=== PATIENT | male | born 1960 | race Caucasian/White ===

== ENCOUNTER → 2021-10-13 08:49 | Outpatient (CLI) | payer BC, SELFPAY ==
--- NOTE | ~2021-10-13 | XR_ITS ---
EXAMINATION: XR knee RT 2V DATE: 10/13/2021 09:08 INDICATION: Right knee pain. TECHNIQUE: 2 views of right knee standing were obtained. COMPARISON: None. FINDINGS: Bone alignment is normal. No fracture. There is mild osteoarthritis of lateral and patellof emoral compartments catheterized by tiny marginal osteophytes. No joint space narrowing. No knee join t effusion. IMPRESSION: 1. Mild right knee osteoarthritis. Reviewed, dictated and finalized at location A. CUTTER
== END ==
PROVIDERS: PCP Family Medicine; Visit Provider Family Medicine
DX: M25.561 Pain in right knee (principal); M17.11 Unilateral primary osteoarthritis, right knee
CPT/HCPCS: 73560

== ENCOUNTER 2022-03-24 00:42 | Day surgery (SDC) | payer BC, SELFPAY ==
[2022-03-16 11:45] VITALS: BMI 41.3
--- NOTE | 2022-03-23 14:34 | PM.HPGS ---
History of Present Illness History of Present Illness Consent: Risks, benefits, and alternatives have been discussed and questions answered. Patient agrees to proceed with procedure. Chief complaint: hx of colon polyps, neoplasm screening Narrative: Devin Smith is a 62 year old male Who was referred for colon cancer screening. He had a tubular adenoma removed about 5 years ago. Review of Systems Review of Systems: All systems reviewed & are unremarkable except as noted in HPI and below PMFSH Past Medical History Medical History BPH loc w urin obs/LUTS Chronic atrial fibrillation Essential hypertension Mixed hyperlipidemia Morbid obesity with BMI of 40.0-44.9, adult Nonrheumatic aortic valve insufficiency LÓPEZ (obstructive sleep apnea) Surgical History Surgical History H/O varicose vein stripping right History of oral cancer Family History Family History Father Hypertension Malignant neoplasm of prostate Family history of lung cancer Mother Hypertension Sibling Malignant neoplasm of prostate Social History Social History Smoking packs per day: 1 Smoking cigarettes per day: 20.0 Years smoked: 40 Smoking pack-years: 40.00 Smoking status: Current every day smoker Tobacco type: cigarettes Second hand tobacco smoke exposure: No Alcohol intake: current Drinks per week: 0 Alcohol use details: rare Substance use: never Substance use type: does not use Living arrangements: alone Gender identity (if verbalized by the patient): Male Sexual Orientation (if Verbalized by the Patient): Straight or Heterosexual Spiritual care concerns: No Meds Home Medications and Allergies Home Medications Medication Instructions Recorded Confirmed Type amlodipine 10 mg-benazepril 20 mg 1 cap PO DAILY #90 caps 10/13/21 03/16/22 Rx capsule (Lotrel) metoprolol succinate 200 mg 200 mg PO DAILY #90 tabs 10/13/21 03/16/22 Rx tablet,extended release 24 hr omeprazole 20 mg capsule,delayed 20 mg PO DAILY #90 caps 10/13/21 03/16/22 Rx release rivaroxaban 20 mg tablet (Xarelto) 20 mg PO DAILY #90 tabs 10/13/21 03/16/22 Rx tamsulosin 0.4 mg capsule 0.4 mg PO BID #180 caps 10/13/21 03/16/22 Rx Adults Multivitamin 1 tab-cap PO DAILY 03/16/22 03/16/22 History Glucosamine Chondroitin 2 tab-cap PO DAILY 03/16/22 03/16/22 History atorvastatin 40 mg tablet 40 mg PO HS 03/16/22 03/16/22 History hydralazine 50 mg tablet 50 mg PO TID 03/16/22 03/16/22 History Allergies Allergy/AdvReac Type Severity Reaction Status Date / Time No Known Allergies Allergy Verified 03/24/22 06:25 Exam Resp: Auscultation: clear to auscultation bilaterally Cardio: Rate: regular rate Rhythm: regular rhythm GI: GI Palp: Yes Soft to palpation and No Tenderness to palpation present (GI) Assessment and Plan Assessment and plan (1) Colon cancer screening: Code(s): Z12.11 - Encounter for screening for malignant neoplasm of colon Status: Acute Assessment and Plan: Colonoscopy with possible biopsy or polypectomy or cautery or injection of substances.
[2022-03-24 06:28] VITALS: BP 167/86; PULSE 97; RESP 21; TEMP 36.4; O2SAT 98
[2022-03-24] MEDS: LACTATED RINGERS 1,000 ML 150 ML IV CONT (06:51)
--- NOTE | 2022-03-24 07:14 | WPDANESEPPF ---
Anes - Initial Pre Proc Eval Procedure: Operation Date: 03/24/22 07:30 Proposed Procedures p Screening Colonoscopy - Armando Lind MD Date/Time: 03/24/22 07:15 Surgeon: Armando Lind MD Pre Op Diagnosis: hx of colon polyps, neoplasm screening Patient Data Age: 62 Gender: M Height: 1.93 m Weight: 150.4 kg Last Vital Signs Temp 36.4 C L 03/24/22 06:28 Pulse 97 03/24/22 06:28 Resp 21 H 03/24/22 06:28 BP 167/86 H 03/24/22 06:28 Pulse Ox 98 03/24/22 06:28 O2 Del Method Room Air 03/24/22 06:28 Allergies Allergy/AdvReac Type Severity Reaction Status Date / Time No Known Allergies Allergy Verified 03/24/22 06:25 Home Medications Medication Instructions Recorded Confirmed Type amlodipine 10 mg-benazepril 20 mg 1 cap PO DAILY #90 caps 10/13/21 03/16/22 Rx capsule (Lotrel) metoprolol succinate 200 mg 200 mg PO DAILY #90 tabs 10/13/21 03/16/22 Rx tablet,extended release 24 hr omeprazole 20 mg capsule,delayed 20 mg PO DAILY #90 caps 10/13/21 03/16/22 Rx release rivaroxaban 20 mg tablet (Xarelto) 20 mg PO DAILY #90 tabs 10/13/21 03/16/22 Rx tamsulosin 0.4 mg capsule 0.4 mg PO BID #180 caps 10/13/21 03/16/22 Rx Adults Multivitamin 1 tab-cap PO DAILY 03/16/22 03/16/22 History Glucosamine Chondroitin 2 tab-cap PO DAILY 03/16/22 03/16/22 History atorvastatin 40 mg tablet 40 mg PO HS 03/16/22 03/16/22 History hydralazine 50 mg tablet 50 mg PO TID 03/16/22 03/16/22 History Patient hx anesthesia problems: none Family hx anesthesia problems: none Results Review: All pre-operative results and documents have been reviewed as part of the pre-operative evaluation. [facility] Past Medical History Medical History (Updated 03/24/22 @ 07:17 by Jag Tinoco MD) BPH loc w urin obs/LUTS Chronic atrial fibrillation Essential hypertension Mixed hyperlipidemia Morbid obesity with BMI of 40.0-44.9, adult Nonrheumatic aortic valve insufficiency LÓPEZ (obstructive sleep apnea) Surgical History Surgical History H/O varicose vein stripping right History of oral cancer Family History Family History Father Hypertension Malignant neoplasm of prostate Family history of lung cancer Mother Hypertension Sibling Malignant neoplasm of prostate Social History Social History (Updated 10/13/21 @ 08:14 by Zenobia Aly) Smoking packs per day: 1 Smoking cigarettes per day: 20.0 Years smoked: 40 Smoking pack-years: 40.00 Smoking status: Current every day smoker Tobacco type: cigarettes Second hand tobacco smoke exposure: No Alcohol intake: current Drinks per week: 0 Alcohol use details: rare Substance use: never Substance use type: does not use Living arrangements: alone Gender identity (if verbalized by the patient): Male Sexual Orientation (if Verbalized by the Patient): Straight or Heterosexual Spiritual care concerns: No Anes - Eval Final PreProcedure Day of Procedure 03/24/22 07:15 Patient weight: morbidly obese Heart: regular rate and rhythm Lungs: clear to auscultation and normal air movement Airway: Mallampati scale class II Neurological: alert and oriented Last oral intake: >/= 8 hours ASA classification: III Emergent: no Anesthetic plan: proceed Anesthesia type and monitoring: general GIVS Results Review: All pre-operative results and documents have been reviewed as part of the pre-operative evaluation. Informed Consent: The patient's anesthetic plan and its attendant risks and benefits were discussed with the patient/family/POA. Questions were solicited and answers provided to the satisfaction of the patient/family/POA.
[2022-03-24 07:46] VITALS: BP 92/37; PULSE 77; RESP 19; O2SAT 96
[2022-03-24 07:56] VITALS: BP 116/64; PULSE 74; RESP 22; O2SAT 97
[2022-03-24 08:06] VITALS: BP 125/78; PULSE 76; RESP 23; O2SAT 98
== END 2022-03-24 08:08 | disposition home or self-care (01) ==
PROVIDERS: PCP Family Medicine; Visit Provider Internal Medicine Gastroenterology
PROC: 0DJD8ZZ Inspection of Lower Intestinal Tract, Via Natural or Artificial Opening Endoscopic (ICD-10-PCS; CPT 45378; principal; 2022-03-24 07:30)
DX: Z12.11 Encounter for screening for malignant neoplasm of colon (principal); K57.30 Diverticulosis of large intestine without perforation or abscess without bleeding; Z79.51 Long term (current) use of inhaled steroids; Z79.01 Long term (current) use of anticoagulants; N40.1 Benign prostatic hyperplasia with lower urinary tract symptoms; G47.33 Obstructive sleep apnea (adult) (pediatric); I10 Essential (primary) hypertension; E78.2 Mixed hyperlipidemia; I48.20 Chronic atrial fibrillation, unspecified; F17.210 Nicotine dependence, cigarettes, uncomplicated; E66.9 Obesity, unspecified; Z68.41 Body mass index [BMI] 40.0-44.9, adult; K63.5 Polyp of colon
CPT/HCPCS: 45380; 88305; J2704; J7120

== ENCOUNTER → 2022-05-14 10:32 | Outpatient (CLI) | payer BC, SELFPAY ==
--- NOTE | ~2022-05-14 | XR_ITS ---
EXAMINATION: XR knee RT min 4V DATE: 05/14/2022 11:14 INDICATION: Right knee pain TECHNIQUE: Four views of the right knee were obtained. COMPARISON: 10/13/2021 FINDINGS: Alignment is normal. No fracture or osteochondral lesion. There is [id number] tricomp artmental osteoarthritis characterized by tiny marginal osteophytes. No joint effusion/synovitis. IMPRESSION: 1. Mild to moderate osteoarthritis without acute osseous abnormality. Reviewed, dictated and finalized at location B.
--- NOTE | ~2022-05-14 | XR_ITS ---
EXAMINATION: XR knee LT min 4V DATE: 05/14/2022 11:14 INDICATION: Left knee pain TECHNIQUE: Four views of the left knee were obtained. COMPARISON: 09/19/2019 FINDINGS: Alignment is normal. No fracture or osteochondral lesion. There is mild tricompartmental os teoarthritis characterized by tiny marginal osteophytes. No joint effusion/synovitis. IMPRESSION: 1. Mild osteoarthritis without acute osseous abnormality. Reviewed, dictated and finalized at location B.
== END ==
PROVIDERS: PCP Family Medicine
DX: M17.0 Bilateral primary osteoarthritis of knee (principal)
CPT/HCPCS: 73564

== ENCOUNTER → 2022-06-30 09:59 | Outpatient (CLI) | payer BC, SELFPAY ==
--- NOTE | ~2022-06-30 | XR_ITS ---
XR lumbar spine 6V w bending DATE: 06/30/2022 10:30 INDICATION: Low back pain, left sciatica for several months TECHNIQUE: AP, lateral, coned lateral lumbosacral and bilateral oblique views. Flexion and extension lateral views COMPARISON: None FINDINGS: There is slight grade 1 anterolisthesis at L4-5 due to degenerative change at the apophysea l joints. No instability is noted on flexion or extension. No fracture or bone destruction. The lumbar pedicles are intact. No spondylolisthesis. There is mild to moderate degenerative spurring with relative preservation of lumbar and lumbosacral interspaces. The sacroiliac joints are intact. Abdominal aortic and iliac arterial calcifications without apparent aneurysm. IMPRESSION: Mild lumbar spine degenerative change Reviewed, dictated and finalized at location A.
== END ==
PROVIDERS: PCP Family Medicine
DX: M54.16 Radiculopathy, lumbar region (principal); M51.36 Other intervertebral disc degeneration, lumbar region
CPT/HCPCS: 72114

== ENCOUNTER 2022-10-07 10:29 | Outpatient (CLI) | payer BC, SELFPAY ==
--- NOTE | ~2022-10-07 | US_ITS ---
EXAMINATION: US venous doppler [facility] DATE: 10/07/2022 11:25 INDICATION: Left lower limb pain TECHNIQUE: Garica scale images without and with compression and Doppler images of the left lower extrem ity veins were obtained. COMPARISON: None FINDINGS: The left common femoral vein, profunda femoral vein, femoral vein, popliteal vein, peroneal trunk, posterior tibial veins, and greater saphenous vein are patent. IMPRESSION: 1. Patent left lower extremity veins. No evidence of deep venous thrombosis. Reviewed, dictated and finalized at location L. Y GO ROUND ATTENDANT
== END 2022-10-07 10:30 | disposition home or self-care (01) ==
PROVIDERS: PCP Family Medicine; Visit Provider Physician Assistant
DX: M79.662 Pain in left lower leg (principal)
CPT/HCPCS: 93970

== ENCOUNTER 2022-10-12 08:24 | Outpatient (CLI) | payer BC, SELFPAY ==
--- NOTE | ~2022-10-12 | US_ITS ---
US arterial ankle brachial ind INDICATION: Left calf pain TECHNIQUE: Segmental pressures and plethysmographic and Doppler waveforms of the brachial and lower e xtremity arteries were obtained. COMPARISON: None. FINDINGS: Right and left brachial artery pressures of 129 mm Hg and 125 mm Hg, respectively, are concordant (no rmal difference <= 30 mmHg). The right ankle-brachial index (THAD) is 1.14 (normal >= 0.9-1.0). The right great toe-brachial index (TBI) is 0.89 (normal >= 0.60). The left THAD is 0.53. The left TBI is 0.23. IMPRESSION: 1. Diminished left ankle and toe brachial indices consistent with moderate-severe peripheral arterial disease. 2: Normal right ankle and toe brachial indices. Reviewed, dictated and finalized at location A. PUMPER PANELBOARD IMPRESSION: 1. Diminished left ankle and toe brachial indices consistent with moderate-bora re peripheral arterial disease. 2: Normal right ankle and toe brachial indices.
== END 2022-10-12 08:25 | disposition home or self-care (01) ==
PROVIDERS: PCP Family Medicine; Visit Provider Physician Assistant
DX: M79.662 Pain in left lower leg (principal); R20.0 Anesthesia of skin; Z87.891 Personal history of nicotine dependence
CPT/HCPCS: 93922

== ENCOUNTER 2025-03-05 10:17 | Outpatient (CLI) | payer BC, SELFPAY ==
--- NOTE | ~2025-03-05 | XR_ITS ---
Clinical Indication: Pneumonia PA and lateral views of the chest: Comparison: 05/25/2017 Findings: There is central congestive change and possible minimal bibasilar pulmonary edema. Cardiom ediastinal silhouette is within normal limits. Bones and soft tissues are unremarkable. Impression: Central congestive change and possible minimal bibasilar pulmonary edema. Reviewed, dictated and finalized at location . Impression: Central congestive change and possible minimal bibasilar pulmonary edema.
== END 2025-03-05 10:18 | disposition home or self-care (01) ==
LOC: MICIMG 10:18
PROVIDERS: PCP Family Medicine; Visit Provider Student in an Organized Health Care Education/Training Program
DX: J18.9 Pneumonia, unspecified organism (principal)
CPT/HCPCS: 71046

== ENCOUNTER 2025-05-09 10:14 | Outpatient (CLI) | payer BC, SELFPAY ==
--- OUTSIDE RECORDS SUMMARY | 2025-05-09 11:32 | XMS_ITS | Encounter Summary ---
Author Organization [facility] Facility Care Team Providers Care Sports Media Name Role Phone Isaac Welch Primary Care Provider [phone] Kb Elkins MD Primary Care Provider Durga Pinzon MD Unavailable [phone] Encounter Details Date Type Department Care Team (Latest Contact Info) Description 03/02/2016 Orders Only [facility]INCON[facility] Provider, MD Michael [address] [place] [id number] Social History Tobacco Use Types Packs/Day Years Used Date Smoking Tobacco: Never Assessed Sex and Gender Information Value Date Recorded Sex Assigned at Not on file Legal 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 Historical Provider Final Res ult documented in this encounter Visit Diagnoses Not on filedocumented in this encounter Care Teams Sports Media Relationship Specialty Start Date End Date Isaac Welch PA [address] [facility] [address] [place] [address] PCP - General Physician Copy Director 10/12/22 10/20/22 Kb Elkins MD [address] [facility] [address] [place] [address] PCP - General Family Medicine 10/21/22 Durga Pinzon MD [address] [facility] [address] [facility] [address] [place] [address] Surgeon Vascular Surgery 11/11/22 documented as of this encounter
--- OUTSIDE RECORDS SUMMARY | 2025-05-09 11:33 | XMS_ITS | Encounter Summary ---
Author Organization [facility] Facility Care Team Providers Care Nylon Machine Operator Name Role Phone Isaac Welch Primary Care Provider [phone] Kb Elkins MD Primary Care Provider Durga Pinzon MD Unavailable [phone] Encounter Details Date Type Department Care Team (Latest Contact Info) Description 04/27/2016 Orders Only [facility] CLINCONV ProviderMichael MD [address] [place] [id number] Social History Tobacco Use Types Packs/Day Years Used Date Smoking Tobacco: Never Assessed Sex and Gender Information Value Date Recorded Sex Assigned at Not on file Legal Sex Male 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 Historical Provider [facility] CARDIAC SERVICES PROCE DURES Final Result documented in this encounter Visit Diagnoses Not on filedocumented in this encounter Care Teams Nylon Machine Operator Relationship Specialty Start Date End Date Isaac Welch PA [address] [facility] [address] [place] [address] PCP - General Physician Or Rn 10/12/22 10/20/22 Kb Elkins MD [address] [facility] [address] [place] [address] PCP - General Family Medicine 10/21/22 Durga Pinzon MD [address] [facility] [address] [facility] [address] [place] [address] Surgeon Vascular Surgery 11/11/22 documented as of this encounter
--- OUTSIDE RECORDS SUMMARY | 2025-05-09 11:33 | XMS_ITS | Encounter Summary ---
Author Organization [facility] Healthcare Address [address] [place] [address] Care Team Providers Care Tinsmith Apprentice Name Role Phone Kb Elkins MD Primary Care Provider Durga Pinzon MD Unavailable [phone] Encounter Details Date Type Department Care Team (Late st Contact Info) Description 03/26/2025 Telephone [facility] Cardiology [address] [facility] [address] [address] Giorgio Marcial MD [address] [place] [id number] Social History Tobacco Use Types Packs/Day Years Used Date Smoking Tobacco: Every Day Cigarettes 0.8 25 Smokeless Tobacco: Never AUDIT-C Answer Date Recorded Q1: How often do you have a drink containing alcohol? Never 10/25/2022 Q2: How many drinks containi ng alcohol do you have on a typical day when you are drinking? Patient does not drink Q3: How often do you have si x or more drinks on one occasion? 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 Gender Identity Male 10/27/2022 11:55 AM NEUROPSYCHIATRIC AIDE Sexual Orientation Straight 06/25/2023 10 :11 AM CDT documented as of this encounter Plan of Treatment Not on file documented as of this encounter Visit Diagnoses Not on filedocumented in this encounter Care Teams Tinsmith Apprentice Relationship Specialty Start Date End Date Kb Elkins MD [address] [facility] [address] [place] [address] PCP - General Family Medicine 10/21/22 Durga Pinzon MD [address] [facility] [address] [facility] [address] [place] [address] Surgeon Vascular Surgery 11/11/22 documented as of this encounter
--- OUTSIDE RECORDS SUMMARY | 2025-05-09 11:33 | XMS_ITS ---
Author Organization [facility] Address [address] [place] [address] Care Team Providers Care Line Supervisor Name Role Phone Kb Elkins MD Primary Care Provider Durga Pinzon MD Unavailable [phone] Active Problems Problem Noted Date Diagnosed Date Peripheral arterial disease 08/17/2024 Pulmonary hypertension 07/08/2023 Morbid (severe) obesity due to excess calories 1 09/07/2022 Body mass index 40.0-44.9, adult ([facility]) 07/08 Ischemic leg 10/21/2022 Assessment & Plan (11/19/2022 1:48 PM CDT): Patient is following up postoperatively status post thrombectomy and angioplasty of his left popliteal artery and left TP trunk and left posterior tibial artery. He also had stenting of the left popliteal artery this was done 4 left lower extremity ischemia on 10/25/2022. He is recovering well. Continues to complain of paresthesia to the left foot otherwise the pain and rest pain he was experiencing has resolved. His lower extremities are warm well perfused with palpable distal pulses. Seen with Dr. Pinzon. Plan: Return in 1 month with lower extremity arterial duplex. Assessment & Plan (10/21/2022 2:25 PM GREENBELT): Patient's clinical presentation and known past medical history make me suspect that this was an embolic event several weeks prior. Patient now experiences very short distance disabling claudication with intermittent paresthesias to the left foot. Have recommended direct admission to the hospital through the emergency department. Patient will be started on therapeutic heparin drip. Patient will require cardiac evaluation with known atrial fibrillation and plan for left lower extremity angiogram possible pharmacomechanical thrombectomy on Tuesday. The procedure indications and all associated risks have been explained. 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 Normal perfusion left lower extremity. Follow up 1 year with duplex. Continue current medical management. Assessment & Plan (07/01/2023 10:04 AM CDT): Status post intervention in September 2022. Patient continues to do well. Denies any claudication symptoms or rest pain. Recent Doppler shows bilateral triphasic waveforms with a patent popliteal stent. He maintains compliance with medications. Patient is strongly voiced his preference for a 1 year follow-up instead of 6 months. Discussed the reasoning behind six- month serial follow-ups in order to maintain patency of stents which patient was not agreeable to. Plan: Maintain compliance with medications, aspirin, Eliquis and Lipitor. Follow-up in 1 year with a lower extremity arterial duplex. Obesity 10/10/2019 Hypertensive left ventricular hypertrophy 2018 Aortic valve regurgitation 08/09/2016 Persistent atrial fibrillation 04/28/2016 Assessment & Plan (10/21/2022 2:25 PM GREENBELT): Admitted to the hospital started on therapeutic heparin drip. Consult cardiology for evaluation. Tobacco dependence syndrome 04/02/2016 Sleep apnea 03/29/2016 Essential hypertension 02/02/2016 Assessment & Plan (07/22/2024 2:06 PM GREENBELT): Hypertension chronic controlled. Continue current medical management. Assessment & Plan (10/21/2022 2:25 PM GREENBELT): Hypertension chronic and controlled. Continue Lotrel. 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 Continue current medical management. Tobacco use disorder 02/02/2016 Assessment & Plan (11/19/2022 1:47 PM CDT): Patient with history of tobacco abuse who is a current everyday 1/2 pack per day smoker. I had a greater than 3 minute discussion with the patient on the importance of smoking cessation and the negative affects on their cardiovascular health. Patient understands importance of cessation. Current Treatment and Therapy Plans No current plan information found. Past Treatment and Therapy Plans No past plan information found. Lifetime Dose Tracking * Chemical Lifetime Dose Automatic Entry Manual Entr y Fluoro Time 14.6 minutes 0 minutes 14.6 minutes Air kerma at the reference point (Ka,r) 383 mGy 0 mGy 383 mGy DAP 151.3 Gy-cm2 0 Gy-cm2 151.3 Gy-cm2
--- OUTSIDE RECORDS SUMMARY | 2025-05-09 11:33 | XMS_ITS | Encounter Summary ---
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 [employer] Gender Identity Male 10/27/2022 11:55 AM [employer]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 [employer]GET Sexual Orientation Straight 06/25/2023 10 :11 AM CDT documented as of this encounter Plan of Treatment Not on file documented as of this encounter Procedures Procedure Name Priority Date/Time Associated Diagnosis Comments THYROID FUNCTION CASCADE Routine 05/08/2025 10:09 AM CDT CBC WITH AUTO DIFFERENTIAL Routine 05/08/2025 10:09 AM CDT MAGNESIUM Routine 05/08/2025 10:09 AM CDT LIPID PANEL Routine 05/08/2025 10:09 AM CDT documented in this encounter Results * Magnesium (05/08/2025 10:09 AM CDT) Magnesium 1.9 1.5 - 2.5 mg/dL [facility] 05/08/2025 10:0 9 AM CDT 05/08/2025 10:14 AM CDT Narrative [facility] - 05/09/2025 5:35 AM CDT FASTING:YES FASTING: YES us Giorgio Marcial MD LAB BLOOD ORDERABLES Final Result [facility] [address] [place] [address] * Lipid panel (05/08/2025 10:09 AM CDT) Cholesterol 106 <200 mg/dL [facility] HDL 40 > OR = 40 mg/dL [facility] Triglycerides 51 <150 mg/dL [facility] LDL 53 mg/dL (calc) [facility] Comment: Reference range: <100 Desirable range <100 mg/dL for primary prevention; <70 mg/dL for patients with CHD or diabetic patients with > or = 2 CHD risk factors. LDL-C is now calculated using the Bart calculation, which is a validated novel method providing better accuracy than the Friedewald equation in the estimation of LDL-C. Johnathan PACHECO et al. KATALINA. 2013;310(19): 3846-7943 (http://education.Xquva/faq/LBG338) Chol/HDL ratio 2.7 <5.0 (calc) [facility] Non-HDL, (LDL+VLDL) 66 <130 mg/dL (calc) [facility] Comment: For patients with diabetes plus 1 major ASCVD risk factor, treating to a non-HDL-C goal of <100 mg/dL (LDL-C of <70 mg/dL) is considered a therapeutic option. 05/08/2025 10:0 9 AM CDT 05/08/2025 10:14 AM CDT Narrative [facility] - 05/09/2025 5:35 AM CDT FASTING:YES FASTING: YES Giorgio Marcial MD LAB BLOOD ORDERABLES Final Result Performing Organization Address [facility] Co de Phone Number [facility] [address] [place] [address] * Thyroid Function Ulysses (05/08/2025 10:09 AM CDT) Pathologist [facility] TSH 0.58 0.40 - 4.50 mIU/L [facility] 05/08/2025 10:0 9 AM CDT 05/08/2025 10:14 AM CDT Narrative [facility] - 05/09/2025 5:35 AM CDT FASTING:YES FASTING: YES Giorgio Marcial MD LAB BLOOD ORDERABLES Final Result Performing Organization Address [facility]/ZIP Co de Phone Number [facility] [address] [place] [address] * (ABNORMAL) CBC with auto differential (05/08/2025 10:09 AM CDT) WBC 7.3 3.8 - 10.8 Thousand/u L [facility] RBC, POC 5.50 4.20 - 5.80 Million/uL [facility] Hgb 17.2(H) 13.2 - 17.1 g/dL [facility] Hct 51.6(H) 38.5 - 50.0 % [facility] MCV 93.8 80.0 - 100.0 fL [facility] MCH 31.3 27.0 - 33.0 pg [facility] MCHC 33.3 32.0 - 36.0 g/dL [facility] Comment: For adults, a slight decrease in the calculated MCHC value (in the range of 30 to 32 g/dL) is most likely not clinically significant; however, it should be interpreted with caution in correlation with other red cell parameters and the patient's clinical condition. Rdw 13.0 11.0 - 15.0 % [facility] Platelets 247 140 - 400 Thousand/u L [facility] MPV 10.0 7.5 - 12.5 fL [facility] Neutrophils, abs 4,292 1,500 - 7,800 cells/uL [facility] Lymphocytes, abs 2,029 850 - 3,900 cells/uL [facility] Monocyte abs 781 200 - 950 cells/uL [facility] Eosinophils, abs 139 15 - 500 cells/uL [facility] Basophils, abs 58 0 - 200 cells/uL [facility] Neutrophils 58.8 % [facility] Lymphocyte pct 27.8 % [facility] Monocytes 10.7 % [facility] Eosinophils 1.9 % [facility] Basophils 0.8 % [facility] 05/08/2025 10:0 9 AM CDT 05/08/2025 10:14 AM CDT Narrative [facility] - 05/09/2025 5:35 AM CDT FASTING:YES FASTING: YES us Giorgio Marcial MD LAB BLOOD ORDERABLES Final Result [facility] [id number] [phone] documented in this encounter Visit Diagnoses Not on filedocumented in this encounter Care Teams Electric Solderer Relationship Specialty Start Date End Date Kb Elkins MD [address] [place] [address] PCP - General Family Medicine 10/21/22 Durga Pinzon MD [address] [facility] [address] [facility] [address] [place] [address] Surgeon Vascular Surgery 11/11/22 documented as of this encounter
--- OUTSIDE RECORDS SUMMARY | 2025-05-09 11:33 | XMS_ITS | Clinical Summary ---
Author Organization [facility] at the [facility] Office Center Address [address] [place] [address] Care Team Providers Care Therapeutic Riding Instructor Name Role Phone Kb Elkins MD Primary Care Provider Durga Pinzon MD Unavailable [phone] Allergies No known active allergies Medications amLODIPine-benaz epriL (LOTREL) 10-20 mg per capsule Take 1 capsule by mouth daily 12/29/2015 Active omeprazole (PriLOSEC) 20 mg capsule Take 1 capsule (20 mg total) by mouth daily Active tamsulosin (FLOMAX) 0.4 mg extended release capsule Take 1 capsule (0.4 mg total) by mouth 2 (two) times a day Active atorvastatin (LIPITOR) 40 mg tablet Take 1 tablet (40 mg total) by mouth nightly Active metoprolol XL (TOPROL-XL) 200 mg extended release tablet Take 1 tablet (200 mg total) by mouth daily Active isosorbide mononitrate ER (IMDUR) 30 mg 24 hr tablet Take 1 tablet (30 mg total) by mouth daily Active hydrALAZINE (APRESOLINE) 50 mg tablet Take 1 tablet (50 mg total) by mouth 3 (three) times a day Active multivitamin tabletIndication s:Vitamin Deficiency Prevention Take 1 tablet by mouth daily Active glucosam-chondro itin-diet cb25 116-100 mg capsule Take 1 capsule by mouth daily Active aspirin 81 mg chewable tabletIndication s:Thrombosis prevention Take 1 tablet (81 mg total) by mouth daily 30 tablet 11 10/27/2022 Active apixaban (ELIQUIS) 5 mg tabletIndication s:atrial fibrillation,mckenzie p venous thrombosis Take 1 tablet (5 mg total) by mouth 2 (two) times a day 60 tablet 11 11/02/2022 Active fluticasone-umec lidin-vilanter (Trelegy Ellipta) 100-62.5-25 mcg inhaler Inhale 1 puff daily 03/12/2025 Active albuterol HFA (PROVENTIL HFA,VENTOLIN HFA,PROAIR HFA) 90 mcg/actuation inhaler Inhale 1 puff every 4 (four) hours as needed 03/12/2025 Active Active Problems Problem Noted Date Diagnosed Date Peripheral arterial disease 08/17/2024 Pulmonary hypertension 07/08/2023 Morbid (severe) obesity due to excess calories 1 09/07/2022 Body mass index 40.0-44.9, adult (CMS/HCC) 07/08 Ischemic leg 10/21/2022 Assessment & Plan [...] duplex. Assessment & Plan (10/21/2022 2:25 PM PURSE SEINING HAND): Patient's clinical presentation and known past medical [...] (10/22/2022): Added automatically from request for surgery [id number] Assessment & Plan (07/22/2024 2:06 PM PURSE SEINING HAND): Patient continues to do well no recurrent [...] 04/28/2016 Assessment & Plan (10/21/2022 2:25 PM PURSE SEINING HAND): Admitted to the hospital started on therapeutic heparin drip. Consult cardiology for evaluation. Tobacco dependence syndrome 04/02/2016 Sleep apnea 03/29/2016 Essential hypertension 02/02/2016 Assessment & Plan (07/22/2024 2:06 PM PURSE SEINING HAND): Hypertension chronic controlled. Continue current medical management. Assessment & Plan (10/21/2022 2:25 PM PURSE SEINING HAND): Hypertension chronic and controlled. Continue Lotrel. 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 Continue current medical management. [...] cardiovascular health. Patient understands importance of cessation. Encounters Date Type Department Care Team Description 05/08/2025 Orders Only [facility] Cardiology [address] [place] [phone] Bakari Machado MD 04/30/2025 Results Follow-Up [facility] Cardiology [address] [place] [phone] Aleshia Kimball MA Transthoracic Echo (TTE) Complete W Doppler/CF 04/25/2025 8:50 AM CDT - 04/25/2025 11:59 PM CDT Hospital Encounter [facility] OP Cardiac Testing [address] [place] [id number] Essential hypertension; Persistent atrial fibrillation (HCC); Ischemic leg; Aortic valve insufficiency, etiology of cardiac valve disease unspecified; Pulmonary hypertension (HCC); Peripheral arterial disease; Other hyperlipidemia; Popliteal artery occlusion, left; Tobacco dependence syndrome; Obstructive sleep apnea syndrome; Body mass index 40.0-44.9, adult (CMS/HCC) (HCC) Discharge Disposition: Discharge to home or self care 04/10/2025 Telephone [facility] Cardiology [address] [place] [phone] Bakari Machado MD 03/27/2025 Telephone [facility] Cardiology [address] [place] [phone] Bakari Machado MD 03/26/2025 Telephone [facility] Cardiology [address] [place] [phone] Bakari Machado MD 03/25/2025 Telephone [facility] Cardiology [address] [place] [phone] Bakari Machado MD 03/25/2025 Telephone [facility] Cardiology [facility] [address] [place] [address] Bakari Machado MD 03/22/2025 9:00 AM CDT Office Visit [facility] Cardiology [facility] [address] [place] [address] Bakari Machado MD Essential hypertension (Primary Dx); Persistent atrial fibrillation (HCC); Ischemic leg; Aortic valve insufficiency, etiology of cardiac valve disease unspecified; Pulmonary hypertension (HCC); Peripheral arterial disease; Other hyperlipidemia; Popliteal artery occlusion, left; Tobacco dependence syndrome; Obstructive sleep apnea syndrome; Body mass index 40.0-44.9, adult (CMS/HCC) (HCC) from Last 3 Months Immunizations Immunization Administration Dates Next Due Influenza, Quadrivalent, Spl it, Preservative Free, Intramuscular 04/29/2017 Influenza, Unspecified 06/21/2022,06/17/2016 Pfizer SARS-CoV-2 Monovalent Vaccination (12+ Yrs) PURPLE 12/09/2021,06/11/2021 Pneumococcal Polysaccharide PPV23 06/17/2016 Surgical History Surgery Date Site/Laterality Comments VARICOSE VEIN SURGERY Right Stripping THROMBECTOMY 10/25/2022 Left LLE angiogram. [facility]- thromb LT pop, TPT, & post-tib arteries. BA LT post-tib & TPT. BA & stenting LT pop artery. Medical History Medical History Date Comments HTN (hypertension) A-fib (HCC) LÓPEZ (obstructive sleep apnea) GERD (gastroesophageal reflux disease) Hyperlipidemia Aortic valve regurgitation Pneumonia Family History Medical History Relation Name Comments Hypertension Father Prostate cancer Father Hypertension Mother chioma Relation Name Status Comments Father Mother chioma Social History Tobacco Use Types Packs/Day Years Used Date Smoking Tobacco: Every Day Cigarettes 0.8 25 Smokeless Tobacco: Never Tobacco Cessation:Ready to Q uit: No AUDIT-C Answer Date Recorded Q1: How often [...] on file Legal Sex Male 8:44 PM PURSE SEINING HAND Gender Identity Male 10/27/2022 11:55 AM PURSE SEINING HAND Sexual Orientation Straight 06/25/2023 10 :11 AM CDT Obstetrics History Last Filed Vital Signs Vital Sign Reading Time Taken Comments Blood Pressure 110/52 03/22/2025 8:55 AM CDT Pulse 82 03/22/2025 8:55 AM CDT Temperature 36.2 C (97.2 F) 10/26/2022 12:06 PM PURSE SEINING HAND Respiratory Rate 16 10/26/2022 12:06 PM PURSE SEINING HAND Oxygen Saturation 95% 03/22/2025 8:55 AM CDT Inhaled Oxygen Concentration - - Weight 151 kg (333 lb) 03/22/2025 8:55 AM CDT Height 193 cm (6' 4) 03/22/2025 8:55 AM CDT Body Mass Index 40.53 03/22/2025 8:55 AM CDT Plan of Treatment Health Maintenance Due Date Last Done Comments Colon Cancer Screening-Colonoscopy 1960 Depression Screening 1960 Hepatitis C Screening 1960 Prostate Cancer Screening-PSA 1961 DTaP/Tdap/Td Vaccine (1 - Tdap) 02/11/1972 Hepatitis B Screening 1979 Regular Well Visit/Exam 18-64 1979 Lung Cancer Screening 2011 Zoster Vaccine (2 of 3) 03/11/2019 01/14/2019, 10/24 Pneumococcal vaccine <65 (3 of 3 - PCV20 or PCV21) 04/26/2023 04/26/2018, 06/17/2016 Covid-19 Vaccine (5 - 2024-2 6 season) 2025 12/09/2021, 06/11/2021, 11/20/2020, Additional history exists Influenza Vaccine (#1) 2025 2, 05/13/2020, 04/25/2019, Additional history exists Medical Devices Implanted Type Area Enrobing Machine Corder Device Identifier Shelf Expiration Date Model / Serial / Lot [employer] Device Clsr Perclose Prostyle Sut-Mediatd Closure-Repair Sys [id number] - [id number] Implanted:Qty: 1 on 10/25/2022 by Durga Pinzon MD at [facility] Right: Leg [employer] 05/28/2024 [id number] / / [id number] [employer] Viabahn 6mm 6fr 5cm 120cm Delivery System Superficial Femoral [id number] - [id number] Implanted:Qty: 1 on 10/25/2022 by Durga Pinzon MD at [facility] Right: Leg [employer] [id number] / / Procedures Procedure Name Priority Date/Time Associated Diagnosis Comments MAGNESIUM Routine 05/08/2025 10:09 AM CDT LIPID PANEL Routine 05/08/2025 10:09 AM CDT THYROID FUNCTION CASCADE Routine 05/08/2025 10:09 AM CDT CBC WITH AUTO DIFFERENTIAL Routine 05/08/2025 10:09 AM CDT TRANSTHORACIC ECHO (TTE) COMPLETE W DOPPLER/CF WO CONTRAST Routine 04/25/2025 9:44 AM CDT Essential hypertension Persistent atrial fibrillation (HCC) Ischemic leg Aortic valve insufficiency, etiology of cardiac valve disease unspecified Pulmonary hypertension (HCC) Peripheral arterial disease Other hyperlipidemia Popliteal artery occlusion, left Tobacco dependence syndrome Obstructive sleep apnea syndrome Body mass index 40.0-44.9, adult (CMS/HCC) (HCC) ECG 12-LEAD Routine 03/22/2025 8:59 AM CDT Essential hypertension Persistent atrial fibrillation (HCC) Ischemic leg Aortic valve insufficiency, etiology of cardiac valve disease unspecified Pulmonary hypertension (HCC) Peripheral arterial disease Other hyperlipidemia Popliteal artery occlusion, left Tobacco dependence syndrome Obstructive sleep apnea syndrome from Last 3 Months Results * Thyroid Function [place] (05/08/2025 10:09 AM CDT) TSH 0.58 0.40 - 4.50 mIU/L [facility] 05/08/2025 10:0 9 AM CDT 05/08/2025 10:14 AM CDT Narrative [facility] - 05/09/2025 5:35 AM CDT FASTING:YES FASTING: YES us Bakari Machado MD LAB BLOOD ORDERABLES Final Result [facility] [address] [address] * (ABNORMAL) CBC with auto differential (05/08/2025 [...] 05/09/2025 5:35 AM CDT FASTING:YES FASTING: YES Bakari Machado MD LAB BLOOD ORDERABLES Final Result Performing Organization Address [facility] de Phone Number [facility] [address] [place] [address] * Magnesium (05/08/2025 10:09 AM CDT) Pathologist [facility] Magnesium 1.9 1.5 - 2.5 mg/dL [facility] 05/08/2025 10:0 9 AM CDT 05/08/2025 10:14 AM CDT Narrative [facility] - 05/09/2025 5:35 AM CDT FASTING:YES FASTING: YES Bakari Machado MD LAB BLOOD ORDERABLES Final Result Performing Organization Address [facility] de Phone Number [facility] [address] [place] [address] * Lipid panel (05/08/2025 10:09 AM CDT) [...] factors. LDL-C is now calculated using the Johnathan-Bowens calculation, which is a validated novel method providing better accuracy than the Friedewald equation in the estimation of LDL-C. Johnathan SS et al. KATALINA. 2013;310(49): 5801-2094 (http://education.DataStax/faq/RGX707) Chol/HDL ratio 2.7 <5.0 (calc) [facility] [...] 5:35 AM CDT FASTING:YES FASTING: YES us Bakari Machado MD LAB BLOOD ORDERABLES Final Result [facility] [address] [place] [address] * TRANSTHORACIC ECHO (TTE) COMPLETE W DOPPLER/CF WO CONTRAST (04/25/2025 9:44 AM CDT) Anatomical Region Laterality Modality Ultrasound 04/25/2025 8:59 AM CDT Narrative 04/27/2025 4:33 PM CDT Transthoracic Echocardiographic Report Patient Name: GREGG RECIO W : 1960 (65y 2m) Sex: M Study Date: 04/25/2025 08:59:53 AM Ht(Inch): 76 Wt(Lb): 333 BSA: 2.85 Foot Doctor: Iris Love RDCS Order Provider: BAKARI MACHADO Heart Rate: 86 BMI: 40.53 BP: 110/52 Ref Provider: BAKARI MACHADO PROCEDURES: Echocardiographic Report: ([id number]) Transthoracic complete echo, 2D, spectral and tissue Doppler, color flow Doppler, M-mode. INDICATIONS: I10 Essential (primary) hypertension, I48.19 Other persistent atrial fibrillation, I99.8 Other disorder of circulatory system, I35.1 Nonrheumatic aortic (valve) insufficiency, I27.20 Pulmonary hypertension, unspecified, I73.9 Peripheral vascular disease, unspecified, E78.49 Other hyperlipidemia, I70.202 Unspecified atherosclerosis of [place] arteries of extremities, left leg, F17.200 Nicotine dependence, unspecified, uncomplicated, G47.33 Obstructive sleep apnea (adult) (pediatric), and Z68.41 Body mass index (BMI) 40.0-44.9, adult. FINDINGS: Left Ventricle: Mild concentric hypertrophy with normal LV size and low-normal function EF 50-55% RV appears to have good function from subcostal view Both atria are dilated Mild degenerative valvular changes Mitral valve: Posterior calcification. Valve opens well. I disagree with mean gradient measurements (measured on both sides of QRS) Aortic valve is trileaflet with sclerosis and mildly elevated peak velocity There is egtw-dt-diuoyikp AI Aortic root is 4.2 cm. Ascending aorta 4.0 cm. Left Atrium: Moderately dilated left atrium. Right Atrium: Mildly dilated right atrium. Mitral Valve: The mean transmitral gradient is: 3 mmHg. Aortic Valve: The mean transaortic gradient is 7 mmHg. The aortic valve area by the continuity equation (using VTI) is 3.04 cm2. The aortic valve area by the continuity equation (using Peak Naveen) is 2.8 cm2. Tricuspid Valve: The estimated right ventricular systolic pressure is 23 mmHg. IVC: The estimated RA pressure is 8 mmHg. CONCLUSIONS: 1. Mild concentric hypertrophy with normal LV size and low-normal function EF 50-55% RV appears to have good function from subcostal view Both atria are dilated Mild degenerative valvular changes Mitral valve: Posterior calcification. Valve opens well. I disagree with mean gradient measurements (measured on both sides of QRS) Aortic valve is trileaflet with sclerosis and mildly elevated peak velocity There is uhsj-ea-yxhodqaw AI Aortic root is 4.2 cm. Ascending aorta 4.0 cm. MEASUREMENTS: 2D/MM Value Range Doppler Value LVIDd 2D 5.47 cm [ 3.50 - 5.70 ] AV Peak Naveen 1.82 m/s LVIDs 2D 3.26 cm [ 3.10 - 4.60 ] AV Peak PG 13.25 mmHg IVSd 2D 1.42 cm [ 0.60 - 1.20 ] AV Mean PG 7.00 mmHg LVPWd 2D 1.37 cm [ 0.60 - 1.10 ] AV VTI 39.60 cm LV Thickness Ratio 1.04 LVOT Peak Naveen 1.34 m/s LV Mass 2D 338.55 g LVOT Peak PG 7.18 mmHg LV Mass Index 2D 118.96 g/m2 LVOT Mean PG 4.00 mmHg RWT 0.50 LVOT VTI 31.70 cm LA Dimension 2D 4.90 cm [ 1.90 - 4.00 ] LVOT Diam 2.20 cm LA Length 2C 7.36 cm SV LVOT 120.00 cm3 LA Length 4C 7.22 cm CARROL VTI 3.04 cm2 LA Volume BP 139.00 ml CARROL Vmax 2.80 cm2 LA Volume Index 48.84 ml/m2 [ 16.00 - 34.00 ] LVOT/AV VTI 0.80 - Dimensionless index (DVI) AoR Diam 2D 4.20 cm [ 2.00 - 3.70 ] AI Peak Naveen 3.84 m/s Ao Root Index 1.48 cm/m2 [ 1.00 - 2.00 ] AI Peak PG 59.00 mmHg Asc Ao Diam 2D 4.00 cm AI Decel Time 505.00 sec Asc Ao Index 1.41 cm/m2 AI Decel [place] 2.06 m/s2 AI PHT 558.00 ms MV E Peak Naveen 1.38 m/s MV Peak Naveen 1.57 m/s MV Peak PG 9.86 mmHg MV Mean PG 3.00 mmHg MV VTI 48.30 cm MV Decel Time 165.00 msec Med E` Naveen 0.07 m/s Lat E` Naveen 0.09 m/s Average E/E` 1725.00 TV Peak Naveen 0.73 m/s TV Peak PG 2.13 mmHg RV S` 12.10 cm/sec TR Peak Naveen 1.93 m/s TR Peak PG 14.9 mmHg RA Pressure 8.00 mmHg RVSP 22.90 mmHg PV Peak Naveen 1.07 m/s PV Peak PG 4.58 mmHg - ATTESTATION: I have reviewed and interpreted the pertinent images and measurements of this study. I attest to the conclusions in the final report that is provided above. DISCLAIMER: The study images and the final report will be retained in the patient chart by the [facility] for the legally required time period. This chart constitutes the legal record of any testing performed. Electronically Signed By: Jona Haley MD 04/27/2025 4:32:39 PM CDT Procedure Note Jona Haley MD - 04/27/2025 Transthoracic Echocardiographic Report Patient Name: GREGG RECIO W : 1960 (65y 2m) Sex: M Study Date: 04/25/2025 08:59:53 AM Ht(Inch): 76 Wt(Lb): 333 BSA: 2.85 Foot Doctor: Iris Love RDCS Order Provider: BAKARI MACHADO Heart Rate: 86 BMI: 40.53 BP: 110/52 Ref Provider: BAKARI MACHADO PROCEDURES: Echocardiographic Report: ([id number]) Transthoracic complete echo, 2D,spectral and tissue Doppler, color flow Doppler, M-mode. INDICATIONS: I10 Essential (primary) hypertension, I48.19 Other persistent atrialfibrillation, I99.8 Other disorder of circulatory system, I35.1 Nonrheumatic aortic (valve)insufficiency, I27.20 Pulmonary hypertension, unspecified, I73.9 Peripheral vasculardisease, unspecified, E78.49 Other hyperlipidemia, I70.202 Unspecifiedatherosclerosis of [place] arteries of extremities, left leg, F17.200 Nicotine dependence,unspecified, uncomplicated, G47.33 Obstructive sleep apnea (adult) (pediatric), andZ68.41 Body mass index (BMI) 40.0-44.9, adult. FINDINGS: Left Ventricle: Mild concentric hypertrophy with normal LV size andlow-normal function EF 50-55% RV appears to have good function from subcostal view Both atria are dilated Mild degenerative valvular changes Mitral valve: Posterior calcification. Valve opens well. I disagree withmean gradient measurements (measured on both sides of QRS) Aortic valve is trileaflet with sclerosis and mildly elevated peakvelocity There is iraa-gx-yhzjvsja AI Aortic root is 4.2 cm. Ascending aorta 4.0 cm. Left Atrium: Moderately dilated left atrium. Right Atrium: Mildly dilated right atrium. Mitral Valve: The mean transmitral gradient is: 3 mmHg. Aortic Valve: The mean transaortic gradient is 7 mmHg. The aortic valvearea by the continuity equation (using VTI) is 3.04 cm2. The aortic valve area by thecontinuity equation (using Peak Naveen) is 2.8 cm2. Tricuspid Valve: The estimated right ventricular systolic pressure is 23mmHg. IVC: The estimated RA pressure is 8 mmHg. CONCLUSIONS: 1. Mild concentric hypertrophy with normal LV size and low-normalfunction EF 50-55% RV appears to have good function from subcostal view Both atria are dilated Mild degenerative valvular changes Mitral valve: Posterior calcification. Valve opens well. I disagree withmean gradient measurements (measured on both sides of QRS) Aortic valve is trileaflet with sclerosis and mildly elevated peakvelocity There is bgpu-tj-mgdxlyqv AI Aortic root is 4.2 cm. Ascending aorta 4.0 cm. MEASUREMENTS: 2D/MM Value Range DopplerValue LVIDd 2D 5.47 cm [ 3.50 - 5.70 ] AV Peak Vel1.82 m/s LVIDs 2D 3.26 cm [ 3.10 - 4.60 ] AV Peak PG13.25 mmHg IVSd 2D 1.42 cm [ 0.60 - 1.20 ] AV Mean PG7.00 mmHg LVPWd 2D 1.37 cm [ 0.60 - 1.10 ] AV VTI39.60 cm LV Thickness Ratio 1.04 LVOT Peak Vel1.34 m/s LV Mass 2D 338.55 g LVOT Peak PG7.18 mmHg LV Mass Index 2D 118.96 g/m2 LVOT Mean PG4.00 mmHg RWT 0.50 LVOT VTI31.70 cm LA Dimension 2D 4.90 cm [ 1.90 - 4.00 ] LVOT Diam2.20 cm LA Length 2C 7.36 cm SV AJTV059.00 cm3 LA Length 4C 7.22 cm CARROL VTI3.04 cm2 LA Volume BP 139.00 ml CARROL Vmax2.80 cm2 LA Volume Index 48.84 ml/m2 [ 16.00 - 34.00 ] LVOT/AV VTI0.80 - Dimensionless index (DVI) AoR Diam 2D 4.20 cm [ 2.00 - 3.70 ] AI Peak Vel3.84 m/s Ao Root Index 1.48 cm/m2 [ 1.00 - 2.00 ] AI Peak PG59.00 mmHg Asc Ao Diam 2D 4.00 cm AI Decel Mxwd333.00 sec Asc Ao Index 1.41 cm/m2 AI Decel Slope2.06 m/s2 AI PHT 558.00 ms MV E Peak Naveen 1.38 m/s MV Peak Naveen 1.57 m/s MV Peak PG 9.86 mmHg MV Mean PG 3.00 mmHg MV VTI 48.30 cm MV Decel Time 165.00 msec Med E` Naveen 0.07 m/s Lat E` Naveen 0.09 m/s Average E/E` 1725.00 TV Peak Naveen 0.73 m/s TV Peak PG 2.13 mmHg RV S` 12.10 cm/sec TR Peak Naveen 1.93 m/s TR Peak PG 14.9 mmHg RA Pressure 8.00 mmHg RVSP 22.90 mmHg PV Peak Naveen 1.07 m/s PV Peak PG 4.58 mmHg - ATTESTATION: I have reviewed and interpreted the pertinent images and measurements ofthis study. I attest to the conclusions in the final report that is provided above. DISCLAIMER: The study images and the final report will be retained in the patientchart by the [facility] for the legally required time period. This chart constitutesthe legal record of any testing performed. Electronically Signed By: Jona Haley MD 04/27/2025 4:32:39 PM CDT us Bakari Machado MD CV ECHO PROCEDURES Final R esult * ECG 12 lead (03/22/2025 8:59 AM CDT) us Bakari Machado MD ECG ORDERABLES Final Resu lt from Last 3 Months Insurance [place] For more information, please contact: [phone] Documents on File Type Date Recorded Patient Optical Engineer Expl anation ADVANCE DIRECTIVE 03/29/2016 12:00 AM POWER OF LAY OUT HELPER FINANCIAL/MEDICAL * Full Code (Latest Code Status on File) Date Activated Date Inactivated Comments 10/21/2022 2:33 PM 10/26/2022 7:35 PM Care Teams Therapeutic Riding Instructor Relationship Specialty Start Date End Date Kb Elkins MD [address] [facility] [address] [place] [address] PCP - General Family Medicine 10/21/22 Durga Pinzon MD [address] [facility] [address] [place] [address] Surgeon Vascular Surgery 11/11/22
--- OUTSIDE RECORDS SUMMARY | 2025-05-09 11:33 | XMS_ITS | Encounter Summary ---
Author Organization [facility] Healthcare Address [address] [place] [address] Care Team Providers Care Warehouse Production Worker Name Role Phone Kb Elkins MD Primary Care Provider Durga Pinzon MD Unavailable [phone] Encounter Details Date Type Department Care Team (Late st Contact Info) Description 03/25/2025 Telephone [facility] Cardiology [address] [facility] [address] [address] Giorgio Marcial MD [address] [place] [id number] Social History Tobacco Use Types Packs/Day [...] on file Legal Sex Male 8:44 PM MICROSTRATEGY BI DEVELOPER Gender Identity Male 10/27/2022 11:55 AM MICROSTRATEGY BI DEVELOPER Sexual Orientation Straight 06/25/2023 10 :11 AM CDT documented as of this encounter Plan of Treatment Not on file documented as of this encounter Visit Diagnoses Not on filedocumented in this encounter Care Teams Warehouse Production Worker Relationship Specialty Start Date End Date Kb Elkins MD [address] [place] [address] PCP - General Family Medicine 10/21/22 Durga Pinzon MD [address] [facility] [address] [facility] [address] [place] [address] Surgeon Vascular Surgery 11/11/22 documented as of this encounter
--- OUTSIDE RECORDS SUMMARY | 2025-05-09 11:33 | XMS_ITS | Encounter Summary ---
Author Organization [facility] Healthcare Address [address] [place] [address] Care Team Providers Care Direct Support Staff Name Role Phone Kb Elkins MD Primary Care Provider Durga Pinzon MD Unavailable [phone] Reason for Referral * MRI/CAT/PET Scan (Routine) - Pending Review Specialty Diagnoses / Procedures Referred By Contac t Referred To Contact Radiology Diagnoses Enlarged aorta Procedures CTA Chest W WO Contrast CTA Chest W WO Contrast Giorgio Marcial MD [address] [place] [address] Phone: tel: fax: External Order Referral ID Status Reason Start Date Expiration Date V isits Requested Visits Authorized [id number] Pending Review 04/30/2025 05/30/2026 1 1 Encounter Details Date Type Department Care Team (Latest Contact Info) Description 04/30/2025 Results Follow-Up 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 We are now sending the order to [facility]. Can you please get this authorized with this facility? Please let me know if you need anything else. * Addendum Note - Mao Kimball MA - 05/01/2025 9:29 AM CDTAddended by: MAO KIMBALL I. on: 05/01/2025 09:29 AM Modules accepted: Orders * Telephone Encounter - Mao Kimball MA - 05/01/2025 9:26 AM CDT Patient notified and requested that this be performed at [facility] in [place], [place]. Spoke to facility who confirmed they can do this test but have limited days available for contrast testing. Patient notified. Order sent. * Result Encounter Note - Mao Kimball MA - 04/30/2025 3:37 PM CDT LMOV for patient to call office to discuss these results, CTA order placed. documented in this encounter Plan of Treatment Scheduled Orders Name Type Priority Associated Diagnoses Orde r Schedule CTA Chest W WO Contrast Imaging Schedule Routine, Read Routine (OP Routine) Enlarged aorta Expected: 05/01/2025, Expires: 04/30/2026 documented as of this encounter Visit Diagnoses Diagnosis Enlarged aorta- Primary Other specified disorders of arteries and arterioles documented in this encounter Care Teams Direct Support Staff Relationship Specialty Start Date End Date Kb Elkins MD [address] [facility] [address] [facility] [address] [place] [address] PCP - General Family Medicine 10/21/22 Durga Pinzon MD [address] [facility] [address] [facility] [address] [place] [address] Surgeon Vascular Surgery 11/11/22 documented as of this encounter
--- NOTE | 2025-05-17 17:09 | P.PCNPFT_ITS ---
PFT Procedure Performed PFT Procedure Performed Plethysmography (Lung Vol) Diffusing Cap (DLCO) Flow Vol Loop Spirometry w/o Bronchodil PFT Interpretation DOS: 05/09/2025 REQUESTING: Aida Ly PA-C REASON FOR TESTING: dyspnea PULMONARY FUNCTION TESTS Results are reliable and reproducible. Repeatability of spirometry FEV1 maneuver is Grade A. Hansel: GLI 2012 reference equations were used. Spirometry: The FEV1 is 2.31 L, 57%. The FVC is 3.83 L, 73%. The FEV1/FVC ratio is 60%, decreased. No bronchodilator was given. Lung volumes: The total lung capacity is 5.77 L, 72%, decreased. The functional residual capacity is 3.26 L, 76%, normal. The residual volume is 1.70 L, 65%. Th e RV/TLC is 29%. Airway resistance is increased. Diffusion: DLCO is 17.3, 59%, reduced. The DLCO/VA is 3.80, 99%, normal. Flow volume loop: The flow volume loop shows coving of the expiratory limb. IMPRESSION: This study shows a mixed pattern with both a moderate obstructive ventilatory impairment, mild restrictive pattern and mild diffusion impairment which corrects for alveolar volume. No prior studies for comparison. Fide Acevedo MD
== END 2025-05-09 10:15 | disposition home or self-care (01) ==
PROVIDERS: PCP Family Medicine; Visit Provider Student in an Organized Health Care Education/Training Program
DX: R06.09 Other forms of dyspnea (principal); Z72.0 Tobacco use
CPT/HCPCS: 94375; 94726; 94729

== ENCOUNTER 2025-05-23 15:25 | Inpatient (IN) | payer BC, SELFPAY ==
[2025-05-23] VITALS (13 sets, daily range): BP systolic 95–130; BP diastolic 58–97; PULSE 64–86; RESP 12–24; TEMP 36.4–36.9; O2SAT 93–99; BMI 39.4; BMI 39.9
--- NOTE | ~2025-05-23 | XR_ITS ---
XR chest 1V portable 05/23/2025 16:04 Indication: Shortness of breath Procedure: AP portable chest Comparison: 03/05/2025 Findings: Cardiomegaly with interstitial edema. No significant pleural effusion or pneumothorax. No acute osseous abnormality. There is atherosclerosis. Impression: 1: Cardiomegaly with mild interstitial edema. Reviewed, dictated and finalized at location O. Impression: 1: Cardiomegaly with mild interstitial edema.
--- NOTE | ~2025-05-23 | US_ITS ---
US thyroid INDICATION: Dysphasia and enlarged thyroid. TECHNIQUE: Real-time sonographic images of the thyroid gland were obtained. COMPARISON: CTA chest 05/23/2025 FINDINGS: Right thyroid lobe measures 7.6 x 6.5 x 4.5 cm. There is a 5.6 x 3.9 x 3.2 cm anechoic structure with a few scattered internal echoes in the right thyroid lobe. Isthmus is heterogeneous and measures 0.7 cm. Left thyroid lobe measures 6.4 x 3.2 x 1.8 cm and is heterogeneous. There is a 3.1 x 2.4 x 2.4 cm solid heterogeneous nodule in the left mid thyroid lobe. There is a 3.0 x 2 x 1 x 2.8 cm anechoic structure in the left mid thyroid lobe. IMPRESSION: 1. There is a 3.1 cm nodule in the left mid thyroid lobe. A fine needle aspiration is recommended. 2. There is a 5.6 cm mildly complicated cyst in the right thyroid lobe. 3. There is a 3 cm cyst in the left thyroid lobe. Reviewed, dictated and finalized at location Q. IMPRESSION: 1. There is a 3.1 cm nodule in the left mid thyroid lobe. A fine needle aspira tion is recommended. 2. There is a 5.6 cm mildly complicated cyst in the right thyroid lobe. 3. There is a 3 cm cyst in the left thyroid lobe.
--- NOTE | ~2025-05-23 | XR_ITS ---
EXAMINATION: XR chest 1V portable COMPARISON: No comparisons available. HISTORY: Post-bronchoscopy; GI Lab post-op room 12 FINDINGS: Moderate pulmonary venous congestion. No pneumothorax. Moderate cardiomegaly. Mediastinal and hilar contours are within normal limits. Bony thorax no acute abnormality. Miscellaneous: None Impression: CHF. No pneumothorax Reviewed, dictated and finalized at location P. Impression: CHF. No pneumothorax
--- NOTE | ~2025-05-23 | XR_ITS ---
Examination: XR chest 1V portable Clinical History: LLL consolidation Comparison: 1 day prior Technique: Portable AP Findings: Heart size mildly enlarged. Left lower lobe mass and atelectasis persist. Developing interstitial markings right lung. No acute bony abnormality. IMPRESSION: 1. Developing unilateral interstitial pulmonary edema and/or pneumonitis right lung. Reviewed, dictated and finalized at location R.
--- NOTE | ~2025-05-23 | XR_ITS ---
Examination: XR chest 1V portable Clinical History: left lower lobe mass Comparison: 05/23/2025 Technique: Portable AP Findings: Heart size normal. Left lower lobe mass and atelectasis persist. No acute bony abnormality. IMPRESSION: 1. No significant change. 2. Left lower lobe mass and complete left lower lobe atelectasis as before. Reviewed, dictated and finalized at location R.
--- NOTE | ~2025-05-23 | CT_ITS ---
EXAMINATION: CTA chest PE protocol, 05/23/2025 16:50 CDT HISTORY: hemoptysis COMPARISON: No comparisons available. TECHNIQUE: CTA examination is obtained with contrast CTA examination technique is performed with arterial phase of contrast-enhancement. 3-D reconstruction with thin MIP axial and MPR coronal imaging is provided Isovue 300, 92cc injected IV. One or more of the following dose reduction techniques were used: automated exposure control, adjustment of the mA and/or kV according to patient size, use of iterative reconstruction technique. FINDINGS: No significant coronary calcification is present ([id number]) LUNGS: The contrast bolus is adequate, there is no pulmonary embolism identified. No tracheomalacia. No bronchiectasis. There is a large focus of abnormal density in the left lower lobe with no significant air bronchograms appreciated and occlusion of the bronchus in this location. Minimal emphysematou s changes. No bullous formation. Minimal pulmonary fibrotic changes. No significant honeycombing is identified. There is volume loss in the left lung with mediastinal shift to the left. Scattered bilateral punctate calcified granulomas. HEART AND PERICARDIUM: Mild cardiomegaly. Trace pericardial effusion. AORTA: Normal caliber aorta.. PULMONARY ARTERIES: No pulmonary embolism ADENOPATHY/MEDIASTINUM: There are multiple enlarged lymph nodes within the mediastinum and the kathia the largest in the subcarinal space measuring 4 x 3.5 cm. LIMITED VIEWS OF THE ABDOMEN: Partially imaged large bilateral renal cysts the largest on the right side 8 x 6 cm incompletely evaluated, renal ultrasound is suggested. Minimal cholelithiasis. OSSEOUS STRUCTURES: No sclerotic or lytic lesions. No acute rib fractures. OVERLYING SOFT TISSUES: Unremarkable. THYROID: There are large cystic appearing bilateral thyroid nodules incompletely evaluated the largest on the right side 5 x 6 cm, ultrasound is recommended. IMPRESSION: 1. Negative for pulmonary embolism. Large area of abnormal density within the left lower which may reflect a large infiltrate with associated lymphadenopathy however there are no significant air bronchograms and the possibility of an obstructing endobronchial lesion should be considered. Metastases are not excluded. Bronchoscopy is suggested Reviewed, dictated and finalized at location P. IMPRESSION: 1. Negative for pulmonary embolism. Large area of abnormal density within the l eft lower which may reflect a large infiltrate with associated lymphadenopathy however there are no significant air bronchograms and the possibility of an obs tructing endobronchial lesion should be considered. Metastases are not excluded . Bronchoscopy is suggested
--- NOTE | 2025-05-23 15:36 | ECG_ITS ---
Test Date: 2025-05-23 15:40:03 Measurements Intervals Ruby Rate: 94 P: 0 NH: 0 QRS: 35 QRSD: 89 T: 52 QT: 374 QTc: 468 Interpretive Statements ATRIAL FIBRILLATION WITH ABERRANT CONDUCTION OR VENTRICULAR PREMATURE COMPLEXES NONSPECIFIC T-WAVE ABNORMALITY ABNORMAL RHYTHM ECG No previous ECG available for comparison Electronically Signed On 05-23-2025 16:34:04 CDT by Peter Obregon M.D.
[2025-05-23 16:04] LABS: Hematocrit 47.3 % (42.0-52.0); Hemoglobin 16.0 g/dL (14.0-18.0); Immature Granulocyte Percent A 0.7 % (0-0.5); Lymphocytes Absolute Auto 2.20 K/mm3 (0.9-3.2); Mean Corpuscular HGB Conc 33.8 g/dl (32-36); Mean Corpuscular Hemoglobin 30.5 pg (26-34); Mean Corpuscular Volume 90.3 fl (80-100); Nucleated Red Blood Cells Absolute Auto 0.000 K/mm3 (0.0-0.012); Nucleated Red Blood Cells Perc 0.0 % (0.0-0.2); Platelet Count Result 245 k/mm3 (150-375); Red Blood Count 5.24 M/mm3 (4.6-6.20); White Blood Count 8.8 K/mm3 (4.5-10.0)
[2025-05-23 16:10] LABS: Alanine Aminotransferase 34 U/L (6-50); Albumin Level 3.9 g/dL (3.5-5.1); Alkaline Phosphatase 95 U/L (38-126); Anion Gap 8 mmol/L (4-12); Aspartate Amino Transferase 42 U/L (17-59); Bilirubin,Total 1.5 mg/dL (0.2-1.3); Blood Urea Nitrogen 9 mg/dL (9-20); Calcium 8.4 mg/dL (8.4-10.2); Carbon Dioxide 23 mmol/L (22-30); Chloride 96 mmol/L (98-107); Estimated CRCL calculation 155 ml/min; Estimated Glomerular Filt Rate > 60; Glucose 92 mg/dL (65-110); Potassium 3.9 mmol/L (3.4-5.0); Sodium 127 mmol/L (137-145); Total Protein 6.6 g/dL (6.3-8.2)
--- NOTE | 2025-05-23 16:13 | PC.NURSE ---
called lab to add on Trop I
--- NOTE | 2025-05-23 16:24 | ED_ITS ---
HPI - General Adult General Chief complaint: Shortness of Breath/Dyspnea Stated complaint: HEMOPTYSIS Time Seen by Provider: 05/23/25 15:36 History of Present Illness HPI narrative: Devin Smith is a 65-year-old male who reports of having pneumonia in January that he feels like never got cleared he had some testing done and he was diagnosed with COPD and does continue to have shortness of breath had a CT done and found out yesterday that he has left upper lobe lung cancer. He states that since January he has continued to have constant mucus productive cough, however today he started to cough up blood and felt like he could not clear from his chest and was feeling more short of breath. He denies any chest pain. Related Data Home Medications ?Medication ?Instructions ?Recorded ?Confirmed ?Last Taken ?Type Adults Multivitamin 1 tab-cap PO DAILY 03/16/22 05/22/25 03/23/22 History Glucosamine Chondroitin 2 tab-cap PO DAILY 03/16/22 05/22/25 03/23/22 History aspirin 81 mg tablet,delayed 81 mg PO DAILY 11/01/22 0 05/22/25 Unknown History release (Adult Low Dose Aspirin) Allergies Allergy/AdvReac Type Severity Reaction Status Date / Time No Known Allergies Allergy Verified 05/23/25 15:35 Review of Systems 2 Review of Systems: All systems reviewed & are unremarkable except as noted in HPI and below PMFSH Past Medical History Medical History Smoking Left popliteal artery occlusion Morbid obesity with BMI of 40.0-44.9, adult BPH loc w urin obs/LUTS Chronic atrial fibrillation Essential hypertension Mixed hyperlipidemia Nonrheumatic aortic valve insufficiency LÓPEZ (obstructive sleep apnea) Surgical History Surgical History H/O varicose vein stripping right History of oral cancer Family History Family History Father Hypertension Malignant neoplasm of prostate Family history of lung cancer Mother Hypertension Sibling Malignant neoplasm of prostate Social History Social History Smoking packs per day: 1 Smoking cigarettes per day: 20.0 Years smoked: 40 Smoking pack-years: 40.00 Smoking status: Current every day smoker Tobacco type: cigarettes Second hand tobacco smoke exposure: No Alcohol intake: current Drinks per week: 0 Alcohol use details: rare Substance use: never Substance use type: does not use Do You Feel Safe in your Home?: Yes Lack of Transportation: No Lack of Food: Never True Current Housing: I Have Housing Concerned About Future Housing: No Difficulty Paying Gas/Electric Bills: No Difficulty Paying for Meds: No Currently Unemployed: No Education: Bachelor's Degree Living arrangements: alone Occupation/Education: retired Gender identity (if verbalized by the patient): Male Sexual Orientation (if Verbalized by the Patient): Straight or Heterosexual Spiritual care concerns: No Exam 2 Narrative: GENERAL: no acute distress. HEAD: Normocephalic, atraumatic. EYES: PERRLA and EOMI. ENT: Nares clear, no rhinorrhea or epistaxis. Mucous membranes moist. Oropharynx without tonsillar hypertrophy exudate or other lesions. NECK: Supple. No adenopathy or masses. CHEST: Clear with Mild inspiratory wheezes, diminished in the bases HEART: Regular rate and rhythm. No murmur heard. Normal peripheral pulses. ABDOMEN: Soft, nontender, nondistended, normal active bowel sounds. EXTREMITIES: Normal range of motion. SKIN: Warm, dry, no rash. NEURO: No focal deficits. Alert and oriented x3. PSYCH: Normal mood and affect. Course Vital Signs Vital signs: Vital Signs Temperature 36.4 C 05/23/25 15:25 Pulse Rate 78 05/23/25 15:25 Respiratory Rate 24 H 05/23/25 15:25 Blood Pressure 95/58 L 05/23/25 15:25 Pulse Oximetry 96 05/23/25 15:25 Oxygen Delivery Room Air 05/23/25 15:25 Temperature 36.4 C 05/23/25 15:25 Pulse Rate 71 05/23/25 18:38 Respiratory Rate 12 05/23/25 18:38 Blood Pressure 109/60 05/23/25 18:38 Pulse Oximetry 99 05/23/25 18:38 Oxygen Delivery Room Air 05/23/25 15:36 Medical Decision Making [facility] Narrative Medical decision making narrative: 65-year-old male who presents with increased shortness of breath and hemoptysis that started today. It sounds like he has been struggling with shortness of breath since 2 we had pneumonia on the new diagnosis of COPD and then yesterday was diagnosed with left upper lobe lung cancer. He states today he started to cough up some blood and was going to try to lay down and rest and then he started coughing up more did not feel like he could clear his airway and he still feels like every time he goes to cough he is having a difficulty time bringing up completely. Denies chest pain / denies abdominal pain/ no recent fever/chills Concern for pulmonary embolism / pleural effusion/ pneumonia/ cardiac ischemia CBC-no leukocytosis, hemodynamically stable, CMP noted to have sodium 127, bilirubin 1.5 1st troponin negative, BNP 807 Chest x-ray: Cardiomegaly with mild interstitial edema. CT PE protocol: 1. Negative for pulmonary embolism. Large area of abnormal density within the left lower which may reflect a large infiltrate with associated lymphadenopathy however there are no significant air bronchograms and the possibility of an obstructing endobronchial lesion should be considered. Metastases are not excluded. Bronchoscopy is suggested Called the hospitalst for admission based on pts findings and symptoms, she asked that I consult pulmonolgy first. [address] Krishna, regarding patient's hemoptysis and CT scan of his chest. He does recommend admission he will see him tomorrow, recommends starting antibiotics ceftriaxone, azithromycin, Flagyl and treated with Solu-Medrol 40 mg Q 6, DuoNebs q.4 and guaifenesin 1200 b.i.d. He will evaluate if he can do a bronch and biopsy tomorrow or the possibility of doing it Tuesday, however if he has acute infection or acute COPD exacerbation it may need to be pushed back. Lee updated on this plan and is relived to stay for further monitoring and care. Medical Records Medical records reviewed: Yes I reviewed the external patient's medical records. Vital Signs Vital Signs: Vital Signs Temperature 36.4 C 05/23/25 15:25 Pulse Rate 78 05/23/25 15:25 Respiratory Rate 24 H 05/23/25 15:25 Blood Pressure 95/58 L 05/23/25 15:25 Pulse Oximetry 96 05/23/25 15:25 Oxygen Delivery Room Air 05/23/25 15:25 Temperature 36.4 C 05/23/25 15:25 Pulse Rate 71 05/23/25 18:38 Respiratory Rate 12 05/23/25 18:38 Blood Pressure 109/60 05/23/25 18:38 Pulse Oximetry 99 05/23/25 18:38 Oxygen Delivery Room Air 05/23/25 15:36 vitals reviewed Lab Data Lab results reviewed: Yes I reviewed the patient's lab results. 05/23/25 15:54 05/23/25 15:54 Labs: Lab Results 05/23/25 05/23/25 Range/Units 15:53 15:54 WBC 8.8 (4.5-10.0) K/mm3 RBC 5.24 (4.6-6.20) M/mm3 Hgb 16.0 (14.0-18.0) g/dL Hct 47.3 (42.0-52.0) % MCV 90.3 (80-100) fl MCH 30.5 (26-34) pg MCHC 33.8 (32-36) g/dl RDW 13.5 (11.5-14.5) % Plt Count 245 (150-375) k/mm3 MPV 9.3 (7.4-10.4) fl Immature Gran % (Auto) 0.7 H (0-0.5) % Neut % (Auto) 61.8 (45.5-73.1) % Lymph % (Auto) 25.0 (18.3-44.2) % [place] % (Auto) 10.6 H (2.6-8.5) % Eos % (Auto) 1.2 (0-4.4) % Baso % (Auto) 0.7 (0.2-1.2) % Lymph # (Auto) 2.20 (0.9-3.2) K/mm3 [place] # (Auto) 0.9 H (0.1-0.6) K/mm3 Eos # (Auto) 0.1 (0-0.3) K/mm3 Baso # (Auto) 0.1 (0.0-0.1) K/mm3 Abs Immat Gran (auto) 0.06 H (0.00-0.031) K/mm3 Absolute Neuts (auto) 5.5 (1.3-6.7) K/mm3 Absolute Nucleated RBC 0.000 (0.0-0.012) K/mm3 Nucleated RBC % 0.0 (0.0-0.2) % Sodium 127 L (137-145) mmol/L Potassium 3.9 (3.4-5.0) mmol/L Chloride 96 L (98-107) mmol/L Carbon Dioxide 23 (22-30) mmol/L Anion Gap 8 (4-12) mmol/L BUN 9 (9-20) mg/dL Creatinine 0.65 L (0.7-1.3) mg/dL Estim Creat Clear Calc 155 ml/min Estimated GFR > 60 (59 - ) Glucose 92 (65-110) mg/dL Calcium 8.4 (8.4-10.2) mg/dL Total Bilirubin 1.5 H (0.2-1.3) mg/dL AST 42 (17-59) U/L ALT 34 (6-50) U/L Alkaline Phosphatase 95 (38-126) U/L Troponin I < 0.012 (0.000-0.034) ng/mL NT-Pro-B Natriuret Pep 807 H (19.9-100) pg/mL Total Protein 6.6 (6.3-8.2) g/dL Albumin 3.9 (3.5-5.1) g/dL Imaging Data Radiologist's impression: Impressions Chest X-Ray 05/23/25 16:20 Impression: 1: Cardiomegaly with mild interstitial edema. Chest CTA 05/23/25 17:05 IMPRESSION: 1. Negative for pulmonary embolism. Large area of abnormal density within the left lower which may reflect a large infiltrate with associated lymphadenopathy however there are no significant air bronchograms and the possibility of an obstructing endobronchial lesion should be considered. Metastases are not excluded. Bronchoscopy is suggested Discharge Plan Discharge Clinical Impression: Hemoptysis, Lung mass, Dyspnea Patient Disposition: Still a Patient Condition: Serious
[2025-05-23 16:32] LABS: Troponin I < 0.012 ng/mL (0.000-0.034)
[2025-05-23 16:52] LABS: NT Pro B Type Natriuretic Pept 807 pg/mL (19.9-100)
--- NOTE | 2025-05-23 17:16 | PC.NURSE ---
Pt wheeled back to rm 22 by satellite instruction facilitator, pt requesting to stay in wheelchair for comfort. Pt states sob and coughing is improved when sitting up in chair compared to bed. pt continues to be on cardiac rn and call light within reach.
--- OUTSIDE RECORDS SUMMARY | 2025-05-23 17:42 | XMS_ITS | Encounter Summary ---
Author Organization [facility] Healthcare Address [address] [place] [address] Care Team Providers Care Sulfur Chloride Operator Name Role Phone Kb Elkins MD Primary Care Provider Durga Pinzon MD Unavailable [phone] Reason for Referral * MRI/CAT/PET Scan (Routine) - Closed Specialty Diagnoses / Procedures Referred By Contac t Referred To Contact Radiology Procedures CT Chest W WO Contrast Michael Dean MD [address] [place] [address] Phone: tel: Referral ID Status Reason Start Date Expiration Date Visits Re quested Visits Authorized [id number] Closed 05/22/2025 06/21/2026 1 1 Encounter Details Date Type Department Care Team (Late st Contact Info) Description 05/22/2025 Orders Only [facility] Medical Group Cardiology [address] [facility] [address] [place] [address] Michael Dean MD [address] [place] [address] Social History Tobacco Use Types Packs/Day [...] on file 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 Identity Male 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 Sexual Orientation Straight 06/25/2023 10 :11 AM CDT documented as of this encounter Plan of Treatment Not on file documented as of this encounter Procedures Procedure Name Priority Date/Time Associated Diagnosis Comments CT CHEST W WO CONTRAST Schedule Routine, Read Routine (OP Routine) 05/14/2025 10:26 AM CDT documented in this encounter Results * CT Chest W WO Contrast (05/14/2025 10:26 AM CDT) Anatomical Region Laterality Modality Body N/A Computed Tomogra phy us Historical Provider MD DICK CT PROCEDURES Final R esult documented in this encounter Visit Diagnoses Not on filedocumented in this encounter Care Teams Sulfur Chloride Operator Relationship Specialty Start Date End Date Kb Elkins MD [address] [facility] [address] [place] [address] PCP - General Family Medicine 10/21/22 Durga Pinzon MD [address] [facility] [address] [facility] [address] [place] [address] Surgeon Vascular Surgery 11/11/22 documented as of this encounter
--- OUTSIDE RECORDS SUMMARY | 2025-05-23 17:42 | XMS_ITS | Encounter Summary ---
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 * Telephone Encounter - Aleshia Kimball JEFFRY - 05/23/2025 10:05 AM CDT Made several attempts to contact patient without success. Per Dr. Marcial: For follow-up of mildly enlarged aortic root to 4.2 cm on recent echo, patient had CTA of the chestwith and without contrast performed 05/14/2025 with a lead imaging. Report of CT indicates that there appears to be a left hilar mass that extends into the distal left mainstem bronchus. This is concerning for primary bronchogenic carcinoma. There is associated complete collapse of the left lower lobe. Recommend further evaluation with bronchoscopy. There are multiple enlarged mediastinal and bilateral hilar lymph nodes, likely representing metastatic lymphadenopathy. PET/CT scan may provide additional information. There is a nonaneurysmal thoracic aorta. Dr. Marcial called the office of his PCP Dr. Kb Elkins and spoke with EDMUNDO Parra who has beenfollowing the patient in the office. Aida reported that the patient has upcoming pulmonary and oncology referral for consideration of bronchoscopy and biopsy. Dr. Marcial unsuccessfully attempted to call the patient today 05/22/2025 at 2:30 p.m. to inform himabout his abnormal CT results, with guidance to go to the emergency department per voicemail if he is having significant shortness of breath or ill health. [facility] Cardiology office will continue to attempt to contact the patient to remind the patient of the importance of promptly keeping his pulmonaryand oncology referrals for abnormal CT results with left lung mass, with plan for evaluation/referrals as per the office of his PCP. He should be instructed that if he has chest pain, worsening breathing, dizziness, or other significant symptoms, he should go immediately to the emergency departmentas he has collapse of his left lower lobe, with associated diminished respiratory capacity. ----- Message ----- From: Aleshia Kimball MA Sent: 05/22/2025 10:50 AM CDT To: Giorgio Marcial MD Subject: Edit The scan below was edited by Aleshia Kimball MA on 05/22/2025 at 10:50; it is attached tothe following: the 05/14/2025 CT Chest W WO Contrast [[id number]] documented in this encounter Plan of Treatment Not on file documented as of this encounter Visit Diagnoses Not on filedocumented in this encounter Care Teams Horticultural Agent Relationship Specialty Start Date End Date Kb Elkins MD [address] [place] [address] PCP - General Family Medicine 10/21/22 Durga Pinzon MD [address] [facility] [address] [facility] [address] [place] [address] Surgeon Vascular Surgery 11/11/22 documented as of this encounter
--- OUTSIDE RECORDS SUMMARY | 2025-05-23 17:42 | XMS_ITS | Clinical Summary ---
Author Organization [facility] Address [address] [place] [address] Care Team Providers Care Entry Tech Name Role Phone Kb Elkins MD Primary Care Provider Durga Pinzon MD Unavailable [phone] Allergies No known active allergies Medications amLODIPine-benaz [...] Active Problems Problem Noted Date Diagnosed Date Benign localized prostatic h yperplasia with lower urinary tract symptoms (LUTS) 05/22/2025 Cough 05/22/2025 IFG (impaired fasting glucose) 05/22/2025 Sinus infection 05/22/2025 Nonrheumatic aortic valve insufficiency 05/22/20 Mixed hyperlipidemia 05/22/2025 PAD (peripheral artery disease) 05/22/2025 Chronic atrial fibrillation 05/22/2025 LÓPEZ (obstructive sleep apnea) 05/22/2025 Peripheral arterial disease 08/17/2024 Pulmonary hypertension 07/08/2023 Morbid (severe) obesity due to excess calories 1 09/07/2022 Body mass index 40.0-44.9, adult ([facility]) 07/08 Ischemic leg 10/21/2022 Assessment & Plan [...] duplex. Assessment & Plan (10/21/2022 2:25 PM IT TECHNICAL ARCHITECT): Patient's clinical presentation and known past medical [...] (10/22/2022): Added automatically from request for surgery [id number] Assessment & Plan (07/22/2024 2:06 PM IT TECHNICAL ARCHITECT): Patient continues to do well no recurrent [...] 04/28/2016 Assessment & Plan (10/21/2022 2:25 PM IT TECHNICAL ARCHITECT): Admitted to the hospital started on therapeutic heparin drip. Consult cardiology for evaluation. Tobacco dependence syndrome 04/02/2016 Sleep apnea 03/29/2016 Essential hypertension 02/02/2016 Assessment & Plan (07/22/2024 2:06 PM IT TECHNICAL ARCHITECT): Hypertension chronic controlled. Continue current medical management. Assessment & Plan (10/21/2022 2:25 PM IT TECHNICAL ARCHITECT): Hypertension chronic and controlled. Continue Lotrel. 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 Continue current medical management. [...] Encounters Date Type Department Care Team Description 05/23/2025 Telephone [facility] Cardiology [address] [place] [phone] Bakari Machado MD 05/23/2025 Imaging Exam [facility] Cardiology [address] [place] [phone] Bakari Machado MD 05/22/2025 Orders Only [facility] Cardiology [address] [place] [phone] Michael Dean MD 05/08/2025 Orders Only [facility] Cardiology [address] [place] [phone] Bakari Machado MD 04/30/2025 Results Follow-Up [facility] Cardiology [address] [place] [phone] Aleshia Kimball MA Transthoracic Echo (TTE) Complete W Doppler/CF 04/25/2025 8:50 AM CDT - 04/25/2025 11:59 PM CDT Hospital Encounter [facility] OP Cardiac Testing [address] [place] [address] Essential hypertension; Persistent atrial fibrillation (HCC); Ischemic leg; Aortic valve insufficiency, etiology of cardiac valve disease unspecified; Pulmonary hypertension (HCC); Peripheral arterial disease; Other hyperlipidemia; Popliteal artery occlusion, left; Tobacco dependence syndrome; Obstructive sleep apnea syndrome; Body mass index 40.0-44.9, adult ([facility]) (HCC) Discharge Disposition: Discharge to home or self care 04/10/2025 Telephone [facility] Cardiology [address] [place] [address] [phone] Bakari Machado MD 03/27/2025 Telephone [facility] Cardiology [address] [place] [address] [address] Bakari Machado MD 03/26/2025 Telephone [facility] Cardiology [address] [place] [address] [phone] Bakari Machado MD 03/25/2025 Telephone [facility] Cardiology [address] [place] [address] [address] Bakair Machado MD 03/25/2025 Telephone [facility] Cardiology [address] [place] [address] [phone] Bakari Machado MD 03/22/2025 9:00 AM CDT Office Visit [facility] Cardiology [address] [place] [address] [phone] Bakari Machado MD Essential hypertension (Primary Dx); Persistent atrial fibrillation (HCC); Ischemic leg; Aortic valve insufficiency, etiology of cardiac valve disease unspecified; Pulmonary hypertension (HCC); Peripheral arterial disease; Other hyperlipidemia; Popliteal artery occlusion, left; Tobacco dependence syndrome; Obstructive sleep apnea syndrome; Body mass index 40.0-44.9, adult ([facility]) ([facility]) from Last 3 Months Immunizations Immunization Administration Dates Next Due Influenza, Quadrivalent, Spl it, Preservative Free, Intramuscular 04/29/2017 Influenza, Unspecified 06/21/2022,06/17/2016 Pfizer SARS-CoV-2 Monovalent Vaccination (12+ Yrs) PURPLE 12/09/2021,06/11/2021 Pneumococcal Polysaccharide PPV23 06/17/2016 Surgical History Surgery Date Site/Laterality Comments VARICOSE VEIN SURGERY Right Stripping THROMBECTOMY 10/25/2022 Left LLE angiogram. Mech- thromb LT pop, TPT, & post-tib arteries. [...] on file Legal Sex Male 8:44 PM IT TECHNICAL ARCHITECT Gender Identity Male 10/27/2022 11:55 AM IT TECHNICAL ARCHITECT Sexual Orientation Straight 06/25/2023 10 :11 AM CDT Obstetrics History Last Filed Vital Signs Vital Sign Reading Time Taken Comments Blood Pressure 110/52 03/22/2025 8:55 AM CDT Pulse 82 03/22/2025 8:55 AM CDT Temperature 36.2 C (97.2 F) 10/26/2022 12:06 PM IT TECHNICAL ARCHITECT Respiratory Rate 16 10/26/2022 12:06 PM IT TECHNICAL ARCHITECT Oxygen Saturation 95% 03/22/2025 8:55 AM CDT [...] Additional history exists Influenza Vaccine (#1) 2025 , 05/13/2020, 04/25/2019, Additional history exists Medical Devices Implanted Type [employer] Executive Director Device Identifier Shelf Expiration Date Model / Serial / Lot [employer] Device Clsr Perclose Prostyle Sut-Mediatd Closure-Repair Sys [id number] - [id number] Implanted:Qty: 1 on 10/25/2022 by Durga Pinzon MD at [facility] Right: Leg [employer] 05/28/2024 [id number] / / [id number] [employer] Viabahn 6mm 6fr 5cm 120cm Delivery System Superficial Femoral [id number] - [id number] Implanted:Qty: 1 on 10/25/2022 by Durga Pinzon MD at [facility] Right: Leg [employer] [id number] / / Procedures Procedure Name Priority Date/Time Associated Diagnosis Comments CT CHEST W WO CONTRAST Schedule Routine, Read Routine (OP Routine) 05/14/2025 10:26 AM CDT MAGNESIUM Routine 05/08/2025 10:09 AM [...] syndrome from Last 3 Months Results * CT Chest W WO Contrast (05/14/2025 10:26 AM CDT) Anatomical Region Laterality Modality Body N/A Computed Tomogra phy Historical Provider IMG CT PROCEDURES Final R esult * Thyroid Function [place] (05/08/2025 10:09 AM CDT) Pathologist [facility] TSH 0.58 0.40 - 4.50 mIU/L [facility] 05/08/2025 10:0 9 AM CDT 05/08/2025 10:14 AM CDT Narrative [facility] - 05/09/2025 5:35 AM CDT FASTING:YES FASTING: YES Bakari Machado MD LAB BLOOD ORDERABLES Final Result [facility] [address] [place] [address] * (ABNORMAL) CBC with auto differential (05/08/2025 [...] LAB BLOOD ORDERABLES Final Result [facility] [address] [address] * Magnesium (05/08/2025 10:09 AM CDT) Magnesium 1.9 1.5 - 2.5 mg/dL [facility] 05/08/2025 10:0 9 AM CDT 05/08/2025 10:14 AM CDT Narrative [facility] - 05/09/2025 5:35 AM CDT FASTING:YES FASTING: YES Bakari Machado MD LAB BLOOD ORDERABLES Final Result [facility] [address] [address] * Lipid panel (05/08/2025 10:09 AM CDT) [...] factors. LDL-C is now calculated using the Johnathan-Gogo calculation, which is a validated novel method providing better accuracy than the Friedewald equation in the estimation of LDL-C. Johnathan SS et al. KATALINA. 2013;310(19): 0856-6892 (http://education.f-star [employer].MOD Systems/faq/LBX982) Chol/HDL ratio 2.7 <5.0 (calc) [facility] [...] Machado MD LAB BLOOD ORDERABLES Final Result MIRANDA [facility] [address] [address] * TRANSTHORACIC ECHO (TTE) COMPLETE W DOPPLER/CF WO CONTRAST (04/25/2025 9:44 AM CDT) Anatomical Region Laterality Modality Ultrasound 04/25/2025 8:59 AM CDT Narrative 04/27/2025 4:33 PM CDT Transthoracic Echocardiographic Report Patient Name: GREGG RECIO W : 1960 (65y 2m) Sex: M Study Date: 04/25/2025 08:59:53 AM Ht(Inch): 76 Wt(Lb): 333 BSA: 2.85 Inker And Opaquer: Iris Love RDCS Order Provider: BAKARI MACHADO Heart Rate: 86 BMI: 40.53 BP: 110/52 Ref Provider: BAKARI MACHADO PROCEDURES: Echocardiographic Report: ([id number]) Transthoracic complete echo, 2D, spectral and tissue Doppler, color flow Doppler, M-mode. INDICATIONS: I10 Essential (primary) hypertension, I48.19 Other persistent atrial fibrillation, I99.8 Other disorder of circulatory system, I35.1 Nonrheumatic aortic (valve) insufficiency, I27.20 Pulmonary hypertension, unspecified, I73.9 Peripheral vascular disease, unspecified, E78.49 Other hyperlipidemia, I70.202 Unspecified atherosclerosis of [place] arteries of extremities, left leg, F17.200 Nicotine [...] and mildly elevated peak velocity There is blwg-yg-vnatrijz AI Aortic root is 4.2 cm. Ascending [...] and mildly elevated peak velocity There is ohai-iw-pujveltg AI Aortic root is 4.2 cm. Ascending [...] Asc Ao Index 1.41 cm/m2 AI Decel [place] 2.06 m/s2 AI PHT 558.00 ms MV [...] AM Ht(Inch): 76 Wt(Lb): 333 BSA: 2.85 Inker And Opaquer: Iris Love LYLE Order Provider: BAKARI MACHADO Heart Rate: 86 BMI: 40.53 BP: 110/52 Ref Provider: BAKARI MACHADO PROCEDURES: Echocardiographic Report: ([id number]) Transthoracic complete echo, 2D,spectral and tissue Doppler, color flow Doppler, M-mode. INDICATIONS: I10 Essential (primary) hypertension, I48.19 Other persistent atrialfibrillation, I99.8 Other disorder of circulatory system, I35.1 Nonrheumatic aortic (valve)insufficiency, I27.20 Pulmonary hypertension, unspecified, I73.9 Peripheral vasculardisease, unspecified, E78.49 Other hyperlipidemia, I70.202 Unspecifiedatherosclerosis of [place] arteries of extremities, left leg, F17.200 Nicotine [...] sclerosis and mildly elevated peakvelocity There is hyzo-mz-enmwpbex AI Aortic root is 4.2 cm. Ascending [...] sclerosis and mildly elevated peakvelocity There is uxgs-zt-vqfdwxhq AI Aortic root is 4.2 cm. Ascending [...] cm LA Length 2C 7.36 cm SV GIYV672.00 cm3 LA Length 4C 7.22 cm CARROL [...] Ao Diam 2D 4.00 cm AI Decel Lhub303.00 sec Asc Ao Index 1.41 cm/m2 AI [...] Jona Haley MD 04/27/2025 4:32:39 PM CDT Bakari Machado MD CV ECHO PROCEDURES Final R esult * ECG 12 lead (03/22/2025 8:59 AM CDT) Bakari Machado MD ECG ORDERABLES Final Resu lt from Last 3 Months [place] For more information, please contact: [phone] Documents on File Type Date Recorded Patient Eyedotter Expl anation ADVANCE DIRECTIVE 03/29/2016 12:00 AM POWER OF MEAL ROOM HAND FINANCIAL/MEDICAL * Full Code (Latest Code Status on File) Date Activated Date Inactivated Comments 10/21/2022 2:33 PM 10/26/2022 7:35 PM Care Teams Entry Tech Relationship Specialty Start Date End Date Kb Elkins MD [address] [address] PCP - General Family Medicine 10/21/22 Durga Pinzon MD [address] [facility] [address] [place] [address] Surgeon Vascular Surgery 11/11/22
--- OUTSIDE RECORDS SUMMARY | 2025-05-23 17:42 | XMS_ITS | Encounter Summary ---
Author Organization [facility] Healthcare Address [address] [place] [address] Care Team Providers Care Ships Or Barges Loader Name Role Phone Kb Elkins MD Primary Care Provider Durga Pinzon MD Unavailable [phone] Encounter Details Date Type Department Care Team (Late st Contact Info) Description 03/26/2025 Telephone [facility] Medical Group Cardiology [address] [facility] [address] [address] Giorgio Marcial MD [address] [place] [address] Social History Tobacco Use Types Packs/Day [...] on file Legal Sex Male 8:44 PM PATTERNATOR Gender Identity Male 10/27/2022 11:55 AM PATTERNATOR Sexual Orientation Straight 06/25/2023 10 :11 AM CDT documented as of this encounter Plan of Treatment Not on file documented as of this encounter Visit Diagnoses Not on filedocumented in this encounter Care Teams Ships Or Barges Loader Relationship Specialty Start Date End Date Kb Elkins MD [address] [place] [address] PCP - General Family Medicine 10/21/22 Durga Pinzon MD [address] [facility] [address] [facility] [address] [place] [address] Surgeon Vascular Surgery 11/11/22 documented as of this encounter
--- OUTSIDE RECORDS SUMMARY | 2025-05-23 17:42 | XMS_ITS | Encounter Summary ---
Author Organization [facility] Healthcare Address [address] [place] [address] Care Team Providers Care Family Life Educator Name Role Phone Kb Elkins MD Primary Care Provider Durga Pinzon MD Unavailable [phone] Encounter Details Date Type Department Care Team (Late st Contact Info) Description 03/25/2025 Telephone [facility] Medical Group Cardiology [address] [facility] [address] [address] Giorgio Marcial MD [address] [place] [address] Social History Tobacco Use Types Packs/Day [...] on file Legal 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 Male 8:44 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 Gender Identity Male 10/27/2022 11:55 AM INSURANCE RATER Sexual Orientation Straight 06/25/2023 10 :11 AM CDT documented as of this encounter Plan of Treatment Not on file documented as of this encounter Visit Diagnoses Not on filedocumented in this encounter Care Teams Family Life Educator Relationship Specialty Start Date End Date Kb Elkins MD [address] [place] [address] PCP - General Family Medicine 10/21/22 Durga Pinzon MD [address] [facility] [address] [facility] [address] [place] [address] Surgeon Vascular Surgery 11/11/22 documented as of this encounter
--- OUTSIDE RECORDS SUMMARY | 2025-05-23 17:42 | XMS_ITS | Encounter Summary ---
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 Gender Identity Male 10/27/2022 11:55 AM CDL DEDICATED TRUCK DRIVER Sexual Orientation Straight 06/25/2023 10 :11 AM CDT documented as of this encounter Plan of Treatment Not on file documented as of this encounter Visit Diagnoses Not on filedocumented in this encounter Care Teams Automotive Finance Manager Relationship Specialty Start Date End Date Kb Elkins MD [address] [place] [address] PCP - General Family Medicine 10/21/22 Durga Pinzon MD [address] [facility] [address] [place] [address] Surgeon Vascular Surgery 11/11/22 documented as of this encounter
--- OUTSIDE RECORDS SUMMARY | 2025-05-23 17:42 | XMS_ITS | Encounter Summary ---
Author Organization [facility] Facility Care Team Providers Care Blueprint Developer Name Role Phone Isaac Welch Primary Care Provider [phone] Kb Elkins MD Primary Care Provider Durga Pinzon MD Unavailable [phone] Encounter Details Date Type Department Care Team (Latest Contact Info) Description 03/02/2016 Orders Only [facility]INCONV Provider, MD Michael [address] [place] [address] Social History Tobacco Use Types Packs/Day Years Used Date Smoking Tobacco: Never Assessed Sex and Gender Information Value Date Recorded Sex Assigned at Not on file Legal 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 Gender Identity Male 10/27/2022 11:55 AM DIESEL POWERPLANT MECHANIC Sexual Orientation Straight 06/25/2023 10 :11 AM [...] on filedocumented in this encounter Care Teams Blueprint Developer Relationship Specialty Start Date End Date Isaac Welch PA [address] [facility] [address] [place] [address] PCP - General Physician Bag Valver 10/12/22 10/20/22 Kb Elkins MD [address] [facility] [address] [place] [address] PCP - General Family Medicine 10/21/22 Durga Pinzon MD [address] [facility] [address] [facility] [address] [place] [address] Surgeon Vascular Surgery 11/11/22 documented as of this encounter
--- OUTSIDE RECORDS SUMMARY | 2025-05-23 17:42 | XMS_ITS ---
Author Organization [facility] Address [address] [place] [address] Care Team Providers Care Relationship Assoc Name Role Phone Kb Elkins MD Primary Care Provider Durga Pinzon MD Unavailable [phone] Active Problems Problem Noted Date Diagnosed Date Benign localized prostatic h yperplasia with lower urinary tract symptoms (LUTS) 05/22/2025 Cough 05/22/2025 IFG (impaired fasting glucose) 05/22/2025 Sinus infection 05/22/2025 Nonrheumatic aortic valve insufficiency 05/22/20 25 Mixed hyperlipidemia 05/22/2025 PAD (peripheral artery disease) [...] duplex. Assessment & Plan (10/21/2022 2:25 PM STERILE PROCESSING MANAGER): Patient's clinical presentation and known past medical [...] (10/22/2022): Added automatically from request for surgery [id number] Assessment & Plan (07/22/2024 2:06 PM STERILE PROCESSING MANAGER): Patient continues to do well no recurrent [...] 04/28/2016 Assessment & Plan (10/21/2022 2:25 PM STERILE PROCESSING MANAGER): Admitted to the hospital started on therapeutic heparin drip. Consult cardiology for evaluation. Tobacco dependence syndrome 04/02/2016 Sleep apnea 03/29/2016 Essential hypertension 02/02/2016 Assessment & Plan (07/22/2024 2:06 PM STERILE PROCESSING MANAGER): Hypertension chronic controlled. Continue current medical management. Assessment & Plan (10/21/2022 2:25 PM STERILE PROCESSING MANAGER): Hypertension chronic and controlled. Continue Lotrel. 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 Continue current medical management. [...]
--- OUTSIDE RECORDS SUMMARY | 2025-05-23 17:42 | XMS_ITS | Encounter Summary ---
Author Organization [facility] Facility Care Team Providers Care Sales Counselor Name Role Phone Isaac Welch Primary Care Provider [phone] Kb Elkins MD Primary Care Provider Durga Pinzon MD Unavailable [phone] Encounter Details Date Type Department Care Team (Latest Contact Info) Description 04/27/2016 Orders Only [facility] CLINCON[facility] ProviderMichael MD [address] [place] [address] Social History Tobacco Use Types Packs/Day Years Used Date Smoking Tobacco: Never Assessed Sex and Gender Information Value Date Recorded Sex Assigned at Not on file Legal Sex Male 8:44 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 Gender Identity Male 10/27/2022 11:55 AM FIELD ASSEMBLY SUPERVISOR Sexual Orientation Straight 06/25/2023 10 :11 AM [...] on filedocumented in this encounter Care Teams Sales Counselor Relationship Specialty Start Date End Date Isaac Welch PA [address] [facility] [address] [place] [address] PCP - General Physician Paper Reel Operator 10/12/22 10/20/22 Kb Elkins MD [address] [facility] [address] [place] [address] PCP - General Family Medicine 10/21/22 Durga Pinzon MD [address] [facility] [address] [facility] [address] [place] [address] Surgeon Vascular Surgery 11/11/22 documented as of this encounter
[2025-05-23] MEDS: IPRATROPIUM 0.5 MG/ALBUTEROL SULFATE 2.5 MG AMPUL.NEB 3 ML INHALATION ×3 (18:19)
[2025-05-23] MEDS: guaiFENesin 12 HR 600 MG TABCR 1200 MG PO (18:33)
[2025-05-23 19:39] LABS: Troponin I < 0.012 ng/mL (0.000-0.034)
--- NOTE | 2025-05-23 19:40 | PM.IMHP ---
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 Pt has a recent health hx of PNA in January of this year and it was persistent and would not resolve prompting PFT's performed last month and dx of COPD. The COPD has been treated with inhalers and despite the treatment the pt's symptoms persisted so his Auto Travel Counselor ordered a CT Scan yesterday that showed a concern for left upper lobe lung cancer. Patient's primary care provider was in the process of getting PET scan in follow-up scheduled as well as biopsy, but today he had Hemoptysis, worsening dyspnea and felt as though he could not catch his breath. It was made worse by laying down and with any exertion. He does not follow with a Oil Distributor regularly. He is a 40+ year pack smoker. In the ER the pt was evaluated and EKG showed A-fib 94 bpm, stable VS, and normal hemoglobin and hematocrit 16.0/47.3. No leukocytosis with white count 8.8. Platelets 245. Metabolic panel significant for the sodium of 127. This is a decrease compared to previous labs that were normal. He has normal troponin, actually elevated bilirubin at 1.5 and BNP of 807. Chest x-ray was performed that showed mild interstitial edema and CTA PE protocol shows no pulmonary embolism however there is enlarged abnormal density in the left lower lobe and bronchoscopy is suggested. ER pr spoke with pulmonology, Dr. Medina who agrees to follow and cover. Potential for bronchoscopy tomorrow after he evaluates the patient. He advised patient to continue Eliquis tonight, start Solu-Medrol 40 mg every 6 hours, DuoNeb q.4 hours p.r.n., give Rocephin and Flagyl and guaifenesin b.i.d.. Patient is being admitted in the current setting and will be evaluated by pulmonology tomorrow with potential for bronchoscopy with biopsy. Review of Systems Review of Systems: All systems reviewed & are unremarkable except as noted in HPI and below PMFSH Past Medical History Medical History (Updated 05/23/25 @ 20:37 by JARON Shirley) Nicotine abuse Hyponatremia Smoking Left popliteal artery occlusion Morbid obesity with BMI of 40.0-44.9, adult BPH loc w urin obs/LUTS Chronic atrial fibrillation Essential hypertension Mixed hyperlipidemia Nonrheumatic aortic valve insufficiency LÓPEZ (obstructive sleep apnea) Surgical History Surgical History H/O varicose vein stripping right History of oral cancer Family History Family History Father Hypertension Malignant neoplasm of prostate Family history of lung cancer Mother Hypertension Sibling Malignant neoplasm of prostate Social History Social History Smoking packs per day: 1 Smoking cigarettes per day: 20.0 Years smoked: 40 Smoking pack-years: 40.00 Smoking status: Current every day smoker Tobacco type: cigarettes Second hand tobacco smoke exposure: No Alcohol intake: current Drinks per week: 0 Alcohol use details: rare Substance use: never Substance use type: does not use Do You Feel Safe in your Home?: Yes Lack of Transportation: No Lack of Food: Never True Current Housing: I Have Housing Concerned About Future Housing: No Difficulty Paying Gas/Electric Bills: No Difficulty Paying for Meds: No Currently Unemployed: No Education: Bachelor's Degree Living arrangements: alone Occupation/Education: retired Gender identity (if verbalized by the patient): Male Sexual Orientation (if Verbalized by the Patient): Straight or Heterosexual Spiritual care concerns: No Meds Home Medications and Allergies Home Medications ?Medication ?Instructions ?Recorded ?Confirmed ?Type Adults Multivitamin 1 tab-cap PO DAILY 03/16/22 05/22/25 History Glucosamine Chondroitin 2 tab-cap PO DAILY 03/16/22 05/22/25 History aspirin 81 mg tablet,delayed 81 mg PO DAILY 11/01/22 05/22/25 History release (Adult Low Dose Aspirin) amlodipine 10 mg-benazepril 20 mg 1 cap PO DAILY #90 caps 08/27/24 05/22/25 Rx capsule (Lotrel) apixaban 5 mg tablet (Eliquis) 5 mg PO BID #180 tabs 08/27/24 05/22/25 Rx atorvastatin 40 mg tablet 40 mg PO HS #90 tabs 08/27/24 05/22/25 Rx hydralazine 50 mg tablet 50 mg PO TID #270 tabs 08/27/24 05/22/25 Rx isosorbide mononitrate 30 mg 30 mg PO DAILY #90 tabs 08/27/24 05/22/25 Rx tablet,extended release 24 hr metoprolol succinate 200 mg 200 mg PO DAILY #90 tabs 08/27/24 05/22/25 Rx tablet,extended release 24 hr omeprazole 20 mg capsule,delayed 20 mg PO DAILY #90 caps 08/27/24 05/22/25 Rx release tamsulosin 0.4 mg capsule 0.4 mg PO BID #180 caps 08/27/24 05/22/25 Rx halobetasol propionate 0.05 % 1 applic topical DAILY #15 grams 11/27/24 05/22/25 Rx topical cream fluticasone 500 mcg-salmeterol 50 1 inh inhalation Q12H #60 ea 05/07/25 05/22/25 Rx mcg/dose blistr powdr for inhalation (Advair Diskus) albuterol sulfate 90 mcg/actuation 1 inh inhalation Q4H PRN shortness 05/19/25 05/22/25 Rx aerosol inhaler (Ventolin HFA) of breath or wheezing #6.7 grams escitalopram oxalate 5 mg tablet 5 mg PO DAILY #30 tabs 05/22/25 05/22/25 Rx lorazepam 0.5 mg tablet 0.5 mg PO BID PRN anxiety #20 tabs 05/22/25 05/22/25 Rx roflumilast 250 mcg tablet 250 mcg PO DAILY 4 weeks #28 tabs 05/22/25 05/22/25 Rx Allergies Allergy/AdvReac Type Severity Reaction Status Date / Time No Known Allergies Allergy Verified 05/23/25 15:35 Vital Signs Vital Signs - 24 hr 05/23/25 15:25 05/23/25 15:36 05/23/25 15:46 Temperature 97.6 F Pulse Rate 78 81 Respiratory Rate 24 H 24 H Blood Pressure 95/58 L Pulse Oximetry 96 95 94 Oxygen Delivery Room Air Room Air 05/23/25 16:13 05/23/25 16:17 05/23/25 16:32 Temperature Pulse Rate 82 74 64 Respiratory Rate 16 20 22 H Blood Pressure 108/67 125/80 116/97 H Pulse Oximetry 97 95 93 Oxygen Delivery 05/23/25 16:47 05/23/25 17:15 05/23/25 17:17 Temperature Pulse Rate 73 80 71 Respiratory Rate 18 16 20 Blood Pressure 110/67 107/62 Pulse Oximetry 96 96 95 Oxygen Delivery 05/23/25 18:16 05/23/25 18:38 Temperature Pulse Rate 86 71 Respiratory Rate 22 H 12 Blood Pressure 109/60 Pulse Oximetry 99 Oxygen Delivery Exam Const: General: uncomfortable Other: Obese male pt sitting on stretcher at this time. He appears overall uncomfortable. HENMT: Mouth: Yes moist mucous membranes Eyes: General: appearance normal, both eyes and all related structures Neck: Neck: supple and no JVD Carotids: no bruits Lymphatic: lymphadenopathy not noted Chest: Other: Not tender to palpation Resp: Effort & Inspection: abnormal respiratory effort (Increased effort) Auscultation: rhonchi and wheezes Other: Abnormal lung sounds in all lobes with scattered rhonchi and wheezing, but decreased lung sounds KEIKO. Cardio: Rate: regular rate Rhythm: abnormal rhythm regularly irregular (Hx. A-fib) Heart sounds: no gallops, Murmur heart sound present and no rubs GI: Inspection: non-distended GI Palp: Yes Soft to palpation and No Tenderness to palpation present (GI) Auscultation: normal bowel sounds Skin: General skin exam: normal color, no rashes or lesions noted and no erythema Wounds: no wounds Neuro: Speech: normal speech Motor exam (neuro): 5/5 motor strength present throughout and Normal motor muscle tone present throughout Sensory Exam: normal sensation Extrem: General: normal to inspection, edema (trace BLE) and no pedal edema Psych: Mental Status: mental status grossly normal Affect: Anxious affect present H&P: Results Labs Labs: Short CBC 05/23/25 Range/Units 15:54 WBC 8.8 (4.5-10.0) K/mm3 Hgb 16.0 (14.0-18.0) g/dL Hct 47.3 (42.0-52.0) % Plt Count 245 (150-375) k/mm3 [facility] 05/23/25 15:54 Sodium 127 L Potassium 3.9 Chloride 96 L Carbon Dioxide 23 BUN 9 Creatinine 0.65 L Glucose 92 Calcium 8.4 Cardiac Enzymes 05/23/25 05/23/25 Range/Units 15:53 19:09 Troponin I < 0.012 < 0.012 (0.000-0.034) ng/mL Liver Function 05/23/25 Range/Units 15:54 Total Bilirubin 1.5 H (0.2-1.3) mg/dL AST 42 (17-59) U/L ALT 34 (6-50) U/L Alkaline Phosphatase 95 (38-126) U/L Albumin 3.9 (3.5-5.1) g/dL Assessment and Plan Assessment and plan (1) Lung mass: Code(s): R91.8 - Other nonspecific abnormal finding of lung field Status: Acute Assessment and Plan: Mass present in KEIKO Consult Pulmonology Potential Bronchoscopy w/Bx tomorrow, 05/24/[address] Medina NPO at [place]. Trend labs and VS. Orders per Dr. Medina include: Continue Eliquis, Solumedrol 40 mg Q6 hrs, Duoneb Q4 hrs prn, Rocephin 1G daily, Azithromycin 500 mg IVPB Q24 hrs, Flagyl 500 mg IVPB Q8 hrs, and Guaifenesin BID. Will await to consult Oncology at this time pending discussion with Dr. Medina and bx. Pt has voiced that if he has cancer he wants to be treated at [facility]. (2) COPD (chronic obstructive pulmonary disease): Qualifiers: COPD type: unspecified COPD Qualified Code(s): J44.9 - Chronic obstructive pulmonary disease, unspecified Code(s): J44.9 - Chronic obstructive pulmonary disease, unspecified Status: Chronic Assessment and Plan: See #1 Supplemental oxygen as needed. (3) Hyponatremia: Code(s): E87.1 - Hypo-osmolality and hyponatremia Status: Acute Assessment and Plan: Uncertain etiology. Possible causes SIADH, Electrolyte shift from Lung mass, Dehydration Collect urine and serum osmolalities Check urine sodium Normal renal function. Normal saline at 100 ml/hr ordered. Consider fluid restriction if worsening. Trend labs. (4) Chronic atrial fibrillation: Code(s): I48.20 - Chronic atrial fibrillation, unspecified Status: Chronic Assessment and Plan: Continue Eliquis therapy Telemetry (5) Mixed hyperlipidemia: Code(s): E78.2 - Mixed hyperlipidemia Status: Chronic Assessment and Plan: Heart Healthy diet w/NPO at [place]. Continue statin once confirmed. (6) Essential hypertension: Code(s): I10 - Essential (primary) hypertension Status: Chronic Assessment and Plan: BP currently stable w/SBP running low 100s-110/Diastolics of 60s Monitor and trend. Reorder home meds once they are confirmed and reviewed. (7) LÓPEZ (obstructive sleep apnea): Code(s): G47.33 - Obstructive sleep apnea (adult) (pediatric) Status: Chronic Assessment and Plan: Home CPAP therapy. (8) Nicotine abuse: Code(s): Z72.0 - Tobacco use Status: Chronic Assessment and Plan: 40+ Pack year smoker Nicotine patch daily. Counseled for the importance of smoking cessation in the current setting. Quality VTE Prophylaxis VTE prophylaxis: pharmacologic ordered Hospitalist MIPS Advance Care Plan I have confirmed that the patient's Advanced Care Plan is present, code status is documented, or surrogate decision maker is listed in patient medical record.: Yes Medication Reconciliation I have utilized all available resources to obtain, update and review the patients current medications (includes all prescriptions, OTC, herbals, cannabis, and nutritional supplements).: Yes
--- NOTE | 2025-05-23 20:42 | ADMGEN ---
This patient, Devin Smith, was admitted to 2 Medical Room 240-01 @1940. Patient/family oriented to hospital policies and general routines including ID bracelet, bed and alarms, visiting hours, pain management, procedures, bathroom and other care routines, personal items, smoking policy, room service/diet, and visiting hours. Information on how to activate the Rapid Response Team has been discussed. Patient/Family are encouraged to report perceived risks to care and to ask questions if they do not understand what they are told or what they should do.
[2025-05-23] MEDS: NICOTINE (*PBKC) 21 MG PATCH 1 PATCH TRANSDERM (22:03)
[2025-05-23] MEDS: APIXABAN 5 MG TABLET PO (22:04)
[2025-05-23] MEDS: ATORVASTATIN 40 MG TABLET PO (22:04)
[2025-05-23] MEDS: metroNIDAZOLE 500 MG/ISO 100ML 500 MG/100 ML BAG 100 MG IVPB (22:05)
[2025-05-23] MEDS: TAMSULOSIN HCL 0.4 MG CAPSULE PO (22:24)
[2025-05-23] MEDS: SALINE 0.65% NAS SOLN 44 ML BTL 1 SPRAY NASAL (22:24)
[2025-05-23 23:11] LABS: Troponin I < 0.012 ng/mL (0.000-0.034)
[2025-05-23] MEDS: AZITHROMYCIN IV 500 MG in SODIUM CHLORIDE 0.9% IV 250 ML IVPB (23:37)
[2025-05-23] MEDS: OXYMETAZOLINE HCL 0.05% NAS 15 ML BTL (*BKC) 1 SPRAY NASAL (23:42)
[2025-05-23] MEDS: FLUTICASONE/SALMETEROL 230-21 MCG INHALER 1 PUFF 2 PUFF INHALATION (23:58)
[2025-05-24] VITALS (21 sets, daily range): BP systolic 124–127; BP diastolic 58–69; PULSE 48–105; RESP 14–22; TEMP 36.4–36.6; O2SAT 96–97
[2025-05-24] MEDS: IPRATROPIUM 0.5 MG/ALBUTEROL SULFATE 2.5 MG AMPUL.NEB 3 ML INHALATION ×6 (00:03→23:36)
[2025-05-24] MEDS: cefTRIAXone 2 GM in SODIUM CHLORIDE 0.9% IV 100 ML 200 ML IVPB (00:36)
[2025-05-24] MEDS: LORazepam (*CRX) 0.5 MG TABLET PO (02:03)
[2025-05-24 05:05] LABS: Hematocrit 47.2 % (42.0-52.0); Hemoglobin 16.2 g/dL (14.0-18.0); Immature Granulocyte Percent A 1.1 % (0-0.5); Lymphocytes Absolute Auto 0.72 K/mm3 (0.9-3.2); Mean Corpuscular HGB Conc 34.3 g/dl (32-36); Mean Corpuscular Hemoglobin 30.8 pg (26-34); Mean Corpuscular Volume 89.7 fl (80-100); Nucleated Red Blood Cells Absolute Auto 0.000 K/mm3 (0.0-0.012); Nucleated Red Blood Cells Perc 0.0 % (0.0-0.2); Platelet Count Result 242 k/mm3 (150-375); Red Blood Count 5.26 M/mm3 (4.6-6.20); White Blood Count 6.2 K/mm3 (4.5-10.0)
[2025-05-24] MEDS: metroNIDAZOLE 500 MG/ISO 100ML 500 MG/100 ML BAG 100 MG IVPB ×3 (05:29→21:54)
[2025-05-24 05:30] LABS: Alanine Aminotransferase 33 U/L (6-50); Albumin Level 4.0 g/dL (3.5-5.1); Alkaline Phosphatase 91 U/L (38-126); Anion Gap 9 mmol/L (4-12); Aspartate Amino Transferase 42 U/L (17-59); Bilirubin,Total 1.5 mg/dL (0.2-1.3); Blood Urea Nitrogen 12 mg/dL (9-20); Calcium 8.8 mg/dL (8.4-10.2); Carbon Dioxide 21 mmol/L (22-30); Chloride 94 mmol/L (98-107); Estimated CRCL calculation 155 ml/min; Estimated Glomerular Filt Rate > 60; Glucose 135 mg/dL (65-110); Magnesium 1.8 mg/dL (1.6-2.3); Potassium 4.2 mmol/L (3.4-5.0); Sodium 124 mmol/L (137-145); Total Protein 6.7 g/dL (6.3-8.2)
--- NOTE | 2025-05-24 07:14 | P.PNIM_ITS ---
Progress Note: A&P Assessment and Plan (1) Lung mass: Code(s): R91.8 - Other nonspecific abnormal finding of lung field Status: Acute Assessment and Plan: * Chest CTA: Negative for pulmonary embolism. Large area of abnormal density within the left lower which may reflect a large infiltrate with associated lymphadenopathy however there are no significant air bronchograms and the possibility of an obstructing endobronchial lesion should be considered. Metastases are not excluded. Bronchoscopy is suggested * Mass present in KEIKO * NPO at NH. * Trend labs and VS. * Orders per Dr. Krishna include: Continue Eliquis, Solumedrol 40 mg Q6 hrs, Duoneb Q4 hrs prn, Rocephin 1G daily, Azithromycin 500 mg IVPB Q24 hrs, Flagyl 500 mg IVPB Q8 hrs, and Guaifenesin BID. * Will await to consult Oncology at this time pending discussion with Dr. Krishna and bx. Pt has voiced that if he has cancer he wants to be treated at [facility]. * Consult Pulmonology * Potential Bronchoscopy w/Bx today, 05/24/[address] Krishna (2) COPD (chronic obstructive pulmonary disease): Qualifiers: COPD type: unspecified COPD Qualified Code(s): J44.9 - Chronic obstructive pulmonary disease, unspecified Code(s): J44.9 - Chronic obstructive pulmonary disease, unspecified Status: Chronic Assessment and Plan: * See #1 * Supplemental oxygen as needed. (3) Hyponatremia: Code(s): E87.1 - Hypo-osmolality and hyponatremia Status: Acute Assessment and Plan: * Uncertain etiology. Possible causes SIADH, Electrolyte shift from Lung mass, Dehydration * Collect urine and serum osmolalities * Check urine sodium * Normal renal function. * Normal saline at 100 ml/hr ordered. * Consider fluid restriction if worsening. * Trend labs. * 05/24: Na 124 - Asymptomatic, continue to rehydrate, urine studies still pending. (4) Chronic atrial fibrillation: Code(s): I48.20 - Chronic atrial fibrillation, unspecified Status: Chronic Assessment and Plan: * Continue Eliquis therapy * Telemetry (5) Mixed hyperlipidemia: Code(s): E78.2 - Mixed hyperlipidemia Status: Chronic Assessment and Plan: * Heart Healthy diet w/NPO at NH. * Continue statin once confirmed. (6) Essential hypertension: Code(s): I10 - Essential (primary) hypertension Status: Chronic Assessment and Plan: * BP currently stable w/SBP running low 100s-110/Diastolics of 60s * Monitor and trend. * Reorder home meds once they are confirmed and reviewed. * 125/69 (7) LÓPEZ (obstructive sleep apnea): Code(s): G47.33 - Obstructive sleep apnea (adult) (pediatric) Status: Chronic Assessment and Plan: * Home CPAP therapy. (8) Nicotine abuse: Code(s): Z72.0 - Tobacco use Status: Chronic Assessment and Plan: * 40+ Pack year smoker * Nicotine patch daily. * Counseled for the importance of smoking cessation in the current setting. 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 05/24/2025 Patient sitting at bedside during examination. Denies any chest pain, shortness of breath at rest, n/v or abd pain. Still has cough with hemoptysis. Pulm consulted - plan for bronchoscopy today. Na down to 124 today. Review of Systems Review of Systems: All systems reviewed & are unremarkable except as noted in HPI and below Exam Const: General: uncomfortable Other: Obese male pt sitting on stretcher at this time. He appears overall uncomfortable. HENMT: Mouth: Yes moist mucous membranes Eyes: General: appearance normal, both eyes and all related structures Neck: Neck: supple and no JVD Carotids: no bruits Lymphatic: lymphadenopathy not noted Chest: Other: Not tender to palpation Resp: Effort & Inspection: abnormal respiratory effort (Increased effort) Auscultation: rhonchi and wheezes Other: Abnormal lung sounds in all lobes with scattered rhonchi and wheezing, but decreased lung sounds KEIKO. Cardio: Rate: regular rate Rhythm: abnormal rhythm regularly irregular (Hx. A-fib) Heart sounds: no gallops, Murmur heart sound present and no rubs GI: Inspection: non-distended Auscultation: normal bowel sounds Skin: General skin exam: normal color, no rashes or lesions noted and no erythema Wounds: no wounds Neuro: Speech: normal speech Motor exam (neuro): 5/5 motor strength present throughout and Normal motor muscle tone present throughout Sensory Exam: normal sensation Extrem: General: normal to inspection, edema (trace BLE) and no pedal edema Psych: Mental Status: mental status grossly normal Affect: Anxious affect present Objective Data Vital Signs Vital Signs: Vital Signs - 24 hr 05/23/25 15:25 05/23/25 15:36 05/23/25 15:46 Temperature 97.6 F Pulse Rate 78 81 Respiratory Rate 24 H 24 H Blood Pressure 95/58 L Pulse Oximetry 96 95 94 Oxygen Delivery Room Air Room Air 05/23/25 16:13 05/23/25 16:17 05/23/25 16:32 Temperature Pulse Rate 82 74 64 Respiratory Rate 16 20 22 H Blood Pressure 108/67 125/80 116/97 H Pulse Oximetry 97 95 93 Oxygen Delivery 05/23/25 16:47 05/23/25 17:15 05/23/25 17:17 Temperature Pulse Rate 73 80 71 Respiratory Rate 18 16 20 Blood Pressure 110/67 107/62 Pulse Oximetry 96 96 95 Oxygen Delivery 05/23/25 18:16 05/23/25 18:38 05/23/25 20:00 Temperature Pulse Rate 86 71 81 Respiratory Rate 22 H 12 Blood Pressure 109/60 Pulse Oximetry 99 Oxygen Delivery 05/23/25 20:56 05/23/25 22:30 05/23/25 23:45 Temperature 98.4 F Pulse Rate 84 Respiratory Rate 20 Blood Pressure 130/74 Pulse Oximetry 95 Oxygen Delivery Room Air CPAP 05/24/25 00:00 05/24/25 00:03 05/24/25 00:16 Temperature Pulse Rate 98 105 H 102 H Respiratory Rate 22 H 22 H Blood Pressure Pulse Oximetry Oxygen Delivery 05/24/25 04:00 05/24/25 04:10 05/24/25 04:37 Temperature 97.9 F Pulse Rate 93 48 L 88 Respiratory Rate 20 20 Blood Pressure 125/69 Pulse Oximetry 96 Oxygen Delivery 05/24/25 04:43 Temperature Pulse Rate 85 Respiratory Rate 20 Blood Pressure Pulse Oximetry Oxygen Delivery Intake/Output Intake/Output: Intake & Output 05/21/25 05/22/25 05/23/25 05/24/25 23:59 23:59 23:59 23:59 Intake Total 100 250 Balance 100 250 Meds/Results Medications: Active Medications Generic Name Dose Route Start Last Admin Trade Name Freq PRN Reason Stop Dose Admin Albuterol/Ipratropium 3 ml 05/23/25 18:00 05/24/25 04:37 Ipratropium 0.5 Mg/Albuterol Sulfate 2.5 Mg Ampul.Neb 3 Ml INHALATION 3 ml Q4-6H SONYA Administration Amlodipine Besylate 10 mg 05/24/25 09:00 Amlodipine Besylate 10 Mg Tablet PO DAILY SONYA Apixaban 5 mg 05/23/25 21:55 05/23/25 22:30 Apixaban 5 Mg Tablet PO Not Given Q12HR SONYA Atorvastatin Calcium 40 mg 05/23/25 21:45 05/23/25 22:04 Atorvastatin 40 Mg Tablet PO 40 mg HS SONYA Administration Escitalopram Oxalate 5 mg 05/24/25 09:00 Escitalopram Oxalate 5 Mg Tablet PO DAILY SONYA Guaifenesin 1,200 mg 05/23/25 21:00 05/23/25 21:46 Guaifenesin 12 Hr 600 Mg Tabcr PO Not Given Q12HR SONYA Hydralazine HCl 50 mg 05/23/25 22:00 05/24/25 05:29 Hydralazine Hcl 50 Mg Tablet PO 50 mg Q8HR SONYA Administration Metronidazole 500 mg in 100 mls @ 100 mls/hr 05/23/25 22:00 05/24/25 05:29 Flagyl 500 Mg/Iso Soln 100 Ml IVPB 100 mls/hr Q8H SONYA Administration Ceftriaxone Sodium 1 gm/ 50 mls @ 100 mls/hr 05/24/25 21:00 Sodium Chloride IVPB Q24H SONYA Azithromycin 500 mg/ Sodium 250 mls @ 250 mls/hr 05/23/25 23:00 05/24/25 00:51 Chloride IVPB Infused Q24H [facility] Infusion Isosorbide Mononitrate 30 mg 05/24/25 09:00 Isosorbide Mononitrate 30 Mg Tab.Er.24h PO DAILY SONYA Lisinopril 20 mg 05/24/25 09:00 Lisinopril 20 Mg Tablet PO QAM SONYA Lorazepam 0.5 mg 05/23/25 21:35 05/24/25 02:03 Lorazepam (*Crx) 0.5 Mg Tablet PO 0.5 mg BID PRN Administration Anxiety Methylprednisolone Sodium Succinate 40 mg 05/24/25 00:00 05/24/25 05:29 Methylprednisolone Sod Succ 40 Mg Vial IV PUSH 40 mg Q6HR SONYA Administration Metoprolol Succinate 200 mg 05/24/25 09:00 Metoprolol Succinate Ext Rel 100 Mg Tabcr PO DAILY SONYA Multivitamins Therapeutic 1 tablet 05/24/25 09:00 Multivitamins Therapeutic Tab (*Bkc) PO QAM SONYA Nicotine 1 patch 05/23/25 20:55 05/23/25 22:03 Nicotine (*Pbkc) 21 Mg Patch TRANSDERM 1 patch DAILY SONYA Administration Oxymetazoline HCl 1 spray 05/23/25 22:53 05/23/25 23:42 Oxymetazoline Hcl 0.05% Jewel 15 Ml Btl (*Bkc) NASAL 1 spray Q12HR PRN Administration Congestion Pantoprazole Sodium 40 mg 05/24/25 09:00 Pantoprazole 40 Mg Tablet PO QAM SONYA Roflumilast 250 mcg 05/24/25 09:00 Roflumilast 250 Mcg Tablet PO DAILY SONYA Fluticasone/Salmeterol 2 puff 05/23/25 23:40 05/23/25 23:58 Fluticasone/Salmeterol 230-21 Mcg Inhaler 1 Puff INHALATION 2 puff Q12HRT SONYA Administration Sodium Chloride 1 spray 05/23/25 21:38 05/23/25 22:24 Saline 0.65% Jewel Soln 44 Ml Btl NASAL 1 spray Q6HR PRN Administration Congestion Tamsulosin HCl 0.4 mg 05/23/25 21:50 05/23/25 22:24 Tamsulosin Hcl 0.4 Mg Capsule PO 0.4 mg Q12HR SONYA Administration Radiology Results: ITS Impressions Chest X-Ray 05/23/25 16:20 Impression: 1: Cardiomegaly with mild interstitial edema. Chest CTA 05/23/25 17:05 IMPRESSION: 1. Negative for pulmonary embolism. Large area of abnormal density within the left lower which may reflect a large infiltrate with associated lymphadenopathy however there are no significant air bronchograms and the possibility of an obstructing endobronchial lesion should be considered. Metastases are not excluded. Bronchoscopy is suggested Labs Labs: Laboratory Results - last 24 hr 05/23/25 05/23/25 05/23/25 15:53 15:54 19:09 WBC 8.8 RBC 5.24 Hgb 16.0 Hct 47.3 MCV 90.3 MCH 30.5 MCHC 33.8 RDW 13.5 Plt Count 245 MPV 9.3 Immature Gran % (Auto) 0.7 H Neut % (Auto) 61.8 Lymph % (Auto) 25.0 Mcnairy % (Auto) 10.6 H Eos % (Auto) 1.2 Baso % (Auto) 0.7 Lymph # (Auto) 2.20 Mcnairy # (Auto) 0.9 H Eos # (Auto) 0.1 Baso # (Auto) 0.1 Abs Immat Gran (auto) 0.06 H Absolute Neuts (auto) 5.5 Absolute Nucleated RBC 0.000 Nucleated RBC % 0.0 Sodium 127 L Potassium 3.9 Chloride 96 L Carbon Dioxide 23 Anion Gap 8 BUN 9 Creatinine 0.65 L Estim Creat Clear Calc 155 Estimated GFR > 60 Glucose 92 Calcium 8.4 Magnesium Total Bilirubin 1.5 H AST 42 ALT 34 Alkaline Phosphatase 95 Troponin I < 0.012 < 0.012 NT-Pro-B Natriuret Pep 807 H Total Protein 6.6 Albumin 3.9 Ur Random Sodium 05/23/25 05/23/25 05/24/25 22:42 22:45 03:57 WBC 6.2 RBC 5.26 Hgb 16.2 Hct 47.2 MCV 89.7 MCH 30.8 MCHC 34.3 RDW 13.2 Plt Count 242 MPV 9.7 Immature Gran % (Auto) 1.1 H Neut % (Auto) 84.6 H Lymph % (Auto) 11.7 L Mcnairy % (Auto) 2.3 L Eos % (Auto) 0.0 Baso % (Auto) 0.3 Lymph # (Auto) 0.72 L Mcnairy # (Auto) 0.1 Eos # (Auto) 0.0 Baso # (Auto) 0.0 Abs Immat Gran (auto) 0.07 H Absolute Neuts (auto) 5.2 Absolute Nucleated RBC 0.000 Nucleated RBC % 0.0 Sodium 124 L Potassium 4.2 Chloride 94 L Carbon Dioxide 21 L Anion Gap 9 BUN 12 Creatinine 0.65 L Estim Creat Clear Calc 155 Estimated GFR > 60 Glucose 135 H Calcium 8.8 Magnesium 1.8 Total Bilirubin 1.5 H AST 42 ALT 33 Alkaline Phosphatase 91 Troponin I < 0.012 NT-Pro-B Natriuret Pep Total Protein 6.7 Albumin 4.0 Ur Random Sodium 15 Quality VTE Prophylaxis VTE prophylaxis: pharmacologic ordered
--- NOTE | 2025-05-24 07:37 | PM.CNPUL ---
Assessment and Plan Assessment and plan (1) Lung mass: Code(s): R91.8 - Other nonspecific abnormal finding of lung field Status: Acute Assessment and Plan: Patient with 43 pack year tobacco use currently smoking 10 cigarettes a day, 20 lb weight loss since January of 2025, hemoptysis, left lung and hilar mass with collapse of the left lower lobe, presents with 1 day of hemoptysis. plan: Concern for lung cancer. I discussed and reviewed the CT scan of the chest with the radiologist and given the proximal nature of his mass best diagnostic procedure is bronchoscopy. Patient currently has mild wheezing and will treat for COPD and pneumonia over the next 48 hours. We will then reassess for bronchoscopy with possible Louise needle biopsy of subcarinal lymph nodeson 05/27/2025. Discussed with Dr. Jose, will follow with you. (2) Hemoptysis: Code(s): R04.2 - Hemoptysis Status: Acute Assessment and Plan: Patient with a history of peripheral arterial disease status post stent to the left lower extremity in 2022 on Eliquis 5 p.o. b.i.d., left lung and hilar mass with collapse of the left lower lobe, 43 pack year tobacco use currently smoking 10 cigarettes a day, presents with 1 day of hemoptysis. etiology of patient's hemoptysis includes lung cancer, pneumonia, tracheobronchitis. plan: Eliquis currently on hold. Last dose given 01/20/2025 at 10:04 p.m.. Given his hemoptysis will need to hold anticoagulation at this time. Patient will need bronchoscopy with plan for 05/27/2025. Will also treat for pneumonia and currently on ceftriaxone, azithromycin, Flagyl all day 2. Will also treat for COPD exacerbation as below. (3) COPD (chronic obstructive pulmonary disease): Qualifiers: COPD type: unspecified COPD Qualified Code(s): J44.9 - Chronic obstructive pulmonary disease, unspecified Code(s): J44.9 - Chronic obstructive pulmonary disease, unspecified Status: Chronic Assessment and Plan: GOLD grade 2 group E COPD Regarding his COPD the patient was diagnosed within the last few months. He smoked tobacco from age 22 to current at 1 pack per day for total of 43 pack years. Currently smoking 10 cigarettes a day. His exposed to secondhand smoke from his father but none since. PFTs on 05/09/2025 demonstrate a moderate obstructive abnormality with a mild restrictive abnormality resulting in a moderately severe decrease in his FEV1 at 57%. FEV1: FVC ratio 60%, moderately decreased DLCO that corrects when adjusted for alveolar volume. He denies vaping or illicit drug use. 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 He denies sand blasting, welding, professional painting, coal mining, construction work. He noticed dyspnea on exertion 3-4 years ago that has gotten progressively worse. One year ago he could walk 3/4 of a block. Recently he can walk 1/2 a block. He had no chronic cough or phlegm production until he developed pneumonia in January of 2025. currently patient has increased phlegm production, mild wheezes, increased shortness of breath. Plan: I will treat him for COPD exacerbation. he has very faint expiratory wheezes and I will change his Solu-Medrol to prednisone 40 mg p.o. q.day, continue DuoNebs q.4 hours, I will discontinue Daliresp Aziz mow only been on this 3 days. I will continue guaifenesin 1200 mg p.o. q.12 hours. I will treat for possible bacterial infection with ceftriaxone, azithromycin and Flagyl, all day 2. I will send a COVID, influenza, RSV RT PCR assay, respiratory pathogen panel, urine for Legionella antigen, urine for pneumococcal antigen and mycoplasma serum IgM. (4) LÓPEZ (obstructive sleep apnea): Code(s): G47.33 - Obstructive sleep apnea (adult) (pediatric) Status: Chronic Assessment and Plan: Patient diagnosed with obstructive sleep apnea with a CPAP titration on 06/06/2017 and a pressure of 11 with nasal pillows to control his apnea events and hypoxemia. One year ago he increased his machine to 11.5 and he increased his to machine to 12 in January of 2025 with his respiratory issues. 05/24/2025: Patient felt he was too unstable to use his home pulse CPAP 12. Plan: Patient with active hemoptysis, wheezing at this time will hold off on his home CPAP unit. When she is more stable we can initiate CPAP. (5) Smoking: Code(s): F17.200 - Nicotine dependence, unspecified, uncomplicated Status: Acute Assessment and Plan: Patient with a 43 pack year tobacco use currently smoking 10 cigarettes a day. 05/24/2025: We briefly talked about tobacco cessation and he understands the importance of tobacco cessation. History of Present Illness History of Present Illness Consult date: 05/24/25 Chief complaint: HEMOPTYSIS/Lung Mass Narrative: 05/24/2025: This is a new pulmonary consult for hemoptysis with lung mass. 65-year-old with a history of hypertension, atrial fibrillation, peripheral arterial disease status post left mechanical thrombectomy and balloon Keenan GGO plasty and stenting to the left popliteal artery, left posterior tibial artery and left tibioperoneal trunk on 10/22/2022 on Eliquis 5 PO BID thereafter, morbid obesity with LÓPEZ on CPAP 11, tobacco use and GOLD grade 2 group E COPD. Regarding his COPD the patient was diagnosed within the last few months. He smoked tobacco from age 22 to current at 1 pack per day for total of 43 pack years. Currently smoking 10 cigarettes a day. His exposed to secondhand smoke from his father but none since. PFTs on 05/09/2025 demonstrate a moderate obstructive abnormality with a mild restrictive abnormality resulting in a moderately severe decrease in his FEV1 at 57%. FEV1: FVC ratio 60%, moderately decreased DLCO that corrects when adjusted for alveolar volume. He denies vaping or illicit drug use. 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 He denies sand blasting, welding, professional painting, coal mining, construction work. He noticed dyspnea on exertion 3-4 years ago that has gotten progressively worse. One year ago he could walk 3/4 of a block. Recently he can walk 1/2 a block. He had no chronic cough or phlegm production until he developed pneumonia in January of 2025. Regarding his obstructive sleep apnea he had a CPAP titration on 06/06/2017 with a pressure of 11 controlling his oxygen and obstructive events. He does not have a [employer] and purchased his machine. One year ago he increased his pressure to 11.5. Since January of 2025 he increased his pressure to 12. He does not routinely check his downloads. Patient had a history of atrial fibrillation but did not require Eliquis until he had a left lower leg arterial thrombus on 10/21/2022 and was started on Eliquis at that time. In January of 2025 the patient developed fever, cough, chills, sinus congestion, shortness of breath, increased phlegm production and wheezing. He saw his PCP who diagnosed him with a pneumonia and treated him with antibiotics and steroids for 7 days. He got better over the next week back to 50-60% of his baseline. Off of these medicines for 1 week he got worse and worse prescribed antibiotics and steroids and he says he got 30-40% better. Since then he has had good days and bad days. On a good day he feels the same as he did prior to his pneumonia in . On a bad day he produces thick white to clear phlegm 10-15 times a day has worsening shortness of breath. 05/14/2025: CT scan Report of the chest to evaluate his aorta which was dictated on 05/21/2025. No comparison. Left hilar mass with complete collapse of the left lower lobe shift to the mediastinum to the left, mild centrilobular emphysema, multiple enlarged mediastinal and hilar lymph nodes. 05/21/2025 the patient was at his baseline with average amount of phlegm production, shortness of breath and dyspnea on exertion. On 05/22/2025 the patient took a sleeping pill and was anxious because he was told that his CT scan of the chest had a lung mass. He slept well but when he woke up on 05/23/2025 he had coughing paroxysms and the phlegm had blood. The blood ranged from flex, to streaks, to what sounds like veda blood clots and he coughed up blood to 30 times. 05/23/25: Patient presented to the emergency department with blood pressure 95/58, heart rate 78, respirations 24, room air saturations 96%. He had mild inspiratory wheezes. His white blood cell count was 8.8, his creatinine was 0.65, eosinophils 1.2%. BNP 807, troponin negative, INR 1.2, CT angiogram of the chest showed no PE, left lower lobe mass with extension to hilum with collapse of the left lower lobe, and large mediastinal and hilar lymphadenopathy. I was contacted by the emergency department we discussed the case and I instructed them to discontinue his Eliquis, initiate ceftriaxone, azithromycin and Flagyl. Initiate Solu-Medrol 40 q.6 and DuoNebs q.4 hours and guaifenesin 1200 p.o. b.i.d.. Plan was to leave patient NPO to be evaluated on 05/24/2025. 05/24/2025: Overall the patient states that his breathing is improved. He denies fever, chills, rigors or diaphoresis. He thinks that his hemoptysis is better. I asked him to expectorate and he had phlegm with flex and 1 streak of blood. He is afebrile. Patient was on room air with saturations 96%. White blood cell count 6.2, creatinine 0.65. DATA: 05/23/25: EXAMINATION: CTA chest PE protocol, 05/23/2025 16:50 CDT HISTORY: hemoptysis COMPARISON: No comparisons available. FINDINGS: No significant coronary calcification is present ([id number]) LUNGS: The contrast bolus is adequate, there is no pulmonary embolism identified. No tracheomalacia. No bronchiectasis. There is a large focus of abnormal density in the left lower lobe with no significant air bronchograms appreciated and occlusion of the bronchus in this location. Minimal emphysematous changes. No bullous formation. Minimal pulmonary fibrotic changes. No significant honeycombing is identified. There is volume loss in the left lung with mediastinal shift to the left. Scattered bilateral punctate calcified granulomas. HEART AND PERICARDIUM: Mild cardiomegaly. Trace pericardial effusion. AORTA: Normal caliber aorta.. PULMONARY ARTERIES: No pulmonary embolism ADENOPATHY/MEDIASTINUM: There are multiple enlarged lymph nodes within the mediastinum and the kathia the largest in the subcarinal space measuring 4 x 3.5 cm. LIMITED VIEWS OF THE ABDOMEN: Partially imaged large bilateral renal cysts the largest on the right side 8 x 6 cm incompletely evaluated, renal ultrasound is suggested. Minimal cholelithiasis. OSSEOUS STRUCTURES: No sclerotic or lytic lesions. No acute rib fractures. OVERLYING SOFT TISSUES: Unremarkable. THYROID: There are large cystic appearing bilateral thyroid nodules incompletely evaluated the largest on the right side 5 x 6 cm, ultrasound is recommended. IMPRESSION: 1. Negative for pulmonary embolism. Large area of abnormal density within the left lower which may reflect a large infiltrate with associated lymphadenopathy however there are no significant air bronchograms and the possibility of an obstructing endobronchial lesion should be considered. Metastases are not excluded. Bronchoscopy is suggested 05/14/2025: Dictated report on 05/21/2025 ( No images): CTA chest with and without contrast. Clinical data concern for enlarged aorta. Findings: There are multiple enlarged mediastinal and bilateral hilar lymph nodes. The lung windows demonstrate complete collapse of the left lower lobe. There is right to left mediastinal shift. There appears to be a left hilar mass that may extend into the distal left mainstem bronchus. There is mild centrilobular emphysema there are no suspicious pulmonary nodules throughout the aerated portions of the lung. Impression: There appears to be left hilar mass that extends into the distal left mainstem bronchus. This is concerning for primary bronchogenic carcinoma. There is associated complete collapse of the left lower lobe. Recommend further evaluation with bronchoscopy. 2. There are multiple enlarged mediastinal bilateral hilar lymph nodes, likely representing metastatic lymphadenopathy. PET-CT scan may provide additional information. 3. Diffuse enlargement of the thyroid gland. Recommend further evaluation with dedicated thyroid sonogram. 4. Mild cardiomegaly. There is diffuse coronary Atherosclerotic disease. 05/09/2025: This is a pulmonary function test with spirometry, plethysmography and diffusing capacity. The test was performed and results interpreted in accordance with the 2019 and 2005 ATS/ERS Task Force guidelines respectively using the Global Lung Function Initiative-2012 reference equations. Patient demonstrated good effort and cooperation. Reproducibility criteria were met. The quality of the spirometry maneuver was Grade A. Findings: Spirometry: There is decreased maximal expiratory airflow at all lung volumes with a concave expiratory flow tracing. The contour the inspiratory flow tracing is normal. The FVC is 3.83 L, 72% predicted. The FEV1 is 2.31 L, 57% predicted. The FEV1: FVC ratio is 60%. Plethysmography: The total lung capacity is 5.77 L, 72% predicted. The functional residual capacity is 3.26 L, 76% predicted. The residual volume is 1.70 L, 65% predicted. Diffusing capacity: The diffusing capacity unadjusted for hemoglobin and carboxyhemoglobin is 17.3, 59% predicted. The diffusing capacity adjusted for alveolar volume is 3.80, 99% predicted. Impression: There is a combined obstructive and restrictive ventilatory abnormality. There are no guidelines to assign the severity of obstruction and restriction with a combined abnormality. In my opinion, given the moderately concave expiratory flow tracing, mildly decreased FEV1: FVC ratio and mild restrictive abnormality I would state there is a moderate obstructive abnormality and a mild restrictive abnormality resulting in a moderately severe decrease in the FEV1. The diffusing capacity unadjusted for hemoglobin and carboxyhemoglobin is moderately decreased and normalizes when adjusted for alveolar volume. There are no prior studies for comparison 04/25/2025: Echocardiogram report from [facility]: Conclusions: 1. Mild concentric hypertrophy with normal LV size and low normal function with EF 50-55%. RV appears to have good function from subcostal view. Both atria are dilated. Mild degenerative alveolar changes. Mitral valve: Posterior calcification, valve opens well. I disagree with mean gradient measurement. Aortic valve is trileaflet with sclerosis and mildly elevated peak velocity. There is mild to moderate AI. Aortic root is 4.2 cm. Ascending aorta 4.0 cm. Tricuspid valve: The estimated RVSP is 23. 03/05/2025: Clinical Indication: Pneumonia PA and lateral views of the chest: Comparison: 05/25/2017 Findings: There is central congestive change and possible minimal bibasilar pulmonary edema. Cardiomediastinal silhouette is within normal limits. Bones and soft tissues are unremarkable. Impression: Central congestive change and possible minimal bibasilar pulmonary edema. 06/02/2017: CPAP titration: DATE OF STUDY: June 02, 2017. The patient is a 57-year-old man, 76 inches in height, weighing 340 pounds with a body mass index of 41.4. His last polysomnogram that I have here was dated August 05, 2003, and it was a split night polysomnogram then. The patient was titrated with CPAP from 5 to 10 cm of water and appeared to have optimum level achieved at 9 cm of water. The patient is now back for CPAP retitration. DIAGNOSTIC IMPRESSION: Adequate titration of CPAP to a final pressure of 11 cm of water was noted with correction of respiratory events. Oxygen saturations also stabilized. Sleep efficiency was very good at that level of CPAP. The patient spent the entire time in the supine position at that level of CPAP. We will recommend CPAP at 11 cm of water with a heated humidifier for added comfort. The patient was titrated with his own medium Breeze nasal pillow mask Review of Systems Constitutional: Constitutional: Reports no additional constitutional complaints Eyes: Eyes: Reports no additional eye complaints ENT: Reports system reviewed and no additional complaints, except as documented Cardiovascular: Cardiovascular: Reports no additional cardiovascular complaints Respiratory: Respiratory: Reports no additional respiratory complaints Gastrointestinal: Gastrointestinal: Reports no additional gastrointestinal complaints Musculoskeletal: Musculoskeletal: Reports no additional musculoskeletal complaints Neurologic: Reports system reviewed and no additional complaints, except as documented Psychiatric: Psychiatric: Reports no additional psychiatric complaints Endocrine: Endocrine: Reports no additional endocrine complaints Hematologic/Lymphatic: Hematologic/Lymphatic: Reports no additional hematologic/lymphatic complaints Allergic/Immunologic: Allergic/Immunologic: Reports no additional allergic/immunologic complaints [facility] Past Medical History Medical History (Updated 05/23/25 @ 20:37 by JARON Shirley) Nicotine abuse Hyponatremia Smoking Left popliteal artery occlusion Morbid obesity with BMI of 40.0-44.9, adult BPH loc w urin obs/LUTS Chronic atrial fibrillation Essential hypertension Mixed hyperlipidemia Nonrheumatic aortic valve insufficiency LÓPEZ (obstructive sleep apnea) Surgical History Surgical History H/O varicose vein stripping right History of oral cancer Family History Family History Father Hypertension Malignant neoplasm of prostate Family history of lung cancer Mother Hypertension Sibling Malignant neoplasm of prostate Social History Social History Smoking packs per day: 1 Smoking cigarettes per day: 20.0 Years smoked: 40 Smoking pack-years: 40.00 Smoking status: Current every day smoker Tobacco type: cigarettes Smokeless tobacco user: other Second hand tobacco smoke exposure: No Alcohol intake: former Drinks per week: 0 Alcohol use details: rare Substance use: never Substance use type: does not use Do You Feel Safe in your Home?: Yes Lack of Transportation: YES Lack of Food: Never True Current Housing: I Have Housing Concerned About Future Housing: No Difficulty Paying Gas/Electric Bills: No Difficulty Paying for Meds: No Currently Unemployed: No Education: Bachelor's Degree Difficulty w/ Childcare or Family Care: No Living arrangements: alone Occupation/Education: retired Gender identity (if verbalized by the patient): Male Sexual Orientation (if Verbalized by the Patient): Straight or Heterosexual Spiritual care concerns: No Meds Home Medications and Allergies Home Medications ?Medication ?Instructions ?Recorded ?Confirmed ?Type Adults Multivitamin 1 tab-cap PO DAILY 03/16/22 05/23/25 History Glucosamine Chondroitin 2 tab-cap PO DAILY 03/16/22 05/23/25 History aspirin 81 mg tablet,delayed 81 mg PO DAILY 11/01/22 05/23/25 History release (Adult Low Dose Aspirin) amlodipine 10 mg-benazepril 20 mg 1 cap PO DAILY #90 caps 08/27/24 05/23/25 Rx capsule (Lotrel) apixaban 5 mg tablet (Eliquis) 5 mg PO BID #180 tabs 08/27/24 05/23/25 Rx atorvastatin 40 mg tablet 40 mg PO HS #90 tabs 08/27/24 05/23/25 Rx hydralazine 50 mg tablet 50 mg PO TID #270 tabs 08/27/24 05/23/25 Rx isosorbide mononitrate 30 mg 30 mg PO DAILY #90 tabs 08/27/24 05/23/25 Rx tablet,extended release 24 hr metoprolol succinate 200 mg 200 mg PO DAILY #90 tabs 08/27/24 05/23/25 Rx tablet,extended release 24 hr omeprazole 20 mg capsule,delayed 20 mg PO DAILY #90 caps 08/27/24 05/23/25 Rx release tamsulosin 0.4 mg capsule 0.4 mg PO BID #180 caps 08/27/24 05/23/25 Rx halobetasol propionate 0.05 % 1 applic topical DAILY #15 grams 11/27/24 05/23/25 Rx topical cream fluticasone 500 mcg-salmeterol 50 1 inh inhalation Q12H #60 ea 05/07/25 05/23/25 Rx mcg/dose blistr powdr for inhalation (Advair Diskus) albuterol sulfate 90 mcg/actuation 1 inh inhalation Q4H PRN shortness 05/19/25 05/23/25 Rx aerosol inhaler (Ventolin HFA) of breath or wheezing #6.7 grams escitalopram oxalate 5 mg tablet 5 mg PO DAILY #30 tabs 05/22/25 05/23/25 Rx lorazepam 0.5 mg tablet 0.5 mg PO BID PRN anxiety #20 tabs 05/22/25 05/23/25 Rx roflumilast 250 mcg tablet 250 mcg PO DAILY 4 weeks #28 tabs 05/22/25 05/23/25 Rx Allergies Allergy/AdvReac Type Severity Reaction Status Date / Time No Known Allergies Allergy Verified 05/23/25 15:35 Vital Signs Vital Signs - 24 hr 05/23/25 15:25 05/23/25 15:36 05/23/25 15:46 Temperature 36.4 C Pulse Rate 78 81 Respiratory Rate 24 H 24 H Blood Pressure 95/58 L Pulse Oximetry 96 95 94 Oxygen Delivery Room Air Room Air 05/23/25 16:13 05/23/25 16:17 05/23/25 16:32 Temperature Pulse Rate 82 74 64 Respiratory Rate 16 20 22 H Blood Pressure 108/67 125/80 116/97 H Pulse Oximetry 97 95 93 Oxygen Delivery 05/23/25 16:47 05/23/25 17:15 05/23/25 17:17 Temperature Pulse Rate 73 80 71 Respiratory Rate 18 16 20 Blood Pressure 110/67 107/62 Pulse Oximetry 96 96 95 Oxygen Delivery 05/23/25 18:16 05/23/25 18:38 05/23/25 20:00 Temperature Pulse Rate 86 71 81 Respiratory Rate 22 H 12 Blood Pressure 109/60 Pulse Oximetry 99 Oxygen Delivery 05/23/25 20:56 05/23/25 22:30 05/23/25 23:45 Temperature 36.9 C Pulse Rate 84 Respiratory Rate 20 Blood Pressure 130/74 Pulse Oximetry 95 Oxygen Delivery Room Air CPAP 05/24/25 00:00 05/24/25 00:03 05/24/25 00:16 Temperature Pulse Rate 98 105 H 102 H Respiratory Rate 22 H 22 H Blood Pressure Pulse Oximetry Oxygen Delivery 05/24/25 04:00 05/24/25 04:10 05/24/25 04:37 Temperature 36.6 C Pulse Rate 93 48 L 88 Respiratory Rate 20 20 Blood Pressure 125/69 Pulse Oximetry 96 Oxygen Delivery 05/24/25 04:43 Temperature Pulse Rate 85 Respiratory Rate 20 Blood Pressure Pulse Oximetry Oxygen Delivery Exam Const: General: cooperative and comfortable Orientation/consciousness: oriented to person, oriented to place and oriented to time Other: obese in distress on room air HENMT: Head: normal to inspection Ears: hearing grossly normal bilaterally Eyes: General: appearance normal, both eyes and all related structures Neck: Neck: normal visual inspection Chest: Chest palpation & inspection: normal inspection of the chest Resp: Effort & Inspection: normal respiratory effort and able to speak in complete sentences Auscultation: no crackles, no rales, no rhonchi, no wheezes and diminished lung sounds Other: faint end expiratory wheezes. Cardio: Jugular venous distension: no JVD GI: Inspection: normal to inspection GI Palp: No abdominal tenderness Skin: General skin exam: normal color Neuro: General: oriented to person, oriented to place and oriented to time Extrem: General: normal to inspection and no edema Psych: Appearance: grossly normal Results Laboratory Findings 05/24/25 03:57 05/24/25 03:57 Abnormal lab findings: Abnormal Labs 05/23/25 05/23/25 05/24/25 15:53 15:54 03:57 Immature Gran % (Auto) 0.7 H 1.1 H Neut % (Auto) 84.6 H Lymph % (Auto) 11.7 L Hubbard % (Auto) 10.6 H 2.3 L Lymph # (Auto) 0.72 L Hubbard # (Auto) 0.9 H Abs Immat Gran (auto) 0.06 H 0.07 H Sodium 127 L 124 L Chloride 96 L 94 L Carbon Dioxide 21 L Creatinine 0.65 L 0.65 L Glucose 135 H Total Bilirubin 1.5 H 1.5 H NT-Pro-B Natriuret Pep 807 H Diagnostic Findings Additional studies: ITS Impressions Chest X-Ray 05/23/25 16:20 Impression: 1: Cardiomegaly with mild interstitial edema. Chest CTA 05/23/25 17:05
[2025-05-24 07:54] LABS: INR 1.2; Partial Thromboplastin Time 30.0 Seconds (22.3-36.8); Prothrombin Time 15.7 Seconds (11.1-14.7)
[2025-05-24 08:19] LABS: CRP 0.5 mg/dL (<1.0)
[2025-05-24 08:49] LABS: Procalcitonin 0.3 ng/mL
[2025-05-24] MEDS: ROFLUMILAST 250 MCG TABLET PO (09:50)
[2025-05-24] MEDS: ESCITALOPRAM OXALATE 5 MG TABLET PO (09:50)
[2025-05-24] MEDS: MULTIVITAMINS THERAPEUTIC TAB (*BKC) 1 TABLET PO (09:50)
[2025-05-24] MEDS: guaiFENesin 12 HR 600 MG TABCR 1200 MG PO ×2 (09:51→20:54)
[2025-05-24] MEDS: ISOSORBIDE MONONITRATE 30 MG TAB.ER.24H PO (09:52)
[2025-05-24] MEDS: METOPROLOL SUCCINATE EXT REL 100 MG TABCR 200 MG PO (09:53)
[2025-05-24] MEDS: NICOTINE (*PBKC) 21 MG PATCH 1 PATCH TRANSDERM (09:54)
[2025-05-24] MEDS: PANTOPRAZOLE 40 MG TABLET PO (09:54)
[2025-05-24] MEDS: ACETAMINOPHEN 500 MG TABLET PO ×2 (09:54→20:53)
[2025-05-24] MEDS: TAMSULOSIN HCL 0.4 MG CAPSULE PO ×2 (09:54→20:54)
[2025-05-24] MEDS: FLUTICASONE/SALMETEROL 230-21 MCG INHALER 1 PUFF 2 PUFF INHALATION (11:15)
[2025-05-24 11:28] LABS: Influenza A QL RT-PCR Negative (Negative); Influenza B QL RT-PCR Negative (Negative); RSV RNA, RT-PCR Negative (Negative); SARS-CoV-2 RNA PCR Negative (Negative)
[2025-05-24] MEDS: ATORVASTATIN 40 MG TABLET PO (20:54)
[2025-05-24] MEDS: cefTRIAXone 1 GM in SODIUM CHLORIDE 0.9% IV 50 ML 100 ML IVPB (21:02)
[2025-05-24] MEDS: AZITHROMYCIN IV 500 MG in SODIUM CHLORIDE 0.9% IV 250 ML IVPB (23:46)
[2025-05-25] VITALS (20 sets, daily range): BP systolic 116–125; BP diastolic 56–81; PULSE 68–95; RESP 16–22; TEMP 36.4–36.7; O2SAT 94–96
[2025-05-25] MEDS: ACETAMINOPHEN 500 MG TABLET PO ×2 (00:53→18:35)
[2025-05-25] MEDS: IPRATROPIUM 0.5 MG/ALBUTEROL SULFATE 2.5 MG AMPUL.NEB 3 ML INHALATION ×5 (04:01→20:31)
[2025-05-25] MEDS: metroNIDAZOLE 500 MG/ISO 100ML 500 MG/100 ML BAG 100 MG IVPB ×3 (06:39→21:16)
--- NOTE | 2025-05-25 06:51 | P.PNIM_ITS ---
Progress Note: A&P Assessment and Plan (1) Lung mass: Code(s): R91.8 - Other nonspecific abnormal finding of lung field Status: Acute Assessment and Plan: * Chest CTA: Negative for pulmonary embolism. Large area of abnormal density within the left lower which may reflect a large infiltrate with associated lymphadenopathy however there are no significant air bronchograms and the possibility of an obstructing endobronchial lesion should be considered. Metastases are not excluded. Bronchoscopy is suggested * Mass present in KEIKO * NPO at NV. * Trend labs and VS. * Orders per Dr. Krishna include: Continue Eliquis, Solumedrol 40 mg Q6 hrs, Duoneb Q4 hrs prn, Rocephin 1G daily, Azithromycin 500 mg IVPB Q24 hrs, Flagyl 500 mg IVPB Q8 hrs, and Guaifenesin BID. * Heme/onc consult - appreciate further recommendations * Consult Pulmonology * Potential Bronchoscopy w/Bx on 05/27 if patient continues to clinically improve (2) COPD (chronic obstructive pulmonary disease): Qualifiers: COPD type: unspecified COPD Qualified Code(s): J44.9 - Chronic obstructive pulmonary disease, unspecified Code(s): J44.9 - Chronic obstructive pulmonary disease, unspecified Status: Chronic Assessment and Plan: * See #1 * Supplemental oxygen as needed. (3) Hyponatremia: Code(s): E87.1 - Hypo-osmolality and hyponatremia Status: Acute Assessment and Plan: * Uncertain etiology. Possible causes SIADH, Electrolyte shift from Lung mass, Dehydration * Collect urine and serum osmolalities, urine sodium * Normal renal function. * Normal saline at 100 ml/hr ordered. * Trend labs * 05/25: Na 125 - Asymptomatic, continue to rehydrate, urine studies still pending. * Fluid restrict 1500ml * Nephro consult for any further recommendations (4) Thyroid nodule: Code(s): E04.1 - Nontoxic single thyroid nodule Status: Acute Assessment and Plan: * Chest CTA: There are large cystic appearing bilateral thyroid nodules incompletely evaluated the largest on the right side 5 x 6 cm, ultrasound is recommended. * Thyroid US: * There is a 3.1 cm nodule in the left mid thyroid lobe. A fine needle aspiration is recommended. * There is a 5.6 cm mildly complicated cyst in the right thyroid lobe. * There is a 3 cm cyst in the left thyroid lobe. * TSH pending * Heme/onc consult given possible need for FNA - would need to wait until after bronchoscopy for this (5) Chronic atrial fibrillation: Code(s): I48.20 - Chronic atrial fibrillation, unspecified Status: Chronic Assessment and Plan: * Continue Eliquis therapy * Telemetry (6) Mixed hyperlipidemia: Code(s): E78.2 - Mixed hyperlipidemia Status: Chronic Assessment and Plan: * Heart Healthy diet w/NPO at [place]. * Continue statin once confirmed. (7) Essential hypertension: Code(s): I10 - Essential (primary) hypertension Status: Chronic Assessment and Plan: * BP currently stable w/SBP running low 100s-110/Diastolics of 60s * Monitor and trend. * Reorder home meds once they are confirmed and reviewed. * 116/56 (8) LÓPEZ (obstructive sleep apnea): Code(s): G47.33 - Obstructive sleep apnea (adult) (pediatric) Status: Chronic Assessment and Plan: * Home CPAP therapy. (9) Nicotine abuse: Code(s): Z72.0 - Tobacco use Status: Chronic Assessment and Plan: * 40+ Pack year smoker * Nicotine patch daily. * Counseled for the importance of smoking cessation in the current setting. Subjective Date/time seen: 05/25/25 06:51 Interval history: This is a 65 year old male pt with hx of slip maker smoking, A-fib on Eliquis, BPH, Obesity, HTN, HLD, Left popliteal artery occlusion, LÓPEZ and aortic valve insufficiency comes to the ER with complaints of having persistent SOB and today hemoptysis. 05/25/2025 Patient sitting at bedside during examination. Denies any chest pain, shortness of breath at rest, n/v or abd pain. 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 Remains afebrile, not on O 2 supp, WBC up from 6.2 ->11.7 (which may be reactive from steroids). Na up to 125 - will place on fluid restriction. Thyroid US showed 3.1 cm nodule in the left mid thyroid lobe - will consult Heme/Onc regarding lung mass/thyroid nodule. Review of Systems Review of Systems: All systems reviewed & are unremarkable except as noted in HPI and below Exam Const: General: uncomfortable Other: Obese male pt sitting on stretcher at this time. He appears overall uncomfortable. HENMT: Mouth: Yes moist mucous membranes Eyes: General: appearance normal, both eyes and all related structures Neck: Neck: supple and no JVD Carotids: no bruits Lymphatic: lymphadenopathy not noted Chest: Other: Not tender to palpation Resp: Effort & Inspection: abnormal respiratory effort (Increased effort) Auscultation: rhonchi and wheezes Other: Abnormal lung sounds in all lobes with scattered rhonchi and wheezing, but decreased lung sounds KEIKO. Cardio: Rate: regular rate Rhythm: abnormal rhythm regularly irregular (Hx. A-fib) Heart sounds: no gallops, Murmur heart sound present and no rubs GI: Inspection: non-distended Auscultation: normal bowel sounds Skin: General skin exam: normal color, no rashes or lesions noted and no erythema Wounds: no wounds Neuro: Speech: normal speech Motor exam (neuro): 5/5 motor strength present throughout and Normal motor muscle tone present throughout Sensory Exam: normal sensation Extrem: General: normal to inspection, edema (trace BLE) and no pedal edema Psych: Mental Status: mental status grossly normal Affect: Anxious affect present Objective Data Vital Signs Vital Signs: Vital Signs - 24 hr 05/24/25 08:00 05/24/25 08:00 05/24/25 12:00 Temperature Pulse Rate 94 89 Respiratory Rate Blood Pressure Pulse Oximetry Oxygen Delivery CPAP 05/24/25 13:11 05/24/25 13:17 05/24/25 14:00 Temperature 97.5 F L Pulse Rate 78 84 90 Respiratory Rate 16 16 18 Blood Pressure 127/58 L Pulse Oximetry 96 Oxygen Delivery 05/24/25 15:45 05/24/25 15:52 05/24/25 16:00 Temperature Pulse Rate 80 86 90 Respiratory Rate 16 16 Blood Pressure Pulse Oximetry Oxygen Delivery 05/24/25 19:34 05/24/25 19:42 05/24/25 19:55 Temperature 97.6 F Pulse Rate 84 83 83 Respiratory Rate 16 16 14 Blood Pressure 124/63 Pulse Oximetry 97 Oxygen Delivery 05/24/25 20:00 05/24/25 20:44 05/24/25 23:37 Temperature Pulse Rate 80 86 Respiratory Rate 20 Blood Pressure Pulse Oximetry Oxygen Delivery Room Air 05/24/25 23:45 05/24/25 23:47 05/25/25 00:00 Temperature Pulse Rate 88 84 Respiratory Rate 18 Blood Pressure Pulse Oximetry Oxygen Delivery CPAP 05/25/25 04:00 05/25/25 04:02 05/25/25 04:10 Temperature Pulse Rate 68 80 84 Respiratory Rate 16 18 Blood Pressure Pulse Oximetry Oxygen Delivery 05/25/25 04:10 05/25/25 04:15 Temperature 97.6 F Pulse Rate 86 Respiratory Rate 18 Blood Pressure 123/81 Pulse Oximetry 94 Oxygen Delivery CPAP Intake/Output Intake/Output: Intake & Output 05/22/25 05/23/25 05/24/25 05/25/25 23:59 23:59 23:59 23:59 Intake Total 100 1320 640 Output Total 400 Balance 100 920 640 Meds/Results Medications: Active Medications Generic Name Dose Route Start Last Admin Trade Name Freq PRN Reason Stop Dose Admin Acetaminophen 500 mg 05/24/25 08:49 05/25/25 00:53 Acetaminophen 500 Mg Tablet PO 500 mg Q4H PRN Administration Mild Pain (1-3) or Fever Albuterol/Ipratropium 3 ml 05/24/25 08:55 Ipratropium 0.5 Mg/Albuterol Sulfate 2.5 Mg Ampul.Neb 3 Ml INHALATION Q6HR PRN Shortness Of Breath Albuterol/Ipratropium 3 ml 05/24/25 12:00 05/25/25 04:01 Ipratropium 0.5 Mg/Albuterol Sulfate 2.5 Mg Ampul.Neb 3 Ml INHALATION 3 ml Q4HRT SONYA Administration Amlodipine Besylate 10 mg 05/24/25 09:00 05/24/25 09:51 Amlodipine Besylate 10 Mg Tablet PO 10 mg DAILY SONYA Administration Atorvastatin Calcium 40 mg 05/23/25 21:45 05/24/25 20:54 Atorvastatin 40 Mg Tablet PO 40 mg HS SONYA Administration Escitalopram Oxalate 5 mg 05/24/25 09:00 05/24/25 09:50 Escitalopram Oxalate 5 Mg Tablet PO 5 mg DAILY SONYA Administration Guaifenesin 1,200 mg 05/23/25 21:00 05/24/25 20:54 Guaifenesin 12 Hr 600 Mg Tabcr PO 1,200 mg Q12HR SONYA Administration Hydralazine HCl 50 mg 05/23/25 22:00 05/25/25 06:39 Hydralazine Hcl 50 Mg Tablet PO 50 mg Q8HR SONYA Administration Metronidazole 500 mg in 100 mls @ 100 mls/hr 05/23/25 22:00 05/25/25 06:39 Flagyl 500 Mg/Iso Soln 100 Ml IVPB 100 mls/hr Q8H SONYA Administration Ceftriaxone Sodium 1 gm/ 50 mls @ 100 mls/hr 05/24/25 21:00 05/24/25 21:32 Sodium Chloride IVPB Infused Q24H SONYA Infusion Azithromycin 500 mg/ Sodium 250 mls @ 250 mls/hr 05/23/25 23:00 05/25/25 00:46 Chloride IVPB Infused Q24H SONYA Infusion Isosorbide Mononitrate 30 mg 05/24/25 09:00 05/24/25 09:52 Isosorbide Mononitrate 30 Mg Tab.Er.24h PO 30 mg DAILY SONYA Administration Lisinopril 20 mg 05/24/25 09:00 05/24/25 09:51 Lisinopril 20 Mg Tablet PO 20 mg QAM SONYA Administration Lorazepam 0.5 mg 05/23/25 21:35 05/24/25 02:03 Lorazepam (*Crx) 0.5 Mg Tablet PO 0.5 mg BID PRN Administration Anxiety Metoprolol Succinate 200 mg 05/24/25 09:00 05/24/25 09:53 Metoprolol Succinate Ext Rel 100 Mg Tabcr PO 200 mg DAILY SONYA Administration Multivitamins Therapeutic 1 tablet 05/24/25 09:00 05/24/25 09:50 Multivitamins Therapeutic Tab (*Bkc) PO 1 tablet QAM SONYA Administration Nicotine 1 patch 05/23/25 20:55 05/24/25 09:54 Nicotine (*Pbkc) 21 Mg Patch TRANSDERM 1 patch DAILY SONYA Administration Oxymetazoline HCl 1 spray 05/23/25 22:53 05/23/25 23:42 Oxymetazoline Hcl 0.05% Jewel 15 Ml Btl (*Bkc) NASAL 1 spray Q12HR PRN Administration Congestion Pantoprazole Sodium 40 mg 05/24/25 09:00 05/24/25 09:54 Pantoprazole 40 Mg Tablet PO 40 mg QAM SONYA Administration Prednisone 40 mg 05/24/25 11:55 05/24/25 12:42 Prednisone 20 Mg Tablet PO 40 mg DAILY@0800 SONYA Administration Sodium Chloride 1 spray 05/23/25 21:38 05/23/25 22:24 Saline 0.65% Jewel Soln 44 Ml Btl NASAL 1 spray Q6HR PRN Administration Congestion Tamsulosin HCl 0.4 mg 05/23/25 21:50 05/24/25 20:54 Tamsulosin Hcl 0.4 Mg Capsule PO 0.4 mg Q12HR SONYA Administration Radiology Results: ITS Impressions Chest X-Ray 05/23/25 16:20 Impression: 1: Cardiomegaly with mild interstitial edema. Chest CTA 05/23/25 17:05 IMPRESSION: 1. Negative for pulmonary embolism. Large area of abnormal density within the left lower which may reflect a large infiltrate with associated lymphadenopathy however there are no significant air bronchograms and the possibility of an obstructing endobronchial lesion should be considered. Metastases are not excluded. Bronchoscopy is suggested Thyroid Ultrasound 05/24/25 12:29 IMPRESSION: 1. There is a 3.1 cm nodule in the left mid thyroid lobe. A fine needle aspiration is recommended. 2. There is a 5.6 cm mildly complicated cyst in the right thyroid lobe. 3. There is a 3 cm cyst in the left thyroid lobe. Labs Labs: Laboratory Results - last 24 hr 05/24/25 05/24/25 05/24/25 03:57 10:44 11:31 PT 15.7 H INR 1.2 APTT 30.0 C-Reactive Protein 0.5 Procalcitonin 0.3 Influenza A (RT-PCR) Negative Influenza B (RT-PCR) Negative RSV (RT-PCR) Negative SARS-CoV-2 RNA (RT-PCR) Negative Urine Pneumococcal Ag Cancelled Quality VTE Prophylaxis VTE prophylaxis: pharmacologic ordered
[2025-05-25 07:29] LABS: Hematocrit 45.1 % (42.0-52.0); Hemoglobin 15.5 g/dL (14.0-18.0); Immature Granulocyte Percent A 0.9 % (0-0.5); Lymphocytes Absolute Auto 1.58 K/mm3 (0.9-3.2); Mean Corpuscular HGB Conc 34.4 g/dl (32-36); Mean Corpuscular Hemoglobin 30.9 pg (26-34); Mean Corpuscular Volume 89.8 fl (80-100); Nucleated Red Blood Cells Absolute Auto 0.000 K/mm3 (0.0-0.012); Nucleated Red Blood Cells Perc 0.0 % (0.0-0.2); Platelet Count Result 247 k/mm3 (150-375); Red Blood Count 5.02 M/mm3 (4.6-6.20); White Blood Count 11.7 K/mm3 (4.5-10.0)
[2025-05-25 07:42] LABS: Alanine Aminotransferase 38 U/L (6-50); Albumin Level 3.4 g/dL (3.5-5.1); Alkaline Phosphatase 87 U/L (38-126); Anion Gap 8 mmol/L (4-12); Aspartate Amino Transferase 70 U/L (17-59); Bilirubin,Total 1.2 mg/dL (0.2-1.3); Blood Urea Nitrogen 12 mg/dL (9-20); Calcium 8.3 mg/dL (8.4-10.2); Carbon Dioxide 20 mmol/L (22-30); Chloride 97 mmol/L (98-107); Estimated CRCL calculation 180 ml/min; Estimated Glomerular Filt Rate > 60; Glucose 113 mg/dL (65-110); Potassium 3.7 mmol/L (3.4-5.0); Sodium 125 mmol/L (137-145); Total Protein 6.0 g/dL (6.3-8.2)
[2025-05-25] MEDS: METOPROLOL SUCCINATE EXT REL 100 MG TABCR 200 MG PO (08:25)
[2025-05-25] MEDS: NICOTINE (*PBKC) 21 MG PATCH 1 PATCH TRANSDERM (08:25)
[2025-05-25] MEDS: guaiFENesin 12 HR 600 MG TABCR 1200 MG PO ×2 (08:25→20:14)
[2025-05-25] MEDS: TAMSULOSIN HCL 0.4 MG CAPSULE PO ×2 (08:25→20:14)
[2025-05-25] MEDS: ISOSORBIDE MONONITRATE 30 MG TAB.ER.24H PO (08:25)
[2025-05-25] MEDS: PANTOPRAZOLE 40 MG TABLET PO (08:25)
[2025-05-25] MEDS: MULTIVITAMINS THERAPEUTIC TAB (*BKC) 1 TABLET PO (08:25)
[2025-05-25] MEDS: ESCITALOPRAM OXALATE 5 MG TABLET PO (08:25)
--- NOTE | 2025-05-25 11:19 | PM.PNPUL ---
Progress Note: A&P Assessment and Plan (1) Lung mass: Code(s): R91.8 - Other nonspecific abnormal finding of lung field Status: Acute Assessment and Plan: Patient with 43 pack year tobacco use currently smoking 10 cigarettes a day, 20 lb weight loss since January of 2025, hemoptysis, left lung and hilar mass with collapse of the left lower lobe, presents with 1 day of hemoptysis. plan: Concern for lung cancer. I discussed and reviewed the CT scan of the chest with the radiologist and given the proximal nature of his mass best diagnostic procedure is bronchoscopy. Patient currently has mild wheezing and will treat for COPD and pneumonia over the next 48 hours. We will then reassess for bronchoscopy with possible Louise needle biopsy of subcarinal lymph nodes on 05/27/2025. 05/25/2025. Overall the patient tells me he is improved. His cough has decreased in frequency. There is less blood in his phlegm. His last hemoptysis was last night. He has no rest shortness of breath. His dyspnea on exertion is the same. He denies fever, chills, rigors and has made no phlegm this morning. He is on room air with saturations 96%. His white blood cell count is 11.7, his creatinine is 0.58. Yesterday he was positive 920 mL, cumulative he is positive 1.6 L since admission. His weight is 162.3 today. Plan: patient is improving and if he remains clinically stable will consider bronchoscopy on 05/27/2025. Discussed with Dr. Jose, will follow with you. (2) Hemoptysis: Code(s): R04.2 - Hemoptysis Status: Acute Assessment and Plan: Patient with a history of peripheral arterial disease status post stent to the left lower extremity in 2022 on Eliquis 5 p.o. b.i.d., left lung and hilar mass with collapse of the left lower lobe, 43 pack year tobacco use currently smoking 10 cigarettes a day, presents with 1 day of hemoptysis. etiology of patient's hemoptysis includes lung cancer, pneumonia, tracheobronchitis. 05/24/25: plan: Eliquis currently on hold. Last dose given 01/20/2025 at 10:04 p.m.. Given his hemoptysis will need to hold anticoagulation at this time. Patient will need bronchoscopy with plan for 05/27/2025. Will also treat for pneumonia and currently on ceftriaxone, azithromycin, Flagyl all day 2. Will also treat for COPD exacerbation as below. 05/25/2025: The patient tells me that his hemoptysis decreased throughout the day yesterday but he still had flecks and streaks in his sputum last night. He has had no phlegm this morning. Plan: Once the patient is hemoptysis free for 24 hours will reassess for anticoagulation prior to his bronchoscopy. (3) COPD (chronic obstructive pulmonary disease): Qualifiers: COPD type: unspecified COPD Qualified Code(s): J44.9 - Chronic obstructive pulmonary disease, unspecified Code(s): J44.9 - Chronic obstructive pulmonary disease, unspecified Status: Chronic Assessment and Plan: GOLD grade 2 group E COPD Regarding his COPD the patient was diagnosed within the last few months. He smoked tobacco from age 22 to current at 1 pack per day for total of 43 pack years. Currently smoking 10 cigarettes a day. His exposed to secondhand smoke from his father but none since. PFTs on 05/09/2025 demonstrate a moderate obstructive abnormality with a mild restrictive abnormality resulting in a moderately severe decrease in his FEV1 at 57%. FEV1: FVC ratio 60%, moderately decreased DLCO that corrects when adjusted for alveolar volume. He denies vaping or illicit drug use. 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 He denies sand blasting, welding, professional painting, coal mining, construction work. He noticed dyspnea on exertion 3-4 years ago that has gotten progressively worse. One year ago he could walk 3/4 of a block. Recently he can walk 1/2 a block. He had no chronic cough or phlegm production until he developed pneumonia in January of 2025. currently patient has increased phlegm production, mild wheezes, increased shortness of breath. Plan: I will treat him for COPD exacerbation. he has very faint expiratory wheezes and I will change his Solu-Medrol to prednisone 40 mg p.o. q.day, continue DuoNebs q.4 hours, I will discontinue Daliresp as only been on this 3 days. I will continue guaifenesin 1200 mg p.o. q.12 hours. I will treat for possible bacterial infection with ceftriaxone, azithromycin and Flagyl, all day 2. I will send a COVID, influenza, RSV RT PCR assay, respiratory pathogen panel, urine for Legionella antigen, urine for pneumococcal antigen and mycoplasma serum IgM. 05/25/25: Patient has no wheezes today. Patient says the DuoNeb during the middle the night through his machine aggravated his breathing. COVID influenza and RSV RT PCR assay negative. Plan: Prednisone 40 mg p.o. q.day, day 3 steroids. DuoNebs q.4 hours while awake. Guaifenesin 1200 p.o. q.12 hours. Continue ceftriaxone azithromycin and Flagyl all day 3. Respiratory pathogen panel, serum mycoplasma IgM, urine Legionella antigen and urine pneumococcal antigen pending. (4) LÓPEZ (obstructive sleep apnea): Code(s): G47.33 - Obstructive sleep apnea (adult) (pediatric) Status: Chronic Assessment and Plan: Patient diagnosed with obstructive sleep apnea with a CPAP titration on 06/06/2017 and a pressure of 11 with nasal pillows to control his apnea events and hypoxemia. One year ago he increased his machine to 11.5 and he increased his to machine to 12 in January of 2025 with his respiratory issues. 05/24/2025: Patient felt he was too unstable to use his home pulse CPAP 12 laast night. Plan: Patient with active hemoptysis, wheezing at this time will hold off on his home CPAP unit. When she is more stable we can initiate CPAP. 05/25/2025: Patient told me he tolerated his home CPAP with pressure of 11 but then increased to 211.5 and did well on these settings. Plan: Continue home CPAP pressure is 11.5. (5) Smoking: Code(s): F17.200 - Nicotine dependence, unspecified, uncomplicated Status: Acute Assessment and Plan: Patient with a 43 pack year tobacco use currently smoking 10 cigarettes a day. 05/24/2025: We briefly talked about tobacco cessation and he understands the importance of tobacco cessation. Subjective Date/time seen: 05/25/25 11:19 Interval history: 05/24/2025: This is a new pulmonary consult for hemoptysis with lung mass. 65-year-old with a history of hypertension, atrial fibrillation, peripheral arterial disease status post left mechanical thrombectomy and balloon Keenan GGO plasty and stenting to the left popliteal artery, left posterior tibial artery and left tibioperoneal trunk on 10/22/2022 on Eliquis 5 PO BID thereafter, morbid obesity with LÓPEZ on CPAP 11, tobacco use and GOLD grade 2 group E COPD. Regarding his COPD the patient was diagnosed within the last few months. He smoked tobacco from age 22 to current at 1 pack per day for total of 43 pack years. Currently smoking 10 cigarettes a day. His exposed to secondhand smoke from his father but none since. PFTs on 05/09/2025 demonstrate a moderate obstructive abnormality with a mild restrictive abnormality resulting in a moderately severe decrease in his FEV1 at 57%. FEV1: FVC ratio 60%, moderately decreased DLCO that corrects when adjusted for alveolar volume. He denies vaping or illicit drug use. 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 He denies sand blasting, welding, professional painting, coal mining, construction work. He noticed dyspnea on exertion 3-4 years ago that has gotten progressively worse. One year ago he could walk 3/4 of a block. Recently he can walk 1/2 a block. He had no chronic cough or phlegm production until he developed pneumonia in January of 2025. Regarding his obstructive sleep apnea he had a CPAP titration on 06/06/2017 with a pressure of 11 controlling his oxygen and obstructive events. He does not have a [employer] and purchased his machine. One year ago he increased his pressure to 11.5. Since January of 2025 he increased his pressure to 12. He does not routinely check his downloads. Patient had a history of atrial fibrillation but did not require Eliquis until he had a left lower leg arterial thrombus on 10/21/2022 and was started on Eliquis at that time. In January of 2025 the patient developed fever, cough, chills, sinus congestion, shortness of breath, increased phlegm production and wheezing. He saw his PCP who diagnosed him with a pneumonia and treated him with antibiotics and steroids for 7 days. He got better over the next week back to 50-60% of his baseline. Off of these medicines for 1 week he got worse and worse prescribed antibiotics and steroids and he says he got 30-40% better. Since then he has had good days and bad days. On a good day he feels the same as he did prior to his pneumonia in . On a bad day he produces thick white to clear phlegm 10-15 times a day has worsening shortness of breath. 05/14/2025: CT scan Report of the chest to evaluate his aorta which was dictated on 05/21/2025. No comparison. Left hilar mass with complete collapse of the left lower lobe shift to the mediastinum to the left, mild centrilobular emphysema, multiple enlarged mediastinal and hilar lymph nodes. 05/21/2025 the patient was at his baseline with average amount of phlegm production, shortness of breath and dyspnea on exertion. On 05/22/2025 the patient took a sleeping pill and was anxious because he was told that his CT scan of the chest had a lung mass. He slept well but when he woke up on 05/23/2025 he had coughing paroxysms and the phlegm had blood. The blood ranged from flex, to streaks, to what sounds like veda blood clots and he coughed up blood to 30 times. 05/23/25: Patient presented to the emergency department with blood pressure 95/58, heart rate 78, respirations 24, room air saturations 96%. He had mild inspiratory wheezes. His white blood cell count was 8.8, his creatinine was 0.65, eosinophils 1.2%. BNP 807, troponin negative, INR 1.2, CT angiogram of the chest showed no PE, left lower lobe mass with extension to hilum with collapse of the left lower lobe, and large mediastinal and hilar lymphadenopathy. I was contacted by the emergency department we discussed the case and I instructed them to discontinue his Eliquis, initiate ceftriaxone, azithromycin and Flagyl. Initiate Solu-Medrol 40 q.6 and DuoNebs q.4 hours and guaifenesin 1200 p.o. b.i.d.. Plan was to leave patient NPO to be evaluated on 05/24/2025. 05/24/2025: Overall the patient states that his breathing is improved. He denies fever, chills, rigors or diaphoresis. He thinks that his hemoptysis is better. I asked him to expectorate and he had phlegm with flex and 1 streak of blood. He is afebrile. Patient was on room air with saturations 96%. White blood cell count 6.2, creatinine 0.65. 05/25/2025. Overall the patient tells me he is improved. His cough has decreased in frequency. There is less blood in his phlegm. His last hemoptysis was last night. He has no rest shortness of breath. His dyspnea on exertion is the same. He denies fever, chills, rigors and has made no phlegm this morning. He is on room air with saturations 96%. His white blood cell count is 11.7, his creatinine is 0.58. Yesterday he was positive 920 mL, cumulative he is positive 1.6 L since admission. His weight is 162.3 today. DATA: 05/23/25: EXAMINATION: CTA chest PE protocol, 05/23/2025 16:50 CDT HISTORY: hemoptysis COMPARISON: No comparisons available. FINDINGS: No significant coronary calcification is present ([id number]) LUNGS: The contrast bolus is adequate, there is no pulmonary embolism identified. No tracheomalacia. No bronchiectasis. There is a large focus of abnormal density in the left lower lobe with no significant air bronchograms appreciated and occlusion of the bronchus in this location. Minimal emphysematous changes. No bullous formation. Minimal pulmonary fibrotic changes. No significant honeycombing is identified. There is volume loss in the left lung with mediastinal shift to the left. Scattered bilateral punctate calcified granulomas. HEART AND PERICARDIUM: Mild cardiomegaly. Trace pericardial effusion. AORTA: Normal caliber aorta.. PULMONARY ARTERIES: No pulmonary embolism ADENOPATHY/MEDIASTINUM: There are multiple enlarged lymph nodes within the mediastinum and the kathia the largest in the subcarinal space measuring 4 x 3.5 cm. LIMITED VIEWS OF THE ABDOMEN: Partially imaged large bilateral renal cysts the largest on the right side 8 x 6 cm incompletely evaluated, renal ultrasound is suggested. Minimal cholelithiasis. OSSEOUS STRUCTURES: No sclerotic or lytic lesions. No acute rib fractures. OVERLYING SOFT TISSUES: Unremarkable. THYROID: There are large cystic appearing bilateral thyroid nodules incompletely evaluated the largest on the right side 5 x 6 cm, ultrasound is recommended. IMPRESSION: 1. Negative for pulmonary embolism. Large area of abnormal density within the left lower which may reflect a large infiltrate with associated lymphadenopathy however there are no significant air bronchograms and the possibility of an obstructing endobronchial lesion should be considered. Metastases are not excluded. Bronchoscopy is suggested 05/14/2025: Dictated report on 05/21/2025 ( No images): CTA chest with and without contrast. Clinical data concern for enlarged aorta. Findings: There are multiple enlarged mediastinal and bilateral hilar lymph nodes. The lung windows demonstrate complete collapse of the left lower lobe. There is right to left mediastinal shift. There appears to be a left hilar mass that may extend into the distal left mainstem bronchus. There is mild centrilobular emphysema there are no suspicious pulmonary nodules throughout the aerated portions of the lung. Impression: There appears to be left hilar mass that extends into the distal left mainstem bronchus. This is concerning for primary bronchogenic carcinoma. There is associated complete collapse of the left lower lobe. Recommend further evaluation with bronchoscopy. 2. There are multiple enlarged mediastinal bilateral hilar lymph nodes, likely representing metastatic lymphadenopathy. PET-CT scan may provide additional information. 3. Diffuse enlargement of the thyroid gland. Recommend further evaluation with dedicated thyroid sonogram. 4. Mild cardiomegaly. There is diffuse coronary Atherosclerotic disease. 05/09/2025: This is a pulmonary function test with spirometry, plethysmography and diffusing capacity. The test was performed and results interpreted in accordance with the 2019 and 2005 ATS/ERS Task Force guidelines respectively using the Global Lung Function Initiative-2012 reference equations. Patient demonstrated good effort and cooperation. Reproducibility criteria were met. The quality of the spirometry maneuver was Grade A. Findings: Spirometry: There is decreased maximal expiratory airflow at all lung volumes with a concave expiratory flow tracing. The contour the inspiratory flow tracing is normal. The FVC is 3.83 L, 72% predicted. The FEV1 is 2.31 L, 57% predicted. The FEV1: FVC ratio is 60%. Plethysmography: The total lung capacity is 5.77 L, 72% predicted. The functional residual capacity is 3.26 L, 76% predicted. The residual volume is 1.70 L, 65% predicted. Diffusing capacity: The diffusing capacity unadjusted for hemoglobin and carboxyhemoglobin is 17.3, 59% predicted. The diffusing capacity adjusted for alveolar volume is 3.80, 99% predicted. Impression: There is a combined obstructive and restrictive ventilatory abnormality. There are no guidelines to assign the severity of obstruction and restriction with a combined abnormality. In my opinion, given the moderately concave expiratory flow tracing, mildly decreased FEV1: FVC ratio and mild restrictive abnormality I would state there is a moderate obstructive abnormality and a mild restrictive abnormality resulting in a moderately severe decrease in the FEV1. The diffusing capacity unadjusted for hemoglobin and carboxyhemoglobin is moderately decreased and normalizes when adjusted for alveolar volume. There are no prior studies for comparison 04/25/2025: Echocardiogram report from [facility]: Conclusions: 1. Mild concentric hypertrophy with normal LV size and low normal function with EF 50-55%. RV appears to have good function from subcostal view. Both atria are dilated. Mild degenerative alveolar changes. Mitral valve: Posterior calcification, valve opens well. I disagree with mean gradient measurement. Aortic valve is trileaflet with sclerosis and mildly elevated peak velocity. There is mild to moderate AI. Aortic root is 4.2 cm. Ascending aorta 4.0 cm. Tricuspid valve: The estimated RVSP is 23. 03/05/2025: Clinical Indication: Pneumonia PA and lateral views of the chest: Comparison: 05/25/2017 Findings: There is central congestive change and possible minimal bibasilar pulmonary edema. Cardiomediastinal silhouette is within normal limits. Bones and soft tissues are unremarkable. Impression: Central congestive change and possible minimal bibasilar pulmonary edema. 06/02/2017: CPAP titration: DATE OF STUDY: June 02, 2017. The patient is a 57-year-old man, 76 inches in height, weighing 340 pounds with a body mass index of 41.4. His last polysomnogram that I have here was dated August 05, 2003, and it was a split night polysomnogram then. The patient was titrated with CPAP from 5 to 10 cm of water and appeared to have optimum level achieved at 9 cm of water. The patient is now back for CPAP retitration. DIAGNOSTIC IMPRESSION: Adequate titration of CPAP to a final pressure of 11 cm of water was noted with correction of respiratory events. Oxygen saturations also stabilized. Sleep efficiency was very good at that level of CPAP. The patient spent the entire time in the supine position at that level of CPAP. We will recommend CPAP at 11 cm of water with a heated humidifier for added comfort. The patient was titrated with his own medium Breeze nasal pillow mask Review of Systems Constitutional: Constitutional: Reports no additional constitutional complaints Eyes: Eyes: Reports no additional eye complaints ENT: Reports system reviewed and no additional complaints, except as documented Cardiovascular: Cardiovascular: Reports no additional cardiovascular complaints Respiratory: Respiratory: Reports no additional respiratory complaints Gastrointestinal: Gastrointestinal: Reports no additional gastrointestinal complaints Musculoskeletal: Musculoskeletal: Reports no additional musculoskeletal complaints Neurologic: Reports system reviewed and no additional complaints, except as documented Psychiatric: Psychiatric: Reports no additional psychiatric complaints Endocrine: Endocrine: Reports no additional endocrine complaints Hematologic/Lymphatic: Hematologic/Lymphatic: Reports no additional hematologic/lymphatic complaints Allergic/Immunologic: Allergic/Immunologic: Reports no additional allergic/immunologic complaints Exam Const: General: cooperative and comfortable Orientation/consciousness: oriented to person, oriented to place and oriented to time Other: obese in distress on room air HENMT: Head: normal to inspection Ears: hearing grossly normal bilaterally Eyes: General: appearance normal, both eyes and all related structures Neck: Neck: normal visual inspection Chest: Chest palpation & inspection: normal inspection of the chest Resp: Effort & Inspection: normal respiratory effort and able to speak in complete sentences Auscultation: no crackles, no rales, no rhonchi, no wheezes and diminished lung sounds Other: No wheezes today. Diminished sounds left lung base Cardio: Jugular venous distension: no JVD GI: Inspection: normal to inspection Skin: General skin exam: normal color Neuro: General: oriented to person, oriented to place and oriented to time Extrem: General: normal to inspection and no edema Psych: Appearance: grossly normal Objective Data Vital Signs Vital Signs: Vital Signs - 24 hr 05/24/25 12:00 05/24/25 13:11 05/24/25 13:17 Temperature Pulse Rate 89 78 84 Respiratory Rate 16 16 Blood Pressure Pulse Oximetry Oxygen Delivery 05/24/25 14:00 05/24/25 15:45 05/24/25 15:52 Temperature 36.4 C L Pulse Rate 90 80 86 Respiratory Rate 18 16 16 Blood Pressure 127/58 L Pulse Oximetry 96 Oxygen Delivery 05/24/25 16:00 05/24/25 19:34 05/24/25 19:42 Temperature Pulse Rate 90 84 83 Respiratory Rate 16 16 Blood Pressure Pulse Oximetry Oxygen Delivery 05/24/25 19:55 05/24/25 20:00 05/24/25 20:44 Temperature 36.4 C Pulse Rate 83 80 Respiratory Rate 14 Blood Pressure 124/63 Pulse Oximetry 97 Oxygen Delivery Room Air 05/24/25 23:37 05/24/25 23:45 05/24/25 23:47 Temperature Pulse Rate 86 88 Respiratory Rate 20 18 Blood Pressure Pulse Oximetry Oxygen Delivery CPAP 05/25/25 00:00 05/25/25 04:00 05/25/25 04:02 Temperature Pulse Rate 84 68 80 Respiratory Rate 16 Blood Pressure Pulse Oximetry Oxygen Delivery 05/25/25 04:10 05/25/25 04:10 05/25/25 04:15 Temperature 36.4 C Pulse Rate 84 86 Respiratory Rate 18 18 Blood Pressure 123/81 Pulse Oximetry 94 Oxygen Delivery CPAP 05/25/25 07:58 05/25/25 08:00 05/25/25 08:02 Temperature Pulse Rate 84 75 90 Respiratory Rate 20 20 Blood Pressure Pulse Oximetry Oxygen Delivery 05/25/25 08:24 05/25/25 08:25 05/25/25 11:09 Temperature Pulse Rate 81 81 94 Respiratory Rate 22 H Blood Pressure 116/56 L Pulse Oximetry 96 Oxygen Delivery 05/25/25 11:11 Temperature Pulse Rate 90 Respiratory Rate 22 H Blood Pressure Pulse Oximetry Oxygen Delivery Intake/Output Intake/Output: Intake & Output 05/22/25 05/23/25 05/24/25 05/25/25 23:59 23:59 23:59 23:59 Intake Total 100 1320 880 Output Total 400 Balance 100 920 880 Meds/Results Medications: Active Medications Generic Name Dose Route Start Last Admin Trade Name Freq PRN Reason Stop Dose Admin Acetaminophen 500 mg 05/24/25 08:49 05/25/25 00:53 Acetaminophen 500 Mg Tablet PO 500 mg Q4H PRN Administration Mild Pain (1-3) or Fever Albuterol/Ipratropium 3 ml 05/24/25 08:55 Ipratropium 0.5 Mg/Albuterol Sulfate 2.5 Mg Ampul.Neb 3 Ml INHALATION Q6HR PRN Shortness Of Breath Albuterol/Ipratropium 3 ml 05/24/25 12:00 05/25/25 11:09 Ipratropium 0.5 Mg/Albuterol Sulfate 2.5 Mg Ampul.Neb 3 Ml INHALATION 3 ml Q4HRT SONYA Administration Amlodipine Besylate 10 mg 05/24/25 09:00 05/25/25 08:24 Amlodipine Besylate 10 Mg Tablet PO 10 mg DAILY SONYA Administration Atorvastatin Calcium 40 mg 05/23/25 21:45 05/24/25 20:54 Atorvastatin 40 Mg Tablet PO 40 mg HS SONYA Administration Escitalopram Oxalate 5 mg 05/24/25 09:00 05/25/25 08:25 Escitalopram Oxalate 5 Mg Tablet PO 5 mg DAILY SONYA Administration Guaifenesin 1,200 mg 05/23/25 21:00 05/25/25 08:25 Guaifenesin 12 Hr 600 Mg Tabcr PO 1,200 mg Q12HR SONYA Administration Hydralazine HCl 50 mg 05/23/25 22:00 05/25/25 06:39 Hydralazine Hcl 50 Mg Tablet PO 50 mg Q8HR SONYA Administration Metronidazole 500 mg in 100 mls @ 100 mls/hr 05/23/25 22:00 05/25/25 06:39 Flagyl 500 Mg/Iso Soln 100 Ml IVPB 100 mls/hr Q8H SONYA Administration Ceftriaxone Sodium 1 gm/ 50 mls @ 100 mls/hr 05/24/25 21:00 05/24/25 21:32 Sodium Chloride IVPB Infused Q24H SONYA Infusion Azithromycin 500 mg/ Sodium 250 mls @ 250 mls/hr 05/23/25 23:00 05/25/25 00:46 Chloride IVPB Infused Q24H SONYA Infusion Isosorbide Mononitrate 30 mg 05/24/25 09:00 05/25/25 08:25 Isosorbide Mononitrate 30 Mg Tab.Er.24h PO 30 mg DAILY SONYA Administration Lisinopril 20 mg 05/24/25 09:00 05/25/25 08:25 Lisinopril 20 Mg Tablet PO 20 mg QAM SONYA Administration Lorazepam 0.5 mg 05/23/25 21:35 05/24/25 02:03 Lorazepam (*Crx) 0.5 Mg Tablet PO 0.5 mg BID PRN Administration Anxiety Metoprolol Succinate 200 mg 05/24/25 09:00 05/25/25 08:25 Metoprolol Succinate Ext Rel 100 Mg Tabcr PO 200 mg DAILY SONYA Administration Multivitamins Therapeutic 1 tablet 05/24/25 09:00 05/25/25 08:25 Multivitamins Therapeutic Tab (*Bkc) PO 1 tablet QAM SONYA Administration Nicotine 1 patch 05/23/25 20:55 05/25/25 08:25 Nicotine (*Pbkc) 21 Mg Patch TRANSDERM 1 patch DAILY SONYA Administration Oxymetazoline HCl 1 spray 05/23/25 22:53 05/23/25 23:42 Oxymetazoline Hcl 0.05% Jewel 15 Ml Btl (*Bkc) NASAL 1 spray Q12HR PRN Administration Congestion Pantoprazole Sodium 40 mg 05/24/25 09:00 05/25/25 08:25 Pantoprazole 40 Mg Tablet PO 40 mg QAM SONYA Administration Prednisone 40 mg 05/24/25 11:55 05/25/25 08:24 Prednisone 20 Mg Tablet PO 40 mg DAILY@0800 SONYA Administration Sodium Chloride 1 spray 05/23/25 21:38 05/23/25 22:24 Saline 0.65% Jewel Soln 44 Ml Btl NASAL 1 spray Q6HR PRN Administration Congestion Tamsulosin HCl 0.4 mg 05/23/25 21:50 05/25/25 08:25 Tamsulosin Hcl 0.4 Mg Capsule PO 0.4 mg Q12HR SONYA Administration Radiology Results: ITS Impressions Chest X-Ray 05/23/25 16:20 Impression: 1: Cardiomegaly with mild interstitial edema. Chest CTA 05/23/25 17:05 IMPRESSION: 1. Negative for pulmonary embolism. Large area of abnormal density within the left lower which may reflect a large infiltrate with associated lymphadenopathy however there are no significant air bronchograms and the possibility of an obstructing endobronchial lesion should be considered. Metastases are not excluded. Bronchoscopy is suggested Thyroid Ultrasound 05/24/25 12:29 IMPRESSION: 1. There is a 3.1 cm nodule in the left mid thyroid lobe. A fine needle aspiration is recommended. 2. There is a 5.6 cm mildly complicated cyst in the right thyroid lobe. 3. There is a 3 cm cyst in the left thyroid lobe. Labs Labs: Laboratory Results - last 24 hr 05/24/25 05/24/25 05/25/25 10:44 11:31 04:41 WBC 11.7 H RBC 5.02 Hgb 15.5 Hct 45.1 MCV 89.8 MCH 30.9 MCHC 34.4 RDW 13.5 Plt Count 247 MPV 9.7 Immature Gran % (Auto) 0.9 H Neut % (Auto) 74.9 H Lymph % (Auto) 13.5 L [place] % (Auto) 10.6 H Eos % (Auto) 0.0 Baso % (Auto) 0.1 L Lymph # (Auto) 1.58 [place] # (Auto) 1.2 H Eos # (Auto) 0.0 Baso # (Auto) 0.0 Abs Immat Gran (auto) 0.10 H Absolute Neuts (auto) 8.8 H Absolute Nucleated RBC 0.000 Nucleated RBC % 0.0 Sodium 125 L Potassium 3.7 Chloride 97 L Carbon Dioxide 20 L Anion Gap 8 BUN 12 Creatinine 0.58 L Estim Creat Clear Calc 180 Estimated GFR > 60 Glucose 113 H Calcium 8.3 L Total Bilirubin 1.2 AST 70 H ALT 38 Alkaline Phosphatase 87 Total Protein 6.0 L Albumin 3.4 L Influenza A (RT-PCR) Negative Influenza B (RT-PCR) Negative RSV (RT-PCR) Negative SARS-CoV-2 RNA (RT-PCR) Negative Urine Pneumococcal Ag Cancelled
[2025-05-25] MEDS: SODIUM CHLORIDE 0.9% IV 1,000 ML 100 ML IV CONT (13:41)
[2025-05-25 14:18] LABS: Thyroid Stimulating Hormone Reflex 0.754 uIU/mL (0.465-4.68)
[2025-05-25] MEDS: ATORVASTATIN 40 MG TABLET PO (20:14)
[2025-05-25] MEDS: cefTRIAXone 1 GM in SODIUM CHLORIDE 0.9% IV 50 ML 100 ML IVPB (20:15)
[2025-05-25] MEDS: AZITHROMYCIN IV 500 MG in SODIUM CHLORIDE 0.9% IV 250 ML IVPB (22:42)
[2025-05-26] VITALS (20 sets, daily range): BP systolic 126–141; BP diastolic 65–74; PULSE 69–104; RESP 14–20; TEMP 36.2–36.8; O2SAT 95–97
[2025-05-26] MEDS: IPRATROPIUM 0.5 MG/ALBUTEROL SULFATE 2.5 MG AMPUL.NEB 3 ML INHALATION ×5 (05:38→19:39)
[2025-05-26 05:45] LABS: Hematocrit 45.8 % (42.0-52.0); Hemoglobin 15.6 g/dL (14.0-18.0); Immature Granulocyte Percent A 1.1 % (0-0.5); Lymphocytes Absolute Auto 3.51 K/mm3 (0.9-3.2); Mean Corpuscular HGB Conc 34.1 g/dl (32-36); Mean Corpuscular Hemoglobin 31.1 pg (26-34); Mean Corpuscular Volume 91.4 fl (80-100); Nucleated Red Blood Cells Absolute Auto 0.000 K/mm3 (0.0-0.012); Nucleated Red Blood Cells Perc 0.0 % (0.0-0.2); Platelet Count Result 221 k/mm3 (150-375); Red Blood Count 5.01 M/mm3 (4.6-6.20); White Blood Count 9.5 K/mm3 (4.5-10.0)
[2025-05-26 06:03] LABS: Alanine Aminotransferase 41 U/L (6-50); Albumin Level 3.2 g/dL (3.5-5.1); Alkaline Phosphatase 77 U/L (38-126); Anion Gap 5 mmol/L (4-12); Aspartate Amino Transferase 47 U/L (17-59); Bilirubin,Total 1.4 mg/dL (0.2-1.3); Blood Urea Nitrogen 12 mg/dL (9-20); Calcium 7.9 mg/dL (8.4-10.2); Carbon Dioxide 25 mmol/L (22-30); Chloride 100 mmol/L (98-107); Estimated CRCL calculation 157 ml/min; Estimated Glomerular Filt Rate > 60; Glucose 88 mg/dL (65-110); Potassium 3.7 mmol/L (3.4-5.0); Sodium 130 mmol/L (137-145); Total Protein 5.6 g/dL (6.3-8.2)
[2025-05-26] MEDS: metroNIDAZOLE 500 MG/ISO 100ML 500 MG/100 ML BAG 100 MG IVPB ×3 (06:07→21:09)
--- NOTE | 2025-05-26 06:53 | P.PNIM_ITS ---
Progress Note: A&P Assessment and Plan (1) Lung mass: Code(s): R91.8 - Other nonspecific abnormal finding of lung field Status: Acute Assessment and Plan: * Chest CTA: Negative for pulmonary embolism. Large area of abnormal density within the left lower which may reflect a large infiltrate with associated lymphadenopathy however there are no significant air bronchograms and the possibility of an obstructing endobronchial lesion should be considered. Metastases are not excluded. Bronchoscopy is suggested * Mass present in KEIKO * NPO at [place]. * Trend labs and VS. * Orders per Dr. Krishna include: Continue Eliquis, Solumedrol 40 mg Q6 hrs, Duoneb Q4 hrs prn, Rocephin 1G daily, Azithromycin 500 mg IVPB Q24 hrs, Flagyl 500 mg IVPB Q8 hrs, and Guaifenesin BID. * Heme/onc consult - appreciate further recommendations * Consult Pulmonology * Potential Bronchoscopy w/Bx on 05/27 if patient continues to clinically improve (2) Hemoptysis: Code(s): R04.2 - Hemoptysis Status: Acute Assessment and Plan: * See above * History of chronic Eliquis use given peripheral artery disease status post stent to left lower extremity in 2022 * 43 pack year tobacco use, current cigarette smoker * Hold anticoagulation (3) COPD (chronic obstructive pulmonary disease): Qualifiers: COPD type: unspecified COPD Qualified Code(s): J44.9 - Chronic obstructive pulmonary disease, unspecified Code(s): J44.9 - Chronic obstructive pulmonary disease, unspecified Status: Chronic Assessment and Plan: * See #1 * Supplemental oxygen as needed. (4) Hyponatremia: Code(s): E87.1 - Hypo-osmolality and hyponatremia Status: Acute Assessment and Plan: * Uncertain etiology. Possible causes SIADH, Electrolyte shift from Lung mass, Dehydration * Collect urine and serum osmolalities, urine sodium * Normal renal function. * Normal saline at 100 ml/hr ordered. * Trend labs * 05/26: Na 125 -> 130. Asymptomatic, continue to rehydrate, urine studies still pending. * Fluid restriction held (5) Thyroid nodule: Code(s): E04.1 - Nontoxic single thyroid nodule Status: Acute Assessment and Plan: * Chest CTA: There are large cystic appearing bilateral thyroid nodules incompletely evaluated the largest on the right side 5 x 6 cm, ultrasound is recommended. * Thyroid US: * There is a 3.1 cm nodule in the left mid thyroid lobe. A fine needle aspiration is recommended. * There is a 5.6 cm mildly complicated cyst in the right thyroid lobe. * There is a 3 cm cyst in the left thyroid lobe. * TSH pending * Heme/onc consult given possible need for FNA - would need to wait until after bronchoscopy for this (6) Chronic atrial fibrillation: Code(s): I48.20 - Chronic atrial fibrillation, unspecified Status: Chronic Assessment and Plan: * Continue Eliquis therapy * Telemetry (7) Mixed hyperlipidemia: Code(s): E78.2 - Mixed hyperlipidemia Status: Chronic Assessment and Plan: * Heart Healthy diet w/NPO at [place]. * Continue statin once confirmed. (8) Essential hypertension: Code(s): I10 - Essential (primary) hypertension Status: Chronic Assessment and Plan: * BP currently stable w/SBP running low 100s-110/Diastolics of 60s * Monitor and trend. * Reorder home meds once they are confirmed and reviewed. * 116/56 (9) LÓPEZ (obstructive sleep apnea): Code(s): G47.33 - Obstructive sleep apnea (adult) (pediatric) Status: Chronic Assessment and Plan: * Home CPAP therapy. (10) Nicotine abuse: Code(s): Z72.0 - Tobacco use Status: Chronic Assessment and Plan: * 40+ Pack year smoker * Nicotine patch daily. * Counseled for the importance of smoking cessation in the current setting. Subjective Date/time seen: 05/26/25 06:53 Interval history: This is a 65 year old male pt with hx of group home smoking, A-fib on Eliquis, BPH, Obesity, HTN, HLD, Left popliteal artery occlusion, LÓPEZ and aortic valve insufficiency comes to the ER with complaints of having persistent SOB and today hemoptysis. 05/26/2025 Patient sitting at bedside during examination. Denies any chest pain, shortness of breath at rest, n/v or abd pain. Still has a slight cough - had 1 episode of hemoptysis this morning. Anticoagulation will be held for anticipated bronchoscopy tomorrow. otherwise doing well this morning, denies any chest pain, shortness a breath, nausea / vomiting or abdominal pain. Sodium increased to 130, will relieve fluid restriction Review of Systems Review of Systems: All systems reviewed & are unremarkable except as noted in HPI and below Exam Const: General: uncomfortable Other: Obese male pt sitting on stretcher at this time. He appears overall uncomfortable. HENMT: Mouth: Yes moist mucous membranes Eyes: General: appearance normal, both eyes and all related structures Neck: Neck: supple and no JVD Carotids: no bruits Lymphatic: lymphadenopathy not noted Chest: Other: Not tender to palpation Resp: Effort & Inspection: abnormal respiratory effort (Increased effort) Auscultation: rhonchi and wheezes Other: Abnormal lung sounds in all lobes with scattered rhonchi and wheezing, but decreased lung sounds KEIKO. Cardio: Rate: regular rate Rhythm: abnormal rhythm regularly irregular (Hx. A-fib) Heart sounds: no gallops, Murmur heart sound present and no rubs GI: Inspection: non-distended Auscultation: normal bowel sounds Skin: General skin exam: normal color, no rashes or lesions noted and no erythema Wounds: no wounds Neuro: Speech: normal speech Motor exam (neuro): 5/5 motor strength present throughout and Normal motor muscle tone present throughout Sensory Exam: normal sensation Extrem: General: normal to inspection, edema (trace BLE) and no pedal edema Psych: Mental Status: mental status grossly normal Affect: Anxious affect present Objective Data Vital Signs Vital Signs: Vital Signs - 24 hr 05/25/25 07:58 05/25/25 08:00 05/25/25 08:00 Temperature Pulse Rate 84 75 Respiratory Rate 20 Blood Pressure Pulse Oximetry Oxygen Delivery Room Air 05/25/25 08:02 05/25/25 08:24 05/25/25 08:25 Temperature Pulse Rate 90 81 81 Respiratory Rate 20 Blood Pressure 116/56 L Pulse Oximetry 96 Oxygen Delivery 05/25/25 11:09 05/25/25 11:11 05/25/25 12:00 Temperature Pulse Rate 94 90 95 Respiratory Rate 22 H 22 H Blood Pressure Pulse Oximetry Oxygen Delivery 05/25/25 14:00 05/25/25 16:00 05/25/25 16:30 Temperature 98.1 F Pulse Rate 86 89 90 Respiratory Rate 18 20 Blood Pressure 124/61 Pulse Oximetry 96 Oxygen Delivery 05/25/25 20:00 05/25/25 20:01 05/25/25 20:05 Temperature 97.7 F Pulse Rate 71 88 Respiratory Rate 18 Blood Pressure 125/61 Pulse Oximetry 96 Oxygen Delivery Room Air 05/25/25 20:27 05/25/25 20:37 05/26/25 00:00 Temperature Pulse Rate 85 85 69 Respiratory Rate 20 20 Blood Pressure Pulse Oximetry Oxygen Delivery 05/26/25 01:52 05/26/25 04:00 05/26/25 05:36 Temperature Pulse Rate 72 85 Respiratory Rate 20 Blood Pressure Pulse Oximetry Oxygen Delivery CPAP 05/26/25 05:42 05/26/25 05:45 Temperature 98.2 F Pulse Rate 76 85 Respiratory Rate 18 20 Blood Pressure 141/65 H Pulse Oximetry 97 Oxygen Delivery Intake/Output Intake/Output: Intake & Output 05/23/25 05/24/25 05/25/25 05/26/25 23:59 23:59 23:59 23:59 Intake Total 100 1320 2060 Output Total 400 175 Balance 918 526 0189 Meds/Results Medications: Active Medications Generic Name Dose Route Start Last Admin Trade Name Freq PRN Reason Stop Dose Admin Acetaminophen 500 mg 05/24/25 08:49 05/25/25 18:35 Acetaminophen 500 Mg Tablet PO 500 mg Q4H PRN Administration Mild Pain (1-3) or Fever Albuterol/Ipratropium 3 ml 05/24/25 08:55 05/26/25 05:38 Ipratropium 0.5 Mg/Albuterol Sulfate 2.5 Mg Ampul.Neb 3 Ml INHALATION 3 ml Q6HR PRN Administration Shortness Of Breath Albuterol/Ipratropium 3 ml 05/25/25 16:00 05/25/25 20:31 Ipratropium 0.5 Mg/Albuterol Sulfate 2.5 Mg Ampul.Neb 3 Ml INHALATION 3 ml [id number] SONYA Administration Amlodipine Besylate 10 mg 05/24/25 09:00 05/25/25 08:24 Amlodipine Besylate 10 Mg Tablet PO 10 mg DAILY SONYA Administration Atorvastatin Calcium 40 mg 05/23/25 21:45 05/25/25 20:14 Atorvastatin 40 Mg Tablet PO 40 mg HS SONYA Administration Escitalopram Oxalate 5 mg 05/24/25 09:00 05/25/25 08:25 Escitalopram Oxalate 5 Mg Tablet PO 5 mg DAILY SONYA Administration Guaifenesin 1,200 mg 05/23/25 21:00 05/25/25 20:14 Guaifenesin 12 Hr 600 Mg Tabcr PO 1,200 mg Q12HR SONYA Administration Hydralazine HCl 50 mg 05/23/25 22:00 05/26/25 06:07 Hydralazine Hcl 50 Mg Tablet PO 50 mg Q8HR SONYA Administration Metronidazole 500 mg in 100 mls @ 100 mls/hr 05/23/25 22:00 05/26/25 06:07 Flagyl 500 Mg/Iso Soln 100 Ml IVPB 100 mls/hr Q8H SONYA Administration Ceftriaxone Sodium 1 gm/ 50 mls @ 100 mls/hr 05/24/25 21:00 05/25/25 20:45 Sodium Chloride IVPB Infused Q24H SONYA Infusion Azithromycin 500 mg/ Sodium 250 mls @ 250 mls/hr 05/23/25 23:00 05/25/25 23:42 Chloride IVPB Infused Q24H SONYA Infusion Isosorbide Mononitrate 30 mg 05/24/25 09:00 05/25/25 08:25 Isosorbide Mononitrate 30 Mg Tab.Er.24h PO 30 mg DAILY SONYA Administration Lisinopril 20 mg 05/24/25 09:00 05/25/25 08:25 Lisinopril 20 Mg Tablet PO 20 mg QAM SONYA Administration Lorazepam 0.5 mg 05/23/25 21:35 05/24/25 02:03 Lorazepam (*Crx) 0.5 Mg Tablet PO 0.5 mg BID PRN Administration Anxiety Metoprolol Succinate 200 mg 05/24/25 09:00 05/25/25 08:25 Metoprolol Succinate Ext Rel 100 Mg Tabcr PO 200 mg DAILY SONYA Administration Multivitamins Therapeutic 1 tablet 05/24/25 09:00 05/25/25 08:25 Multivitamins Therapeutic Tab (*Bkc) PO 1 tablet QAM SONYA Administration Nicotine 1 patch 05/23/25 20:55 05/25/25 08:25 Nicotine (*Pbkc) 21 Mg Patch TRANSDERM 1 patch DAILY SONYA Administration Oxymetazoline HCl 1 spray 05/23/25 22:53 05/23/25 23:42 Oxymetazoline Hcl 0.05% Jewel 15 Ml Btl (*Bkc) NASAL 1 spray Q12HR PRN Administration Congestion Pantoprazole Sodium 40 mg 05/24/25 09:00 05/25/25 08:25 Pantoprazole 40 Mg Tablet PO 40 mg QAM SONYA Administration Prednisone 40 mg 05/24/25 11:55 05/25/25 08:24 Prednisone 20 Mg Tablet PO 40 mg DAILY@0800 SONYA Administration Sodium Chloride 1 spray 05/23/25 21:38 05/23/25 22:24 Saline 0.65% Jewel Soln 44 Ml Btl NASAL 1 spray Q6HR PRN Administration Congestion Tamsulosin HCl 0.4 mg 05/23/25 21:50 05/25/25 20:14 Tamsulosin Hcl 0.4 Mg Capsule PO 0.4 mg Q12HR SONYA Administration Radiology Results: ITS Impressions Chest CTA 05/23/25 17:05 IMPRESSION: 1. Negative for pulmonary embolism. Large area of abnormal density within the left lower which may reflect a large infiltrate with associated lymphadenopathy however there are no significant air bronchograms and the possibility of an obstructing endobronchial lesion should be considered. Metastases are not excluded. Bronchoscopy is suggested Thyroid Ultrasound 05/24/25 12:29 IMPRESSION: 1. There is a 3.1 cm nodule in the left mid thyroid lobe. A fine needle aspirat ion is recommended. 2. There is a 5.6 cm mildly complicated cyst in the right thyroid lobe. 3. There is a 3 cm cyst in the left thyroid lobe. Labs Labs: Laboratory Results - last 24 hr 05/24/25 05/25/25 05/26/25 10:06 04:41 04:58 WBC 11.7 H 9.5 RBC 5.02 5.01 Hgb 15.5 15.6 Hct 45.1 45.8 MCV 89.8 91.4 MCH 30.9 31.1 MCHC 34.4 34.1 RDW 13.5 13.8 Plt Count 247 221 MPV 9.7 9.7 Immature Gran % (Auto) 0.9 H 1.1 H Neut % (Auto) 74.9 H 49.9 Lymph % (Auto) 13.5 L 37.0 [place] % (Auto) 10.6 H 11.4 H Eos % (Auto) 0.0 0.2 Baso % (Auto) 0.1 L 0.4 Lymph # (Auto) 1.58 3.51 H [place] # (Auto) 1.2 H 1.1 H Eos # (Auto) 0.0 0.0 Baso # (Auto) 0.0 0.0 Abs Immat Gran (auto) 0.10 H 0.10 H Absolute Neuts (auto) 8.8 H 4.7 Absolute Nucleated RBC 0.000 0.000 Nucleated RBC % 0.0 0.0 Sodium 125 L 130 L Potassium 3.7 3.7 Chloride 97 L 100 Carbon Dioxide 20 L 25 Anion Gap 8 5 BUN 12 12 Creatinine 0.58 L 0.68 L Estim Creat Clear Calc 180 157 Estimated GFR > 60 > 60 Glucose 113 H 88 Calcium 8.3 L 7.9 L Total Bilirubin 1.2 1.4 H AST 70 H 47 ALT 38 41 Alkaline Phosphatase 87 77 Total Protein 6.0 L 5.6 L Albumin 3.4 L 3.2 L TSH (Reflex) 0.754 Chlamy pneumoniae PCR Not detected Adenovirus (PCR) Not detected B. pertussis DNA (PCR) Not detected B.parapertussis DNA PCR Not detected Coronavirus OC43 (PCR) Not detected Coronavirus HKU1 (PCR) Not detected Coronavirus 229E (PCR) Not detected Coronavirus NL63 (PCR) Not detected Human Metapneumovir PCR Not detected Influenza A (H1) PCR Not detected Influ A (H1/09) PCR Not detected Influenza A (H3) PCR Not detected Influenza Type A (PCR) Not detected Influenza Type B (PCR) Not detected M. pneumoniae (PCR) Not detected Parainfluenza 1 (PCR) Not detected Parainfluenza 2 (PCR) Not detected Parainfluenza 3 (PCR) Not detected Parainfluenza 4 (PCR) Not detected RSV (PCR) Not detected Entero/Rhino (PCR) Not detected SARS-CoV-2 (PCR) Not detected Quality VTE Prophylaxis VTE prophylaxis: pharmacologic ordered
[2025-05-26] MEDS: METOPROLOL SUCCINATE EXT REL 100 MG TABCR 200 MG PO (08:43)
[2025-05-26] MEDS: ISOSORBIDE MONONITRATE 30 MG TAB.ER.24H PO (08:43)
[2025-05-26] MEDS: PANTOPRAZOLE 40 MG TABLET PO (08:45)
[2025-05-26] MEDS: TAMSULOSIN HCL 0.4 MG CAPSULE PO ×2 (08:45→20:22)
[2025-05-26] MEDS: MULTIVITAMINS THERAPEUTIC TAB (*BKC) 1 TABLET PO (08:45)
[2025-05-26] MEDS: ESCITALOPRAM OXALATE 5 MG TABLET PO (08:45)
[2025-05-26] MEDS: guaiFENesin 12 HR 600 MG TABCR 1200 MG PO ×2 (08:45→20:22)
[2025-05-26] MEDS: NICOTINE (*PBKC) 21 MG PATCH 1 PATCH TRANSDERM (08:53)
--- NOTE | 2025-05-26 11:30 | PM.PNPUL ---
Progress Note: A&P Assessment and Plan (1) Lung mass: Code(s): R91.8 - Other nonspecific abnormal finding of lung field Status: Acute Assessment and Plan: Patient with 43 pack year tobacco use currently smoking 10 cigarettes a day, 20 lb weight loss since January of 2025, hemoptysis, left lung and hilar mass with collapse of the left lower lobe, presents with 1 day of hemoptysis. plan: Concern for lung cancer. I discussed and reviewed the CT scan of the chest with the radiologist and given the proximal nature of his mass best diagnostic procedure is bronchoscopy. Patient currently has mild wheezing and will treat for COPD and pneumonia over the next 48 hours. We will then reassess for bronchoscopy with possible Louise needle biopsy of subcarinal lymph nodes on 05/27/2025. 05/25/2025. Overall the patient tells me he is improved. His cough has decreased in frequency. There is less blood in his phlegm. His last hemoptysis was last night. He has no rest shortness of breath. His dyspnea on exertion is the same. He denies fever, chills, rigors and has made no phlegm this morning. He is on room air with saturations 96%. His white blood cell count is 11.7, his creatinine is 0.58. Yesterday he was positive 920 mL, cumulative he is positive 1.6 L since admission. His weight is 162.3 today. Plan: patient is improving and if he remains clinically stable will consider bronchoscopy on 05/27/2025. 05/26/25: overall the patient tells me he has improved. He is breathing normally at rest. His dyspnea on exertion is better. He overall he states he has 50-60% back to his normal. Patient is on room air with saturations 98%. White blood cell count 9.6, hemoglobin 15.6, creatinine 0.68. His weight today is 164. His chest x-ray shows retrocardiac consolidation with no change from 05/23/2025. Last night he wore his home CPAP on room air with a pressure of 11 and half that he increase to 12 after he got up and went to the bathroom. He said he slept well. Plan: Patient is clinically stable and will perform bronchoscopy on 05/27/2025. The patient tells me that he had general anesthesia and was concerned that succinylcholine caused him to have severe muscle aches after 48 hours. Will make anesthesia aware. Discussed with Dr. Jose, will follow with you. (2) Hemoptysis: Code(s): R04.2 - Hemoptysis Status: Acute Assessment and Plan: Patient with a history of peripheral arterial disease status post stent to the left lower extremity in 2022 on Eliquis 5 p.o. b.i.d., left lung and hilar mass with collapse of the left lower lobe, 43 pack year tobacco use currently smoking 10 cigarettes a day, presents with 1 day of hemoptysis. etiology of patient's hemoptysis includes lung cancer, pneumonia, tracheobronchitis. 05/24/25: plan: Eliquis currently on hold. Last dose given 01/20/2025 at 10:04 p.m.. Given his hemoptysis will need to hold anticoagulation at this time. Patient will need bronchoscopy with plan for 05/27/2025. Will also treat for pneumonia and currently on ceftriaxone, azithromycin, Flagyl all day 2. Will also treat for COPD exacerbation as below. 05/25/2025: The patient tells me that his hemoptysis decreased throughout the day yesterday but he still had flecks and streaks in his sputum last night. He has had no phlegm this morning. Plan: Once the patient is hemoptysis free for 24 hours will reassess for anticoagulation prior to his bronchoscopy. 05/26/25: He has clear phlegm and last night had 1 episode of hemoptysis with a spot the size of his pinky tip. This morning he had dark red blood in the sputum the same amount. Plan: Patient is still with hemoptysis and I will not initiate anticoagulation at this day. 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 (3) COPD (chronic obstructive pulmonary disease): Qualifiers: COPD type: unspecified COPD Qualified Code(s): J44.9 - Chronic obstructive pulmonary disease, unspecified Code(s): J44.9 - Chronic obstructive pulmonary disease, unspecified Status: Chronic Assessment and Plan: GOLD grade 2 group E COPD Regarding his COPD the patient was diagnosed within the last few months. He smoked tobacco from age 22 to current at 1 pack per day for total of 43 pack years. Currently smoking 10 cigarettes a day. His exposed to secondhand smoke from his father but none since. PFTs on 05/09/2025 demonstrate a moderate obstructive abnormality with a mild restrictive abnormality resulting in a moderately severe decrease in his FEV1 at 57%. FEV1: FVC ratio 60%, moderately decreased DLCO that corrects when adjusted for alveolar volume. He denies vaping or illicit drug use. 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 He denies sand blasting, welding, professional painting, coal mining, construction work. He noticed dyspnea on exertion 3-4 years ago that has gotten progressively worse. One year ago he could walk 3/4 of a block. Recently he can walk 1/2 a block. He had no chronic cough or phlegm production until he developed pneumonia in January of 2025. currently patient has increased phlegm production, mild wheezes, increased shortness of breath. Plan: I will treat him for COPD exacerbation. he has very faint expiratory wheezes and I will change his Solu-Medrol to prednisone 40 mg p.o. q.day, continue DuoNebs q.4 hours, I will discontinue Daliresp as only been on this 3 days. I will continue guaifenesin 1200 mg p.o. q.12 hours. I will treat for possible bacterial infection with ceftriaxone, azithromycin and Flagyl, all day 2. I will send a COVID, influenza, RSV RT PCR assay, respiratory pathogen panel, urine for Legionella antigen, urine for pneumococcal antigen and mycoplasma serum IgM. 05/25/25: Patient has no wheezes today. Patient says the DuoNeb during the middle the night through his machine aggravated his breathing. COVID influenza and RSV RT PCR assay negative. Plan: Prednisone 40 mg p.o. q.day, day 3 steroids. DuoNebs q.4 hours while awake. Guaifenesin 1200 p.o. q.12 hours. Continue ceftriaxone azithromycin and Flagyl all day 3. Respiratory pathogen panel, serum mycoplasma IgM, urine Legionella antigen and urine pneumococcal antigen pending. 05/26/2025: No wheezes today. Patient is stable on DuoNebs while awake. Respiratory pathogen panel negative. Plan: Continue prednisone 40 mg p.o. q.day, today is day 4 of steroids, DuoNebs Q 4 while awake and guaifenesin 1200 b.i.d.. Continue ceftriaxone, azithromycin and Flagyl all day 4. Respiratory pathogen panel negative and mycoplasma IgM, urine Legionella and urine pneumococcal pending. (4) LÓPEZ (obstructive sleep apnea): Code(s): G47.33 - Obstructive sleep apnea (adult) (pediatric) Status: Chronic Assessment and Plan: Patient diagnosed with obstructive sleep apnea with a CPAP titration on 06/06/2017 and a pressure of 11 with nasal pillows to control his apnea events and hypoxemia. One year ago he increased his machine to 11.5 and he increased his to machine to 12 in January of 2025 with his respiratory issues. 05/24/2025: Patient felt he was too unstable to use his home pulse CPAP 12 laast night. Plan: Patient with active hemoptysis, wheezing at this time will hold off on his home CPAP unit. When she is more stable we can initiate CPAP. 05/25/2025: Patient told me he tolerated his home CPAP with pressure of 11 but then increased to 11.5 and did well on these settings. Plan: Continue home CPAP pressure is 11.5. 05/26/2025: Patient slept with his home CPAP with a pressure of 11 and half that was he increased to 12 after he went to the restroom. (5) Smoking: Code(s): F17.200 - Nicotine dependence, unspecified, uncomplicated Status: Acute Assessment and Plan: Patient with a 43 pack year tobacco use currently smoking 10 cigarettes a day. 05/24/2025: We briefly talked about tobacco cessation and he understands the importance of tobacco cessation. Subjective Date/time seen: 05/26/25 11:30 Interval history: 05/24/2025: This is a new pulmonary consult for hemoptysis with lung mass. 65-year-old with a history of hypertension, atrial fibrillation, peripheral arterial disease status post left mechanical thrombectomy and balloon Keenan GGO plasty and stenting to the left popliteal artery, left posterior tibial artery and left tibioperoneal trunk on 10/22/2022 on Eliquis 5 PO BID thereafter, morbid obesity with LÓPEZ on CPAP 11, tobacco use and GOLD grade 2 group E COPD. Regarding his COPD the patient was diagnosed within the last few months. He smoked tobacco from age 22 to current at 1 pack per day for total of 43 pack years. Currently smoking 10 cigarettes a day. His exposed to secondhand smoke from his father but none since. PFTs on 05/09/2025 demonstrate a moderate obstructive abnormality with a mild restrictive abnormality resulting in a moderately severe decrease in his FEV1 at 57%. FEV1: FVC ratio 60%, moderately decreased DLCO that corrects when adjusted for alveolar volume. He denies vaping or illicit drug use. 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 He denies sand blasting, welding, professional painting, coal mining, construction work. He noticed dyspnea on exertion 3-4 years ago that has gotten progressively worse. One year ago he could walk 3/4 of a block. Recently he can walk 1/2 a block. He had no chronic cough or phlegm production until he developed pneumonia in January of 2025. Regarding his obstructive sleep apnea he had a CPAP titration on 06/06/2017 with a pressure of 11 controlling his oxygen and obstructive events. He does not have a [employer] company and purchased his machine. One year ago he increased his pressure to 11.5. Since January of 2025 he increased his pressure to 12. He does not routinely check his downloads. Patient had a history of atrial fibrillation but did not require Eliquis until he had a left lower leg arterial thrombus on 10/21/2022 and was started on Eliquis at that time. In January of 2025 the patient developed fever, cough, chills, sinus congestion, shortness of breath, increased phlegm production and wheezing. He saw his PCP who diagnosed him with a pneumonia and treated him with antibiotics and steroids for 7 days. He got better over the next week back to 50-60% of his baseline. Off of these medicines for 1 week he got worse and worse prescribed antibiotics and steroids and he says he got 30-40% better. Since then he has had good days and bad days. On a good day he feels the same as he did prior to his pneumonia in . On a bad day he produces thick white to clear phlegm 10-15 times a day has worsening shortness of breath. 05/14/2025: CT scan Report of the chest to evaluate his aorta which was dictated on 05/21/2025. No comparison. Left hilar mass with complete collapse of the left lower lobe shift to the mediastinum to the left, mild centrilobular emphysema, multiple enlarged mediastinal and hilar lymph nodes. 05/21/2025 the patient was at his baseline with average amount of phlegm production, shortness of breath and dyspnea on exertion. On 05/22/2025 the patient took a sleeping pill and was anxious because he was told that his CT scan of the chest had a lung mass. He slept well but when he woke up on 05/23/2025 he had coughing paroxysms and the phlegm had blood. The blood ranged from flex, to streaks, to what sounds like veda blood clots and he coughed up blood to 30 times. 05/23/25: Patient presented to the emergency department with blood pressure 95/58, heart rate 78, respirations 24, room air saturations 96%. He had mild inspiratory wheezes. His white blood cell count was 8.8, his creatinine was 0.65, eosinophils 1.2%. BNP 807, troponin negative, INR 1.2, CT angiogram of the chest showed no PE, left lower lobe mass with extension to hilum with collapse of the left lower lobe, and large mediastinal and hilar lymphadenopathy. I was contacted by the emergency department we discussed the case and I instructed them to discontinue his Eliquis, initiate ceftriaxone, azithromycin and Flagyl. Initiate Solu-Medrol 40 q.6 and DuoNebs q.4 hours and guaifenesin 1200 p.o. b.i.d.. Plan was to leave patient NPO to be evaluated on 05/24/2025. 05/24/2025: Overall the patient states that his breathing is improved. He denies fever, chills, rigors or diaphoresis. He thinks that his hemoptysis is better. I asked him to expectorate and he had phlegm with flex and 1 streak of blood. He is afebrile. Patient was on room air with saturations 96%. White blood cell count 6.2, creatinine 0.65. 05/25/2025. Overall the patient tells me he is improved. His cough has decreased in frequency. There is less blood in his phlegm. His last hemoptysis was last night. He has no rest shortness of breath. His dyspnea on exertion is the same. He denies fever, chills, rigors and has made no phlegm this morning. He is on room air with saturations 96%. His white blood cell count is 11.7, his creatinine is 0.58. Yesterday he was positive 920 mL, cumulative he is positive 1.6 L since admission. His weight is 162.3 today. 05/26/25: overall the patient tells me he has improved. He is breathing normally at rest. His dyspnea on exertion is better. He overall he states he has 50-60% back to his normal. He has clear phlegm and last night had 1 episode of hemoptysis with a spot the size of his pinky tip. This morning he had dark red blood in the sputum the same amount. Patient is on room air with saturations 98%. White blood cell count 9.6, hemoglobin 15.6, creatinine 0.68. His weight today is 164. His chest x-ray shows retrocardiac consolidation with no change from 05/23/2025. Last night he wore his home CPAP on room air with a pressure of 11 and half that he increase to 12 after he got up and went to the bathroom. He said he slept well. DATA: 05/23/25: EXAMINATION: CTA chest PE protocol, 05/23/2025 16:50 CDT HISTORY: hemoptysis COMPARISON: No comparisons available. FINDINGS: No significant coronary calcification is present ([id number]) LUNGS: The contrast bolus is adequate, there is no pulmonary embolism identified. No tracheomalacia. No bronchiectasis. There is a large focus of abnormal density in the left lower lobe with no significant air bronchograms appreciated and occlusion of the bronchus in this location. Minimal emphysematous changes. No bullous formation. Minimal pulmonary fibrotic changes. No significant honeycombing is identified. There is volume loss in the left lung with mediastinal shift to the left. Scattered bilateral punctate calcified granulomas. HEART AND PERICARDIUM: Mild cardiomegaly. Trace pericardial effusion. AORTA: Normal caliber aorta.. PULMONARY ARTERIES: No pulmonary embolism ADENOPATHY/MEDIASTINUM: There are multiple enlarged lymph nodes within the mediastinum and the kathia the largest in the subcarinal space measuring 4 x 3.5 cm. LIMITED VIEWS OF THE ABDOMEN: Partially imaged large bilateral renal cysts the largest on the right side 8 x 6 cm incompletely evaluated, renal ultrasound is suggested. Minimal cholelithiasis. OSSEOUS STRUCTURES: No sclerotic or lytic lesions. No acute rib fractures. OVERLYING SOFT TISSUES: Unremarkable. THYROID: There are large cystic appearing bilateral thyroid nodules incompletely evaluated the largest on the right side 5 x 6 cm, ultrasound is recommended. IMPRESSION: 1. Negative for pulmonary embolism. Large area of abnormal density within the left lower which may reflect a large infiltrate with associated lymphadenopathy however there are no significant air bronchograms and the possibility of an obstructing endobronchial lesion should be considered. Metastases are not excluded. Bronchoscopy is suggested 05/14/2025: Dictated report on 05/21/2025 ( No images): CTA chest with and without contrast. Clinical data concern for enlarged aorta. Findings: There are multiple enlarged mediastinal and bilateral hilar lymph nodes. The lung windows demonstrate complete collapse of the left lower lobe. There is right to left mediastinal shift. There appears to be a left hilar mass that may extend into the distal left mainstem bronchus. There is mild centrilobular emphysema there are no suspicious pulmonary nodules throughout the aerated portions of the lung. Impression: There appears to be left hilar mass that extends into the distal left mainstem bronchus. This is concerning for primary bronchogenic carcinoma. There is associated complete collapse of the left lower lobe. Recommend further evaluation with bronchoscopy. 2. There are multiple enlarged mediastinal bilateral hilar lymph nodes, likely representing metastatic lymphadenopathy. PET-CT scan may provide additional information. 3. Diffuse enlargement of the thyroid gland. Recommend further evaluation with dedicated thyroid sonogram. 4. Mild cardiomegaly. There is diffuse coronary Atherosclerotic disease. 05/09/2025: This is a pulmonary function test with spirometry, plethysmography and diffusing capacity. The test was performed and results interpreted in accordance with the 2019 and 2005 ATS/ERS Task Force guidelines respectively using the Global Lung Function Initiative-2012 reference equations. Patient demonstrated good effort and cooperation. Reproducibility criteria were met. The quality of the spirometry maneuver was Grade A. Findings: Spirometry: There is decreased maximal expiratory airflow at all lung volumes with a concave expiratory flow tracing. The contour the inspiratory flow tracing is normal. The FVC is 3.83 L, 72% predicted. The FEV1 is 2.31 L, 57% predicted. The FEV1: FVC ratio is 60%. Plethysmography: The total lung capacity is 5.77 L, 72% predicted. The functional residual capacity is 3.26 L, 76% predicted. The residual volume is 1.70 L, 65% predicted. Diffusing capacity: The diffusing capacity unadjusted for hemoglobin and carboxyhemoglobin is 17.3, 59% predicted. The diffusing capacity adjusted for alveolar volume is 3.80, 99% predicted. Impression: There is a combined obstructive and restrictive ventilatory abnormality. There are no guidelines to assign the severity of obstruction and restriction with a combined abnormality. In my opinion, given the moderately concave expiratory flow tracing, mildly decreased FEV1: FVC ratio and mild restrictive abnormality I would state there is a moderate obstructive abnormality and a mild restrictive abnormality resulting in a moderately severe decrease in the FEV1. The diffusing capacity unadjusted for hemoglobin and carboxyhemoglobin is moderately decreased and normalizes when adjusted for alveolar volume. There are no prior studies for comparison 04/25/2025: Echocardiogram report from [facility]: Conclusions: 1. Mild concentric hypertrophy with normal LV size and low normal function with EF 50-55%. RV appears to have good function from subcostal view. Both atria are dilated. Mild degenerative alveolar changes. Mitral valve: Posterior calcification, valve opens well. I disagree with mean gradient measurement. Aortic valve is trileaflet with sclerosis and mildly elevated peak velocity. There is mild to moderate AI. Aortic root is 4.2 cm. Ascending aorta 4.0 cm. Tricuspid valve: The estimated RVSP is 23. 03/05/2025: Clinical Indication: Pneumonia PA and lateral views of the chest: Comparison: 05/25/2017 Findings: There is central congestive change and possible minimal bibasilar pulmonary edema. Cardiomediastinal silhouette is within normal limits. Bones and soft tissues are unremarkable. Impression: Central congestive change and possible minimal bibasilar pulmonary edema. 06/02/2017: CPAP titration: DATE OF STUDY: June 02, 2017. The patient is a 57-year-old man, 76 inches in height, weighing 340 pounds with a body mass index of 41.4. His last polysomnogram that I have here was dated August 05, 2003, and it was a split night polysomnogram then. The patient was titrated with CPAP from 5 to 10 cm of water and appeared to have optimum level achieved at 9 cm of water. The patient is now back for CPAP retitration. DIAGNOSTIC IMPRESSION: Adequate titration of CPAP to a final pressure of 11 cm of water was noted with correction of respiratory events. Oxygen saturations also stabilized. Sleep efficiency was very good at that level of CPAP. The patient spent the entire time in the supine position at that level of CPAP. We will recommend CPAP at 11 cm of water with a heated humidifier for added comfort. The patient was titrated with his own medium Breeze nasal pillow mask Review of Systems Constitutional: Constitutional: Reports no additional constitutional complaints Eyes: Eyes: Reports no additional eye complaints ENT: Reports system reviewed and no additional complaints, except as documented Cardiovascular: Cardiovascular: Reports no additional cardiovascular complaints Respiratory: Respiratory: Reports no additional respiratory complaints Gastrointestinal: Gastrointestinal: Reports no additional gastrointestinal complaints Musculoskeletal: Musculoskeletal: Reports no additional musculoskeletal complaints Neurologic: Reports system reviewed and no additional complaints, except as documented Psychiatric: Psychiatric: Reports no additional psychiatric complaints Endocrine: Endocrine: Reports no additional endocrine complaints Hematologic/Lymphatic: Hematologic/Lymphatic: Reports no additional hematologic/lymphatic complaints Allergic/Immunologic: Allergic/Immunologic: Reports no additional allergic/immunologic complaints Exam Const: General: cooperative and comfortable Orientation/consciousness: oriented to person, oriented to place and oriented to time Other: obese in distress on room air HENMT: Head: normal to inspection Ears: hearing grossly normal bilaterally Eyes: General: appearance normal, both eyes and all related structures Neck: Neck: normal visual inspection Chest: Chest palpation & inspection: normal inspection of the chest Resp: Effort & Inspection: normal respiratory effort and able to speak in complete sentences Auscultation: no crackles, no rales, no rhonchi, no wheezes and diminished lung sounds Other: No wheezes today. Diminished sounds left lung base Cardio: Jugular venous distension: no JVD GI: Inspection: normal to inspection Skin: General skin exam: normal color Neuro: General: oriented to person, oriented to place and oriented to time Extrem: General: normal to inspection and no edema Psych: Appearance: grossly normal Objective Data Vital Signs Vital Signs: Vital Signs - 24 hr 05/25/25 12:00 05/25/25 14:00 05/25/25 16:00 Temperature 36.7 C Pulse Rate 95 86 89 Respiratory Rate 18 Blood Pressure 124/61 Pulse Oximetry 96 Oxygen Delivery 05/25/25 16:30 05/25/25 20:00 05/25/25 20:01 Temperature 36.5 C Pulse Rate 90 71 88 Respiratory Rate 20 18 Blood Pressure 125/61 Pulse Oximetry 96 Oxygen Delivery 05/25/25 20:05 05/25/25 20:27 05/25/25 20:37 Temperature Pulse Rate 85 85 Respiratory Rate 20 20 Blood Pressure Pulse Oximetry Oxygen Delivery Room Air 05/26/25 00:00 05/26/25 01:52 05/26/25 04:00 Temperature Pulse Rate 69 72 Respiratory Rate Blood Pressure Pulse Oximetry Oxygen Delivery CPAP 05/26/25 05:36 05/26/25 05:42 05/26/25 05:45 Temperature 36.8 C Pulse Rate 85 76 85 Respiratory Rate 20 18 20 Blood Pressure 141/65 H Pulse Oximetry 97 Oxygen Delivery 05/26/25 08:00 05/26/25 08:00 05/26/25 08:43 Temperature Pulse Rate 100 104 H Respiratory Rate Blood Pressure Pulse Oximetry Oxygen Delivery Room Air 05/26/25 09:08 05/26/25 09:16 Temperature Pulse Rate 94 101 H Respiratory Rate 16 14 Blood Pressure Pulse Oximetry Oxygen Delivery Intake/Output Intake/Output: Intake & Output 05/23/25 05/24/25 05/25/25 05/26/25 23:59 23:59 23:59 23:59 Intake Total 100 1320 2060 840 Output Total 400 175 Balance 000 227 1542 840 Meds/Results Medications: Active Medications Generic Name Dose Route Start Last Admin Trade Name Freq PRN Reason Stop Dose Admin Acetaminophen 500 mg 05/24/25 08:49 05/25/25 18:35 Acetaminophen 500 Mg Tablet PO 500 mg Q4H PRN Administration Mild Pain (1-3) or Fever Albuterol/Ipratropium 3 ml 05/24/25 08:55 05/26/25 05:38 Ipratropium 0.5 Mg/Albuterol Sulfate 2.5 Mg Ampul.Neb 3 Ml INHALATION 3 ml Q6HR PRN Administration Shortness Of Breath Albuterol/Ipratropium 3 ml 05/25/25 16:00 05/26/25 09:05 Ipratropium 0.5 Mg/Albuterol Sulfate 2.5 Mg Ampul.Neb 3 Ml INHALATION 3 ml [id number] SONYA Administration Amlodipine Besylate 10 mg 05/24/25 09:00 05/26/25 08:45 Amlodipine Besylate 10 Mg Tablet PO 10 mg DAILY SONYA Administration Atorvastatin Calcium 40 mg 05/23/25 21:45 05/25/25 20:14 Atorvastatin 40 Mg Tablet PO 40 mg HS SONYA Administration Escitalopram Oxalate 5 mg 05/24/25 09:00 05/26/25 08:45 Escitalopram Oxalate 5 Mg Tablet PO 5 mg DAILY SONYA Administration Guaifenesin 1,200 mg 05/23/25 21:00 05/26/25 08:45 Guaifenesin 12 Hr 600 Mg Tabcr PO 1,200 mg Q12HR SONYA Administration Hydralazine HCl 50 mg 05/23/25 22:00 05/26/25 06:07 Hydralazine Hcl 50 Mg Tablet PO 50 mg Q8HR SONYA Administration Metronidazole 500 mg in 100 mls @ 100 mls/hr 05/23/25 22:00 05/26/25 06:07 Flagyl 500 Mg/Iso Soln 100 Ml IVPB 100 mls/hr Q8H SONYA Administration Ceftriaxone Sodium 1 gm/ 50 mls @ 100 mls/hr 05/24/25 21:00 05/25/25 20:45 Sodium Chloride IVPB Infused Q24H SONYA Infusion Azithromycin 500 mg/ Sodium 250 mls @ 250 mls/hr 05/23/25 23:00 05/25/25 23:42 Chloride IVPB Infused Q24H SONYA Infusion Isosorbide Mononitrate 30 mg 05/24/25 09:00 05/26/25 08:43 Isosorbide Mononitrate 30 Mg Tab.Er.24h PO 30 mg DAILY SONYA Administration Lisinopril 20 mg 05/24/25 09:00 05/26/25 08:45 Lisinopril 20 Mg Tablet PO 20 mg QAM SONYA Administration Lorazepam 0.5 mg 05/23/25 21:35 05/24/25 02:03 Lorazepam (*Crx) 0.5 Mg Tablet PO 0.5 mg BID PRN Administration Anxiety Metoprolol Succinate 200 mg 05/24/25 09:00 05/26/25 08:43 Metoprolol Succinate Ext Rel 100 Mg Tabcr PO 200 mg DAILY SONYA Administration Multivitamins Therapeutic 1 tablet 05/24/25 09:00 05/26/25 08:45 Multivitamins Therapeutic Tab (*Bkc) PO 1 tablet QAM SONYA Administration Nicotine 1 patch 05/23/25 20:55 05/26/25 08:53 Nicotine (*Pbkc) 21 Mg Patch TRANSDERM 1 patch DAILY SONYA Administration Oxymetazoline HCl 1 spray 05/23/25 22:53 05/23/25 23:42 Oxymetazoline Hcl 0.05% Jewel 15 Ml Btl (*Bkc) NASAL 1 spray Q12HR PRN Administration Congestion Pantoprazole Sodium 40 mg 05/24/25 09:00 05/26/25 08:45 Pantoprazole 40 Mg Tablet PO 40 mg QAM SONYA Administration Prednisone 40 mg 05/24/25 11:55 05/26/25 08:45 Prednisone 20 Mg Tablet PO 40 mg DAILY@0800 SONYA Administration Sodium Chloride 1 spray 05/23/25 21:38 05/23/25 22:24 Saline 0.65% Jewel Soln 44 Ml Btl NASAL 1 spray Q6HR PRN Administration Congestion Tamsulosin HCl 0.4 mg 05/23/25 21:50 05/26/25 08:45 Tamsulosin Hcl 0.4 Mg Capsule PO 0.4 mg Q12HR SONYA Administration Radiology Results: ITS Impressions Chest CTA 05/23/25 17:05 IMPRESSION: 1. Negative for pulmonary embolism. Large area of abnormal density within the left lower which may reflect a large infiltrate with associated lymphadenopathy however there are no significant air bronchograms and the possibility of an obstructing endobronchial lesion should be considered. Metastases are not excluded. Bronchoscopy is suggested Thyroid Ultrasound 05/24/25 12:29 IMPRESSION: 1. There is a 3.1 cm nodule in the left mid thyroid lobe. A fine needle aspiration is recommended. 2. There is a 5.6 cm mildly complicated cyst in the right thyroid lobe. 3. There is a 3 cm cyst in the left thyroid lobe. Chest X-Ray 05/26/25 10:21 IMPRESSION: 1. No significant change. 2. Left lower lobe mass and complete left lower lobe atelectasis as before. Labs Labs: Laboratory Results - last 24 hr 05/24/25 05/25/25 05/25/25 10:06 04:41 04:42 WBC RBC Hgb Hct MCV MCH MCHC RDW Plt Count MPV Immature Gran % (Auto) Neut % (Auto) Lymph % (Auto) [place] % (Auto) Eos % (Auto) Baso % (Auto) Lymph # (Auto) [place] # (Auto) Eos # (Auto) Baso # (Auto) Abs Immat Gran (auto) Absolute Neuts (auto) Absolute Nucleated RBC Nucleated RBC % Sodium Potassium Chloride Carbon Dioxide Anion Gap BUN Creatinine Estim Creat Clear Calc Estimated GFR Glucose Calcium Total Bilirubin AST ALT Alkaline Phosphatase Total Protein Albumin [id number] 155 TSH (Reflex) 0.754 Chlamy pneumoniae PCR Not detected Adenovirus (PCR) Not detected B. pertussis DNA (PCR) Not detected B.parapertussis DNA PCR Not detected Coronavirus OC43 (PCR) Not detected Coronavirus HKU1 (PCR) Not detected Coronavirus 229E (PCR) Not detected Coronavirus NL63 (PCR) Not detected Human Metapneumovir PCR Not detected Influenza A (H1) PCR Not detected Influ A (H1/09) PCR Not detected Influenza A (H3) PCR Not detected Influenza Type A (PCR) Not detected Influenza Type B (PCR) Not detected M. pneumoniae (PCR) Not detected Parainfluenza 1 (PCR) Not detected Parainfluenza 2 (PCR) Not detected Parainfluenza 3 (PCR) Not detected Parainfluenza 4 (PCR) Not detected RSV (PCR) Not detected Entero/Rhino (PCR) Not detected SARS-CoV-2 (PCR) Not detected 05/26/25 04:58 WBC 9.5 RBC 5.01 Hgb 15.6 Hct 45.8 MCV 91.4 MCH 31.1 MCHC 34.1 RDW 13.8 Plt Count 221 MPV 9.7 Immature Gran % (Auto) 1.1 H Neut % (Auto) 49.9 Lymph % (Auto) 37.0 [place] % (Auto) 11.4 H Eos % (Auto) 0.2 Baso % (Auto) 0.4 Lymph # (Auto) 3.[address] [place] # (Auto) 1.1 H Eos # (Auto) 0.0 Baso # (Auto) 0.0 Abs Immat Gran (auto) 0.10 H Absolute Neuts (auto) 4.7 Absolute Nucleated RBC 0.000 Nucleated RBC % 0.0 Sodium 130 L Potassium 3.7 Chloride 100 Carbon Dioxide 25 Anion Gap 5 BUN 12 Creatinine 0.68 L Estim Creat Clear Calc 157 Estimated GFR > 60 Glucose 88 Calcium 7.9 L Total Bilirubin 1.4 H AST 47 ALT 41 Alkaline Phosphatase 77 Total Protein 5.6 L Albumin 3.2 L Tigca-8-Qpbjrichigf TSH (Reflex) Chlamy pneumoniae PCR Adenovirus (PCR) B. pertussis DNA (PCR) B.parapertussis DNA PCR Coronavirus OC43 (PCR) Coronavirus HKU1 (PCR) Coronavirus 229E (PCR) Coronavirus NL63 (PCR) Human Metapneumovir PCR Influenza A (H1) PCR Influ A (H1/09) PCR Influenza A (H3) PCR Influenza Type A (PCR) Influenza Type B (PCR) M. pneumoniae (PCR) Parainfluenza 1 (PCR) Parainfluenza 2 (PCR) Parainfluenza 3 (PCR) Parainfluenza 4 (PCR) RSV (PCR) Entero/Rhino (PCR) SARS-CoV-2 (PCR)
[2025-05-26] MEDS: ACETAMINOPHEN 500 MG TABLET PO (15:02)
[2025-05-26] MEDS: ATORVASTATIN 40 MG TABLET PO (20:21)
[2025-05-26] MEDS: LORazepam (*CRX) 0.5 MG TABLET PO (20:23)
[2025-05-26] MEDS: cefTRIAXone 1 GM in SODIUM CHLORIDE 0.9% IV 50 ML 100 ML IVPB (20:24)
[2025-05-26] MEDS: AZITHROMYCIN IV 500 MG in SODIUM CHLORIDE 0.9% IV 250 ML IVPB (22:58)
[2025-05-27] VITALS (24 sets, daily range): BP systolic 83–133; BP diastolic 43–71; PULSE 59–92; RESP 16–32; TEMP 35.4–36.6; O2SAT 94–100
[2025-05-27] MEDS: diazePAM INJ (*CRX) 10 MG/2 ML SYRINGE 2.5 MG IV PUSH (03:47)
[2025-05-27 05:22] LABS: Hematocrit 45.1 % (42.0-52.0); Hemoglobin 15.1 g/dL (14.0-18.0); Immature Granulocyte Percent A 2.1 % (0-0.5); Lymphocytes Absolute Auto 3.10 K/mm3 (0.9-3.2); Mean Corpuscular HGB Conc 33.5 g/dl (32-36); Mean Corpuscular Hemoglobin 30.7 pg (26-34); Mean Corpuscular Volume 91.7 fl (80-100); Nucleated Red Blood Cells Absolute Auto 0.000 K/mm3 (0.0-0.012); Nucleated Red Blood Cells Perc 0.0 % (0.0-0.2); Platelet Count Result 208 k/mm3 (150-375); Red Blood Count 4.92 M/mm3 (4.6-6.20); White Blood Count 9.6 K/mm3 (4.5-10.0)
[2025-05-27 05:49] LABS: Alanine Aminotransferase 47 U/L (6-50); Albumin Level 3.1 g/dL (3.5-5.1); Alkaline Phosphatase 79 U/L (38-126); Anion Gap 3 mmol/L (4-12); Aspartate Amino Transferase 46 U/L (17-59); Bilirubin,Total 1.1 mg/dL (0.2-1.3); Blood Urea Nitrogen 11 mg/dL (9-20); Calcium 8.0 mg/dL (8.4-10.2); Carbon Dioxide 22 mmol/L (22-30); Chloride 101 mmol/L (98-107); Estimated CRCL calculation 164 ml/min; Estimated Glomerular Filt Rate > 60; Glucose 96 mg/dL (65-110); Potassium 3.4 mmol/L (3.4-5.0); Sodium 126 mmol/L (137-145); Total Protein 5.6 g/dL (6.3-8.2)
[2025-05-27] MEDS: metroNIDAZOLE 500 MG/ISO 100ML 500 MG/100 ML BAG 100 MG IVPB ×2 (06:39→13:52)
--- NOTE | 2025-05-27 07:02 | P.PNIM_ITS ---
Progress Note: A&P Assessment and Plan (1) Lung mass: Code(s): R91.8 - Other nonspecific abnormal finding of lung field Status: Acute Assessment and Plan: * Chest CTA: Negative for pulmonary embolism. Large area of abnormal density within the left lower which may reflect a large infiltrate with associated lymphadenopathy however there are no significant air bronchograms and the possibility of an obstructing endobronchial lesion should be considered. Metastases are not excluded. Bronchoscopy is suggested * Mass present in KEIKO * NPO at MT. * Trend labs and VS. * Orders per Dr. Krishna include: Continue Eliquis, Solumedrol 40 mg Q6 hrs, Duoneb Q4 hrs prn, Rocephin 1G daily, Azithromycin 500 mg IVPB Q24 hrs, Flagyl 500 mg IVPB Q8 hrs, and Guaifenesin BID. * Heme/onc consult - appreciate further recommendations * Consult Pulmonology * Potential Bronchoscopy w/Bx this afternoon (2) Hemoptysis: Code(s): R04.2 - Hemoptysis Status: Acute Assessment and Plan: * See above * History of chronic Eliquis use given peripheral artery disease status post stent to left lower extremity in 2022 * 43 pack year tobacco use, current cigarette smoker * Hold anticoagulation (3) COPD (chronic obstructive pulmonary disease): Qualifiers: COPD type: unspecified COPD Qualified Code(s): J44.9 - Chronic obs tructive pulmonary disease, unspecified Code(s): J44.9 - Chronic obstructive pulmonary disease, unspecified Status: Chronic Assessment and Plan: * See #1 * Supplemental oxygen as needed. (4) Hyponatremia: Code(s): E87.1 - Hypo-osmolality and hyponatremia Status: Acute Assessment and Plan: * Uncertain etiology. Possible causes SIADH, Electrolyte shift from Lung mass, Dehydration * Collect urine and serum osmolalities, urine sodium * Normal renal function. * Normal saline at 100 ml/hr ordered. * Trend labs * 05/27: Na 125 -> 130 -> 126. Asymptomatic, continue to IVF rehydration (5) Thyroid nodule: Code(s): E04.1 - Nontoxic single thyroid nodule Status: Acute Assessment and Plan: * Chest CTA: There are large cystic appearing bilateral thyroid nodules incompletely evaluated the largest on the right side 5 x 6 cm, ultrasound is recommended. * Thyroid US: * There is a 3.1 cm nodule in the left mid thyroid lobe. A fine needle as piration is recommended. * There is a 5.6 cm mildly complicated cyst in the right thyroid lobe. * There is a 3 cm cyst in the left thyroid lobe. * TSH wnl * Heme/onc consult given possible need for FNA - would need to wait until after bronchoscopy for this (6) Chronic atrial fibrillation: Code(s): I48.20 - Chronic atrial fibrillation, unspecified Status: Chronic Assessment and Plan: * Continue Eliquis therapy * Telemetry (7) Mixed hyperlipidemia: Code(s): E78.2 - Mixed hyperlipidemia Status: Chronic Assessment and Plan: * Heart Healthy diet w/NPO at MT. * Continue statin once confirmed. (8) Essential hypertension: Code(s): I10 - Essential (primary) hypertension Status: Chronic Assessment and Plan: * BP currently stable w/SBP running low 100s-110/Diastolics of 60s * Monitor and trend. * Reorder home meds once they are confirmed and reviewed. * 133/67 (9) LÓPEZ (obstructive sleep apnea): Code(s): G47.33 - Obstructive sleep apnea (adult) (pediatric) Status: Chronic Assessment and Plan: * Home CPAP therapy. (10) Nicotine abuse: Code(s): Z72.0 - Tobacco use Status: Chronic Assessment and Plan: * 40+ Pack year smoker * Nicotine patch daily. * Counseled for the importance of smoking cessation in the current setting. Subjective Date/time seen: 05/27/25 07:02 Interval history: This is a 65 year old male pt with hx of detention smoking, A-fib on Eliquis, BPH, Obesity, HTN, HLD, Left popliteal artery occlusion, LÓPEZ and aortic valve insufficiency comes to the ER with complaints of having persistent SOB and today hemoptysis. 05/27/2025 Patient sitting at bedside during examination. Denies any chest pain, shortness of breath at rest, n/v or abd pain. Plan for bronchoscopy today @ 1545. Oncology consult pending regarding thyroid nodule/lung mass. Will consider discharge tomorrow if bronchoscopy goes well. Review of Systems Review of Systems: All systems reviewed & are unremarkable except as noted in HPI and below Exam Const: General: uncomfortable Other: Obese male pt sitting on stretcher at this time. He appears overall uncomfortable. HENMT: Mouth: Yes moist mucous membranes Eyes: General: appearance normal, both eyes and all related structures Neck: Neck: supple and no JVD Carotids: no bruits Lymphatic: l ymphadenopathy not noted Chest: Other: Not tender to palpation Resp: Effort & Inspection: abnormal respiratory effort (Increased effort) Auscultation: rhonchi and wheezes Other: Abnormal lung sounds in all lobes with scattered rhonchi and wheezing, but decreased lung sounds KEIKO. Cardio: Rate: regular rate Rhythm: abnormal rhythm regularly irregular (Hx. A-fib) Heart sounds: no gallops, Murmur heart sound present and no rubs GI: Inspection: non-distended Auscultation: normal bowel sounds Skin: General skin exam: normal color, no rashes or lesions noted and no erythema Wounds: no wounds Neuro: Speech: normal speech Motor exam (neuro): 5/5 motor strength present throughout and Normal motor muscle tone present throughout Sensory Exam: normal sensation Extrem: General: normal to inspection, edema (trace BLE) and no pedal edema Psych: Mental Status: mental status grossly normal Affect: Anxious affect present Objective Data Vital Signs Vital Signs: Vital Signs - 24 hr 05/26/25 08:00 05/26/25 08:00 05/26/25 08:43 Temperature Pulse Rate 100 104 H Respiratory Rate Blood Pressure Pulse Oximetry Oxygen Delivery Room Air 05/26/25 09:08 05/26/25 09:16 05/26/25 12:00 Temperature Pulse Rate 94 101 H 79 Respiratory Rate 16 14 Blood Pressure Pulse Oximetry Oxygen Delivery 05/26/25 12:47 05/26/25 12:52 05/26/25 16:00 Temperature Pulse Rate 70 72 75 Respiratory Rate 16 16 Blood Pressure Pulse Oximetry Oxygen Delivery 05/26/25 16:14 05/26/25 16:30 05/26/25 16:38 Temperature 97.2 F L Pulse Rate 79 85 81 Respiratory Rate 18 16 16 Blood Pressure 128/67 Pulse Oximetry 96 Oxygen Delivery 05/26/25 19:33 05/26/25 19:39 05/26/25 19:45 Temperature 97.7 F Pulse Rate 87 90 90 Respiratory Rate 20 16 16 Blood Pressure 126/74 Pulse Oximetry 95 Oxygen Delivery 05/26/25 20:00 05/26/25 20:00 05/27/25 00:00 Temperature Pulse Rate 80 79 Respiratory Rate Blood Pressure Pulse Oximetry Oxygen Delivery Room Air 05/27/25 02:00 05/27/25 02:57 05/27/25 04:00 Temperature 97.6 F Pulse Rate 67 66 Respiratory Rate 20 Blood Pressure 133/67 Pulse Oximetry 96 Oxygen Delivery CPAP Intake/Output Intake/Output: Intake & Output 05/24/25 05/25/25 05/26/25 05/27/25 23:59 23:59 23:59 23:59 Intake Total 1320 2060 2230 240 Output Total 400 175 Balance 920 1885 2230 240 Meds/Results Medications: Active Medications Generic Name Dose Route Start Last Admin Trade Name Freq PRN Reason Stop Dose Admin Acetaminophen 500 mg 05/24/25 08:49 05/26/25 15:02 Acetaminophen 500 Mg Tablet PO 500 mg Q4H PRN Administration Mild Pain (1-3) or Fever Albuterol/Ipratropium 3 ml 05/24/25 08:55 05/26/25 05:38 Ipratropium 0.5 Mg/Albuterol Sulfate 2.5 Mg Ampul.Neb 3 Ml INHALATION 3 ml Q6HR PRN Administration Shortness Of Breath Albuterol/Ipratropium 3 ml 05/25/25 16:00 05/26/25 19:39 Ipratropium 0.5 Mg/Albuterol Sulfate 2.5 Mg Ampul.Neb 3 Ml INHALATION 3 ml [id number] SONYA Administration Amlodipine Besylate 10 mg 05/24/25 09:00 05/26/25 08:45 Amlodipine Besylate 10 Mg Tablet PO 10 mg DAILY SONYA Administration Atorvastatin Calcium 40 mg 05/23/25 21:45 05/26/25 20:21 Atorvastatin 40 Mg Tablet PO 40 mg HS SONYA Administration Escitalopram Oxalate 5 mg 05/24/25 09:00 05/26/25 08:45 Escitalopram Oxalate 5 Mg Tablet PO 5 mg DAILY SONYA Administration Guaifenesin 1,200 mg 05/23/25 21:00 05/26/25 20:22 Guaifenesin 12 Hr 600 Mg Tabcr PO 1,200 mg Q12HR SONYA Administration Hydralazine HCl 50 mg 05/23/25 22:00 05/26/25 21:09 Hydralazine Hcl 50 Mg Tablet PO 50 mg Q8HR SONYA Administration Metronidazole 500 mg in 100 mls @ 100 mls/hr 05/23/25 22:00 05/27/25 06:39 Flagyl 500 Mg/Iso Soln 100 Ml IVPB 100 mls/hr Q8H SONYA Administration Ceftriaxone Sodium 1 gm/ 50 mls @ 100 mls/hr 05/24/25 21:00 05/26/25 20:54 Sodium Chloride IVPB Infused Q24H SONYA Infusion Azithromycin 500 mg/ Sodium 250 mls @ 250 mls/hr 05/23/25 23:00 05/26/25 23:58 Chloride IVPB Infused Q24H SONYA Infusion Isosorbide Mononitrate 30 mg 05/24/25 09:00 05/26/25 08:43 Isosorbide Mononitrate 30 Mg Tab.Er.24h PO 30 mg DAILY SONYA Administration Lisinopril 20 mg 05/24/25 09:00 05/26/25 08:45 Lisinopril 20 Mg Tablet PO 20 mg QAM SONYA Administration Lorazepam 0.5 mg 05/23/25 21:35 05/26/25 20:23 Lorazepam (*Crx) 0.5 Mg Tablet PO 0.5 mg BID PRN Administration Anxiety Metoprolol Succinate 200 mg 05/24/25 09:00 05/26/25 08:43 Metoprolol Succinate Ext Rel 100 Mg Tabcr PO 200 mg DAILY SONYA Administration Multivitamins Therapeutic 1 tablet 05/24/25 09:00 05/26/25 08:45 Multivitamins Therapeutic Tab (*Bkc) PO 1 tablet QAM SONYA Administration Nicotine 1 patch 05/23/25 20:55 05/26/25 08:53 Nicotine (*Pbkc) 21 Mg Patch TRANSDERM 1 patch DAILY SONYA Administration Oxymetazoline HCl 1 spray 05/23/25 22:53 05/23/25 23:42 Oxymetazoline Hcl 0.05% Jewel 15 Ml Btl (*Bkc) NASAL 1 spray Q12HR PRN Administration Congestion Pantoprazole Sodium 40 mg 05/24/25 09:00 05/26/25 08:45 Pantoprazole 40 Mg Tablet PO 40 mg QAM SONYA Administration Prednisone 40 mg 05/24/25 11:55 05/26/25 08:45 Prednisone 20 Mg Tablet PO 40 mg DAILY@0800 SONYA Administration Sodium Chloride 1 spray 05/23/25 21:38 05/23/25 22:24 Saline 0.65% Jewel Soln 44 Ml Btl NASAL 1 spray Q6HR PRN Administration Congestion Tamsulosin HCl 0.4 mg 05/23/25 21:50 05/26/25 20:22 Tamsulosin Hcl 0.4 Mg Capsule PO 0.4 mg Q12HR SONYA Administration Radiology Results: ITS Impressions Chest CTA 05/23/25 17:05 IMPRESSION: 1. Negative for pulmonary embolism. Large area of abnormal density within the left lower which may reflect a large infiltrate with associated lymphadenopathy however there are no significant air bronchograms and the possibility of an obstructing endobronchial lesion should be considered. Metastases are not excluded. Bronchoscopy is suggested Thyroid Ultrasound 05/24/25 12:29 IMPRESSION: 1. There is a 3.1 cm nodule in the left mid thyroid lobe. A fine needle aspi ration is recommended. 2. There is a 5.6 cm mildly complicated cyst in the right thyroid lobe. 3. There is a 3 cm cyst in the left thyroid lobe. Labs Labs: Laboratory Results - last 24 hr 05/25/25 05/27/25 04:42 04:33 WBC 9.6 RBC 4.92 Hgb 15.1 Hct 45.1 MCV 91.7 MCH 30.7 MCHC 33.5 RDW 13.6 Plt Count 208 MPV 9.5 Immature Gran % (Auto) 2.1 H Neut % (Auto) 52.2 Lymph % (Auto) 32.3 [place] % (Auto) 12.4 H Eos % (Auto) 0.6 Baso % (Auto) 0.4 Lymph # (Auto) 3.10 [place] # (Auto) 1.2 H Eos # (Auto) 0.1 Baso # (Auto) 0.0 Abs Immat Gran (auto) 0.20 H Absolute Neuts (auto) 5.0 Absolute Nucleated RBC 0.000 Nucleated RBC % 0.0 Sodium 126 L Potassium 3.4 Chloride 101 Carbon Dioxide 22 Anion Gap 3 L BUN 11 Creatinine 0.65 L Estim Creat Clear Calc 164 Estimated GFR > 60 Glucose 96 Calcium 8.0 L Total Bilirubin 1.1 AST 46 ALT 47 Alkaline Phosphatase 79 Total Protein 5.6 L Albumin 3.1 L Blnzu-[id number] 155 Quality VTE Prophylaxis VTE prophylaxis: pharmacologic ordered
[2025-05-27] MEDS: IPRATROPIUM 0.5 MG/ALBUTEROL SULFATE 2.5 MG AMPUL.NEB 3 ML INHALATION ×4 (07:41→19:46)
[2025-05-27] MEDS: METOPROLOL SUCCINATE EXT REL 100 MG TABCR 200 MG PO (09:57)
[2025-05-27] MEDS: ESCITALOPRAM OXALATE 5 MG TABLET PO (09:57)
[2025-05-27] MEDS: TAMSULOSIN HCL 0.4 MG CAPSULE PO ×2 (09:57→21:25)
[2025-05-27] MEDS: MULTIVITAMINS THERAPEUTIC TAB (*BKC) 1 TABLET PO (09:57)
[2025-05-27] MEDS: LORazepam (*CRX) 0.5 MG TABLET PO ×2 (09:57→21:27)
[2025-05-27] MEDS: PANTOPRAZOLE 40 MG TABLET PO (09:57)
[2025-05-27] MEDS: ISOSORBIDE MONONITRATE 30 MG TAB.ER.24H PO (09:58)
[2025-05-27] MEDS: guaiFENesin 12 HR 600 MG TABCR 1200 MG PO ×2 (09:58→21:25)
[2025-05-27] MEDS: NICOTINE (*PBKC) 21 MG PATCH 1 PATCH TRANSDERM (10:07)
--- NOTE | 2025-05-27 10:25 | P.PNPL_ITS ---
Progress Note: A&P Assessment and Plan (1) Lung mass: Code(s): R91.8 - Other nonspecific abnormal finding of lung field Status: Acute Assessment and Plan: Patient with 43 pack year tobacco use currently smoking 10 cigarettes a day, 20 lb weight loss since January of 2025, hemoptysis, left lung and hilar mass with collapse of the left lower lobe, presents with 1 day of hemoptysis. plan: Concern for lung cancer. I discussed and reviewed the CT scan of the chest with the radiologist and given the proximal nature of his mass best diagnostic procedure is bronchoscopy. Patient currently has mild wheezing and will treat for COPD and pneumonia over the next 48 hours. We will then reassess for bronchoscopy with possible Louise needle biopsy of subcarinal lymph nodes on 05/27/2025. 05/25/2025. Overall the patient tells me he is improved. His cough has decreased in frequency. There is less blood in his phlegm. His last hemoptysis was last night. He has no rest shortness of breath. His dyspnea on exertion is the same. He denies fever, chills, rigors and has made no phlegm this morning. He is on room air with saturations 96%. His white blood cell count is 11.7, his creatinine is 0.58. Yesterday he was positive 920 mL, cumulative he is positive 1.6 L since admission. His weight is 162.3 today. Plan: patient is improving and if he remains clinically stable will consider bronchoscopy on 05/27/2025. 05/26/25: overall the patient tells me he has improved. He is breathing normally at rest. His dyspnea on exertion is better. He overall he states he has 50-60% back to his normal. Patient is on room air with saturations 98%. White blood cell count 9.6, hemoglobin 15.6, creatinine 0.68. His weight today is 164. His chest x-ray shows retrocardiac consolidation with no change from 05/23/2025. Last night he wore his home CPAP on room air with a pressure of 11 and half that he increase to 12 after he got up and went to the bathroom. He said he slept well. Plan: Patient is clinically stable and will perform bronchoscopy on 05/27/2025. The patient tells me that he had general anesthesia and was concerned that succinylcholine caused him to have severe muscle aches after 48 hours. Will make anesthesia aware. 05/27/25: The patient tells me he is breathing better than he has since January of 2025. He still has a cough. He had 1 episode of sputum with dark red blood this morning. He denies fever chills. Yesterday afternoon he had a panic attack. Currently is on room air with saturations 98%. White blood cell count 9.6, creatinine 0.65, sodium 126. Weight today is 165.4. Chest x-ray shows left lower lobe consolidation with no change from 05/26/2025. Plan for bronchoscopy later today. Plan: will plan for bronchoscopy later this afternoon. I have informed anesthesia coordinator about his concerns with succinylcholine who will pass this on to anesthesia. Oncology has been consulted. If patient tolerates bronchoscopy well today and has no complications tomorrow will consider discharge home on 05/28/2025. Discussed with Dr. Jose, will follow with you. (2) Hemoptysis: Code(s): R04.2 - Hemoptysis Status: Acute Assessment and Plan: Patient with a history of peripheral arterial disease status post stent to the left lower extremity in 2022 on Eliquis 5 p.o. b.i.d., left lung and hilar mass with collapse of the left lower lobe, 43 pack year tobacco use currently smoking 10 cigarettes a day, presents with 1 day of hemoptysis. etiology of patient's hemoptysis includes lung cancer, pneumonia, tracheobronchitis. 05/24/25: plan: Eliquis currently on hold. Last dose given 01/20/2025 at 10:04 p.m.. Given his hemoptysis will need to hold anticoagulation at this time. Patient will need bronchoscopy with plan for 05/27/2025. Will also treat for pneumonia and currently on ceftriaxone, azithromycin, Flagyl all day 2. Will also treat for COPD exacerbation as below. 05/25/2025: The patient tells me that his hemoptysis decreased throughout the day yesterday but he still had flecks and streaks in his sputum last night. He has had no phlegm this morning. Plan: Once the patient is hemoptysis free for 24 hours will reassess for anticoagulation prior to his bronchoscopy. 05/26/25: He has clear phlegm and last night had 1 episode of hemoptysis with a spot the size of his pinky tip. This morning he had dark red blood in the sputum the same amount. Plan: Patient is still with hemoptysis and I will not initiate anticoagulation at this day. Of note when the patient had a previous colonoscopy is inside sales consultant said he could be off of Eliquis for 5 days. 05/27/2025: Patient with 1 episode of sputum with dark red blood this morning. There was no active bright red blood. Plan: Continue to hold anticoagulation at this time. (3) COPD (chronic obstructive pulmonary disease): Qualifiers: COPD type: unspecified COPD Qualified Code(s): J44.9 - Chronic obstructive pulmonary disease, unspecified Code(s): J44.9 - Chronic obstructive pulmonary disease, unspecified Status: Chronic Assessment and Plan: GOLD grade 2 group E COPD Regarding his COPD the patient was diagnosed within the last few months. He smoked tobacco from age 22 to current at 1 pack per day for total of 43 pack years. Currently smoking 10 cigarettes a day. His exposed to secondhand smoke from his father but none since. PFTs on 05/09/2025 demonstrate a moderate obstructive abnormality with a mild restrictive abnormality resulting in a moderately severe decrease in his FEV1 at 57%. FEV1: FVC ratio 60%, moderately decreased DLCO that corrects when adjusted for alveolar volume. He denies vaping or illicit drug use. 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 He denies sand blasting, welding, professional painting, coal mining, construction work. He noticed dyspnea on exertion 3-4 years ago that has gotten progressively worse. One year ago he could walk 3/4 of a block. Recently he can walk 1/2 a block. He had no chronic cough or phlegm production until he developed pneumonia in January of 2025. currently patient has increased phlegm production, mild wheezes, increased shortness of breath. Plan: I will treat him for COPD exacerbation. he has very faint expiratory wheezes and I will change his Solu-Medrol to prednisone 40 mg p.o. q.day, continue DuoNebs q.4 hours, I will discontinue Daliresp as only been on this 3 days. I will continue guaifenesin 1200 mg p.o. q.12 hours. I will treat for possible bacterial infection with ceftriaxone, azithromycin and Flagyl, all day 2. I will send a COVID, influenza, RSV RT PCR assay, respiratory pathogen panel, urine for Legionella antigen, urine for pneumococcal antigen and mycoplasma serum IgM. 05/25/25: Patient has no wheezes today. Patient says the DuoNeb during the middle the night through his machine aggravated his breathing. COVID influenza and RSV RT PCR assay negative. Plan: Prednisone 40 mg p.o. q.day, day 3 steroids. DuoNebs q.4 hours while awake. Guaifenesin 1200 p.o. q.12 hours. Continue ceftriaxone azithromycin and Flagyl all day 3. Respiratory pathogen panel, serum mycoplasma IgM, urine Legionella antigen and urine pneumococcal antigen pending. 05/26/2025: No wheezes today. Patient is stable on DuoNebs while awake. Respiratory pathogen panel negative. Plan: Continue prednisone 40 mg p.o. q.day, today is day 4 of steroids, DuoNebs Q 4 while awake and guaifenesin 1200 b.i.d.. Continue ceftriaxone, azithromycin and Flagyl all day 4. Respiratory pathogen panel negative and mycoplasma IgM, urine Legionella and urine pneumococcal pending. 05/27/2025: Focal wheezing in the left lower lobe. Patient states the DuoNebs to help him. Plan: Continue prednisone 40 mg p.o. q.day, today is day 5 of steroids, DuoNebs Q 4 while awake and guaifenesin 1200 b.i.d.. Continue ceftriaxone, azithromycin and Flagyl all day 5. Continue for now. Respiratory pathogen panel negative and mycoplasma IgM, urine Legionella and urine pneumococcal pending. (4) LÓPEZ (obstructive sleep apnea): Code(s): G47.33 - Obstructive sleep apnea (adult) (pediatric) Status: Chronic Assessment and Plan: Patient diagnosed with obstructive sleep apnea with a CPAP titration on 06/06/2017 and a pressure of 11 with nasal pillows to control his apnea events and hypoxemia. One year ago he increased his machine to 11.5 and he increased his to machine to 12 in January of 2025 with his respiratory issues. 05/24/2025: Patient felt he was too unstable to use his home pulse CPAP 12 laast night. Plan: Patient with active hemoptysis, wheezing at this time will hold off on his home CPAP unit. When she is more stable we can initiate CPAP. 05/25/2025: Patient told me he tolerated his home CPAP with pressure of 11 but then increased to 11.5 and did well on these settings. Plan: Continue home CPAP pressure is 11.5. 05/26/2025: Patient slept with his home CPAP with a pressure of 11 and half that was he increased to 12 after he went to the restroom. 05/27/2025: Patient uses home CPAP last night. Plan: if biopsies are performed during bronchoscopy will hold CPAP for 3 days (5) Smoking: Code(s): F17.200 - Nicotine dependence, unspecified, uncomplicated Status: Acute Assessment and Plan: Patient with a 43 pack year tobacco use currently smoking 10 cigarettes a day. 05/24/2025: We briefly talked about tobacco cessation and he understands the importance of tobacco cessation. Subjective Date/time seen: 05/27/25 10:25 Interval history: 05/24/2025: This is a new pulmonary consult for hemoptysis with lung mass. 65-year-old with a history of hypertension, atrial fibrillation, peripheral arterial disease status post left mechanical thrombectomy and balloon Keenan GGO plasty and stenting to the left popliteal artery, left posterior tibial artery and left tibioperoneal trunk on 10/22/2022 on Eliquis 5 PO BID thereafter, morbid obesity with LÓPEZ on CPAP 11, tobacco use and GOLD grade 2 group E COPD. Regarding his COPD the patient was diagnosed within the last few months. He smoked tobacco from age 22 to current at 1 pack per day for total of 43 pack years. Currently smoking 10 cigarettes a day. His exposed to secondhand smoke from his father but none since. PFTs on 05/09/2025 demonstrate a moderate obstructive abnormality with a mild restrictive abnormality resulting in a moderately severe decrease in his FEV1 at 57%. FEV1: FVC ratio 60%, moderately decreased DLCO that corrects when adjusted for alveolar volume. He denies vaping or illicit drug use. 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 He denies sand blasting, weldi ng, professional painting, coal mining, construction work. He noticed dyspnea on exertion 3-4 years ago that has gotten progressively worse. One year ago he could walk 3/4 of a block. Recently he can walk 1/2 a block. He had no chronic cough or phlegm production until he developed pneumonia in January of 2025. Regarding his obstructive sleep apnea he had a CPAP titration on 06/06/2017 with a pressure of 11 controlling his oxygen and obstructive events. He does not have a [employer] company and purchased his machine. One year ago he increased his pressure to 11.5. Since January of 2025 he increased his pressure to 12. He does not routinely check his downloads. Patient had a history of atrial fibrillation but did not require Eliquis until he had a left lower leg arterial thrombus on 10/21/2022 and was started on Eliquis at that time. In January of 2025 the patient developed fever, cough, chills, sinus congestion, shortness of breath, increased phlegm production and wheezing. He saw his PCP who diagnosed him with a pneumonia and treated him with antibiotics and steroids for 7 days. He got better over the next week back to 50-60% of his baseline. Off of these medicines for 1 week he got worse and worse prescribed antibiotics and steroids and he says he got 30-40% better. Since then he has had good days and bad days. On a good day he feels the same as he did prior to his pneumonia in . On a bad day he produces thick white to clear phlegm 10-15 times a day has worsening shortness of breath. 05/14/2025: CT scan Report of the chest to evaluate his aorta which was d ictated on 05/21/2025. No comparison. Left hilar mass with complete collapse of the left lower lobe shift to the mediastinum to the left, mild centrilobular emphysema, multiple enlarged mediastinal and hilar lymph nodes. 05/21/2025 the patient was at his baseline with average amount of phlegm production, shortness of breath and dyspnea on exertion. On 05/22/2025 the patient took a sleeping pill and was anxious because he was told that his CT scan of the chest had a lung mass. He slept well but when he woke up on 05/23/2025 he had coughing paroxysms and the phlegm had blood. The blood ranged from flex, to streaks, to what sounds like veda blood clots and he coughed up blood to 30 times. 05/23/25: Patient presented to the emergency department with blood pressure 95/58, heart rate 78, respirations 24, room air saturations 96%. He had mild inspiratory wheezes. His white blood cell count was 8.8, his creatinine was 0.65, eosinophils 1.2%. BNP 807, troponin negative, INR 1.2, CT angiogram of the chest showed no PE, left lower lobe mass with extension to hilum with collapse of the left lower lobe, and large mediastinal and hilar lymphadenopathy. I was contacted by the emergency department we discussed the case and I instructed them to discontinue his Eliquis, initiate ceftriaxone, azithromycin and Flagyl. Initiate Solu-Medrol 40 q.6 and DuoNebs q.4 hours and guaifenesin 1200 p.o. b.i.d.. Plan was to leave patient NPO to be evaluated on 05/24/2025. 05/24/2025: Overall the patient states that his breathing is improved. He denies fever, chills, rigors or diaphoresis. He thinks that his hemoptysis is better. I asked him to expectorate and he had phlegm with flex and 1 streak of blood. He is afebrile. Patient was on room air with saturations 96%. White blood cell count 6.2, creatinine 0.65. 05/25/2025. Overall the patient tells me he is improved. His cough has decreased in frequency. There is less blood in his phlegm. His last hemoptysis was last night. He has no rest shortness of breath. His dyspnea on exertion is the same. He denies fever, chills, rigors and has made no phlegm this morning. He is on room air with saturations 96%. His white blood cell count is 11.7, his creatinine is 0.58. Yesterday he was positive 920 mL, cumulative he is positive 1.6 L since admission. His weight is 162.3 today. 05/26/25: overall the patient tells me he has improved. He is breathing normally at rest. His dyspnea on exertion is better. He overall he states he has 50-60% back to his normal. He has clear phlegm and last night had 1 episode of hemoptysis with a spot the size of his pinky tip. This morning he had dark red blood in the sputum the same amount. Patient is on room air with saturations 98%. White blood cell count 9.6, hemoglobin 15.6, creatinine 0.68. His weight today is 164. His chest x-ray shows retrocardiac consolidation with no change from 05/23/2025. Last night he wore his home CPAP on room air with a pressure of 11 and half that he increase to 12 after he got up and went to the bathroom. He said he slept well. 05/27/25: The patient tells me he is breathing better than he has since January of 2025. He still has a cough. He had 1 episode of sputum with dark red blood this morning. He denies fever chills. Yesterday afternoon he had a panic attack. Currently is on room air with saturations 98%. White blood cell count 9.6, creatinine 0.65, sodium 126. Weight today is 165.4. Chest x-ray shows left lower lobe consolidation with no change from 05/26/2025. Plan for bronchoscopy later today. DATA: 05/23/25: EXAMINATION: CTA chest PE protocol, 05/23/2025 16:50 CDT HISTORY: hemoptysis COMPARISON: No comparisons available. FINDINGS: No significant coronary calcification is present ([id number]) LUNGS: The contrast bolus is adequate, there is no pulmonary embolism identified. No tracheomalacia. No bronchiectasis. There is a large focus of abnormal density in the left lower lobe with no significant air bronchograms appreciated and occlusion of the bronchus in this location. Minimal emphysematous changes. No bullous formation. Minimal pulmonary fibrotic changes. No significant honeycombing is identified. There is volume loss in the left lung with mediastinal shift to the left. Scattered bilateral punctate calcified granulomas. HEART AND PERICARDIUM: Mild cardiomegaly. Trace pericardial effusion. AORTA: Normal caliber aorta.. PULMONARY ARTERIES: No pulmonary embolism ADENOPATHY/MEDIASTINUM: There are multiple enlarged lymph nodes within the med iastinum and the kathia the largest in the subcarinal space measuring 4 x 3.5 cm. LIMITED VIEWS OF THE ABDOMEN: Partially imaged large bilateral renal cysts the largest on the right side 8 x 6 cm incompletely evaluated, renal ultrasound is suggested. Minimal cholelithiasis. OSSEOUS STRUCTURES: No sclerotic or lytic lesions. No acute rib fractures. OVERLYING SOFT TISSUES: Unremarkable. THYROID: There are large cystic appearing bilateral thyroid nodules incompletely evaluated the largest on the right side 5 x 6 cm, ultrasound is recommended. IMPRESSION: 1. Negative for pulmonary embolism. Large area of abnormal density within the left lower which may reflect a large infiltrate with associated lymphadenopathy however there are no significant air bronchograms and the possibility of an obstructing endobronchial lesion should be considered. Metastases are not excluded. Bronchoscopy is suggested 05/14/2025: Dictated report on 05/21/2025 ( No images): CTA chest with and without contrast. Clinical data concern for enlarged aorta. Findings: There are multiple enlarged mediastinal and bilateral hilar lymph nodes. The lung windows demonstrate complete collapse of the left lower lobe. There is right to left mediastinal shift. There appears to be a left hilar mass that may extend into the distal left mainstem bronchus. There is mild centrilobular emphysema there are no suspicious pulmonary nodules throughout the aerated portions of the lung. Impression: There appears to be left hilar mass that extends into the distal left mainstem bronchus. This is concerning for primary bronchogenic carcinoma. There is associated complete collapse of the left lower lobe. Recommend further evaluation with bronchoscopy. 2. There are multiple enlarged mediastinal bilateral hilar lymph nodes, likely representing metastatic lymphadenopathy. PET-CT scan may provide additional information. 3. Diffuse enlargement of the thyroid gland. Recommend further evaluation with dedicated thyroid sonogram. 4. Mild cardiomegaly. There is diffuse coronary Atherosclerotic disease. 05/09/2025: This is a pulmonary function test with spirometry, plethysmography and diffusing capacity. The test was performed and results interpreted in accordance with the 2019 and 2005 ATS/ERS Task Force guidelines respectively using the Global Lung Function Initiative-2012 reference equations. Patient demonstrated good effort and cooperation. Reproducibility criteria were met. The quality of the spirometry maneuver was Grade A. Findings: Spirometry: There is decreased maximal expiratory airflow at all lung volumes with a concave expiratory flow tracing. The contour the inspiratory flow tracing is normal. The FVC is 3.83 L, 72% predicted. The FEV1 is 2.31 L, 57% predicted. The FEV1: FVC ratio is 60%. Plethysmography: The total lung capacity is 5.77 L, 72% predicted. The functional residual capacity is 3.26 L, 76% predicted. The residual volume is 1.70 L, 65% predicted. Diffusing capacity: The diffusing capacity unadjusted for hemoglobin and carboxyhemoglobin is 17.3, 59% predicted. The diffusing capacity adjusted for alveolar volume is 3.80, 99% predicted. Impression: There is a combined obstructive and restrictive ventilatory abnormality. There are no guidelines to assign the severity of obstruction and restriction with a combined abnormality. In my opinion, given the moderately concave expiratory flow tracing, mildly decreased FEV1: FVC ratio and mild restrictive abnormality I would state there is a moderate obstructive abnormality and a mild restrictive abnormality resulting in a moderately severe decrease in the FEV1. The diffusing capacity unadjusted for hemoglobin and carboxyhemoglobin is moderately decreased and normalizes when adjusted for alveolar volume. There are no prior studies for comparison 04/25/2025: Echocardiogram report from [facility]: Conclusions: 1. Mild concentric hypertrophy with normal LV size and low normal function with EF 50-55%. RV appears to have good function from subcostal view. Both atria are dilated. Mild degenerative alveolar changes. Mitral valve: Posterior calcification, valve opens well. I disagree with mean gradient measurement. Aortic valve is trileaflet with sclerosis and mildly elevated peak velocity. There is mild to moderate AI. Aortic root is 4.2 cm. Ascending aorta 4.0 cm. Tricuspid valve: The estimated RVSP is 23. 03/05/2025: Clinical Indication: Pneumonia PA and lateral views of the chest: Comparison: 05/25/2017 Findings: There is central congestive change and possible minimal bibasilar pulmonary edema. Cardiomediastinal silhouette is within normal limits. Bones and soft tissues are unremarkable. Impression: Central congestive change and possible minimal bibasilar pulmonary edema. 06/02/2017: CPAP titration: DATE OF STUDY: June 02, 2017. The patient is a 57-year-old man, 76 inches in height, weighing 340 pounds with a body mass index of 41.4. His last polysomnogram that I have here was dated August 05, 2003, and it was a split night polysomnogram then. The patient was titrated with CPAP from 5 to 10 cm of water and appeared to have optimum level achieved at 9 cm of water. The patient is now back for CPAP retitration. DIAGNOSTIC IMPRESSION: Adequate titration of CPAP to a final pressure of 11 cm of water was noted with correction of respiratory events. Oxygen saturations also stabilized. Sleep efficiency was very good at that level of CPAP. The patient spent the entire time in the supine position at that level of CPAP. We will recommend CPAP at 11 cm of water with a heated humidifier for added comfort. The patient was titrated with his own medium Breeze nasal pillow mask Review of Systems Constitutional: Constitutional: Reports no additional constitutional complaints Eyes: Eyes: Reports no additional eye complaints ENT: Reports system reviewed and no additional complaints, except as documented Cardiovascular: Cardiovascular: Reports no additional cardiovascular complaints Respiratory: Respiratory: Reports no additional respiratory complaints Gastrointestinal: Gastrointestinal: Reports no additional gastrointestinal complaints Musculoskeletal: Musculoskeletal: Reports no additional musculoskeletal complaints Neurologic: Reports system reviewed and no additional complaints, except as d ocumented Psychiatric: Psychiatric: Reports no additional psychiatric complaints Endocrine: Endocrine: Reports no additional endocrine complaints Hematologic/Lymphatic: Hematologic/Lymphatic: Reports no additional hematologic/lymphatic complaints Allergic/Immunologic: Allergic/Immunologic: Reports no additional allergic/immunologic complaints Exam Const: General: cooperative and comfortable Orientation/consciousness: oriented to person, oriented to place and oriented to time Other: obese in distress on room air HENMT: Head: normal to inspection Ears: hearing grossly normal bilaterally Eyes: General: appearance normal, both eyes and all related structures Neck: Neck: normal visual inspection Chest: Chest palpation & inspection: normal inspection of the chest Resp: Effort & Inspection: normal respiratory effort and able to speak in complete sentences Auscultation: no crackles, no rales, no rhonchi, wheezes and diminished lung sounds Other: Few wheezes and diminished sounds left lung base Cardio: Jugular venous distension: no JVD GI: Inspection: normal to inspection Skin: General skin exam: normal color Neuro: General: oriented to person, oriented to place and oriented to time Extrem: General: normal to inspection and no edema Psych: Appearance: grossly normal Objective Data Vital Signs Vital Signs: Vital Signs - 24 hr 05/26/25 12:00 05/26/25 12:47 05/26/25 12:52 Temperature Pulse Rate 79 70 72 Respiratory Rate 16 16 Blood Pressure Pulse Oximetry Oxygen Delivery 05/26/25 16:00 05/26/25 16:14 05/26/25 16:30 Temperature 36.2 C L Pulse Rate 75 79 85 Respiratory Rate 18 16 Blood Pressure 128/67 Pulse Oximetry 96 Oxygen Delivery 05/26/25 16:38 05/26/25 19:33 05/26/25 19:39 Temperature 36.5 C Pulse Rate 81 87 90 Respiratory Rate 16 20 16 Blood Pressure 126/74 Pulse Oximetry 95 Oxygen Delivery 05/26/25 19:45 05/26/25 20:00 05/26/25 20:00 Temperature Pulse Rate 90 80 Respiratory Rate 16 Blood Pressure Pulse Oximetry Oxygen Delivery Room Air 05/27/25 00:00 05/27/25 02:00 05/27/25 02:57 Temperature 36.4 C Pulse Rate 79 67 Respiratory Rate 20 Blood Pressure 133/67 Pulse Oximetry 96 Oxygen Delivery CPAP 05/27/25 04:00 05/27/25 07:41 05/27/25 07:47 Temperature Pulse Rate 66 79 82 Respiratory Rate 16 16 Blood Pressure Pulse Oximetry Oxygen Delivery 05/27/25 09:57 Temperature Pulse Rate 80 Respiratory Rate Blood Pressure Pulse Oximetry Oxygen Delivery Intake/Output Intake/Output: Intake & Output 05/24/25 05/25/25 05/26/25 05/27/25 23:59 23:59 23:59 23:59 Intake Total 1320 2060 2230 240 Output Total 400 175 Balance 920 1885 2230 240 Meds/Results Medications: Active Medications Generic Name Dose Route Start Last Admin Trade Name Freq PRN Reason Stop Dose Admin Acetaminophen 500 mg 05/24/25 08:49 05/26/25 15:02 Acetaminophen 500 Mg Tablet PO 500 mg Q4H PRN Administration Mild Pain (1-3) or Fever Albuterol/Ipratropium 3 ml 05/24/25 08:55 05/26/25 05:38 Ipratropium 0.5 Mg/Albuterol Sulfate 2.5 Mg Ampul.Neb 3 Ml INHALATION 3 ml Q6HR PRN Administration Shortness Of Breath Albuterol/Ipratropium 3 ml 05/25/25 16:00 05/27/25 07:41 Ipratropium 0.5 Mg/Albuterol Sulfate 2.5 Mg Ampul.Neb 3 Ml INHALATION 3 ml [id number] SONYA Administration Amlodipine Besylate 10 mg 05/24/25 09:00 05/27/25 09:58 Amlodipine Besylate 10 Mg Tablet PO 10 mg DAILY SONYA Administration Atorvastatin Calcium 40 mg 05/23/25 21:45 05/26/25 20:21 Atorvastatin 40 Mg Tablet PO 40 mg HS SONYA Administration Azithromycin 500 mg 05/27/25 21:00 Azithromycin 500 Mg Tablet PO 05/27/25 21:01 ONCE ONE Escitalopram Oxalate 5 mg 05/24/25 09:00 05/27/25 09:57 Escitalopram Oxalate 5 Mg Tablet PO 5 mg DAILY SONYA Administration Guaifenesin 1,200 mg 05/23/25 21:00 05/27/25 09:58 Guaifenesin 12 Hr 600 Mg Tabcr PO 1,200 mg Q12HR SONYA Administration Hydralazine HCl 50 mg 05/23/25 22:00 05/27/25 07:43 Hydralazine Hcl 50 Mg Tablet PO Not Given Q8HR SONYA Metronidazole 500 mg in 100 mls @ 100 mls/hr 05/23/25 22:00 05/27/25 06:39 Flagyl 500 Mg/Iso Soln 100 Ml IVPB 05/27/25 14:59 100 mls/hr Q8H SONYA Administration Ceftriaxone Sodium 1 gm/ 50 mls @ 100 mls/hr 05/24/25 21:00 05/26/25 20:54 Sodium Chloride IVPB Infused Q24H SONYA Infusion Isosorbide Mononitrate 30 mg 05/24/25 09:00 05/27/25 09:58 Isosorbide Mononitrate 30 Mg Tab.Er.24h PO 30 mg DAILY SONYA Administration Lisinopril 20 mg 05/24/25 09:00 05/27/25 09:58 Lisinopril 20 Mg Tablet PO Not Given QAM SONYA Lorazepam 0.5 mg 05/23/25 21:35 05/27/25 09:57 Lorazepam (*Crx) 0.5 Mg Tablet PO 0.5 mg BID PRN Administration Anxiety Metoprolol Succinate 200 mg 05/24/25 09:00 05/27/25 09:57 Metoprolol Succinate Ext Rel 100 Mg Tabcr PO 200 mg DAILY SONYA Administration Metronidazole 500 mg 05/27/25 22:00 Metronidazole 500 Mg Tablet PO Q8HR SONYA Multivitamins Therapeutic 1 tablet 05/24/25 09:00 05/27/25 09:57 Multivitamins Therapeutic Tab (*Bkc) PO 1 tablet QAM SONYA Administration Nicotine 1 patch 05/23/25 20:55 05/27/25 10:07 Nicotine (*Pbkc) 21 Mg Patch TRANSDERM 1 patch DAILY SONYA Administration Oxymetazoline HCl 1 spray 05/23/25 22:53 05/23/25 23:42 Oxymetazoline Hcl 0.05% Jewel 15 Ml Btl (*Bkc) NASAL 1 spray Q12HR PRN Administration Congestion Pantoprazole Sodium 40 mg 05/24/25 09:00 05/27/25 09:57 Pantoprazole 40 Mg Tablet PO 40 mg QAM SONYA Administration Prednisone 40 mg 05/24/25 11:55 05/27/25 09:57 Prednisone 20 Mg Tablet PO 40 mg DAILY@0800 SONYA Administration Sodium Chloride 1 spray 05/23/25 21:38 05/23/25 22:24 Saline 0.65% Jewel Soln 44 Ml Btl NASAL 1 spray Q6HR PRN Administration Congestion Tamsulosin HCl 0.4 mg 05/23/25 21:50 05/27/25 09:57 Tamsulosin Hcl 0.4 Mg Capsule PO 0.4 mg Q12HR SONYA Administration Radiology Results: ITS Impressions Chest CTA 05/23/25 17:05 IMPRESSION: 1. Negative for pulmonary embolism. Large area of abnormal density within the left lower which may reflect a large infiltrate with associated lymphadenopathy however there are no significant air bronchograms and the possibility of an obstructing endobronchial lesion should be considered. Metastases are not excluded. Bronchoscopy is suggested Thyroid Ultrasound 05/24/25 12:29 IMPRESSION: 1. There is a 3.1 cm nodule in the left mid thyroid lobe. A fine needle aspiration is recommended. 2. There is a 5.6 cm mildly complicated cyst in the right thyroid lobe. 3. There is a 3 cm cyst in the left thyroid lobe. Chest X-Ray 05/27/25 09:48 IMPRESSION: 1. Developing unilateral interstitial pulmonary edema and/or pneumonitis right lung. Labs Labs: Laboratory Results - last 24 hr 05/27/25 04:33 WBC 9.6 RBC 4.92 Hgb 15.1 Hct 45.1 MCV 91.7 MCH 30.7 MCHC 33.5 RDW 13.6 Plt Count 208 MPV 9.5 Immature Gran % (Auto) 2.1 H Neut % (Auto) 52.2 Lymph % (Auto) 32.3 [place] % (Auto) 12.4 H Eos % (Auto) 0.6 Baso % (Auto) 0.4 Lymph # (Auto) 3.10 [place] # (Auto) 1.2 H Eos # (Auto) 0.1 Baso # (Auto) 0.0 Abs Immat Gran (auto) 0.20 H Absolute Neuts (auto) 5.0 Absolute Nucleated RBC 0.000 Nucleated RBC % 0.0 Sodium 126 L Potassium 3.4 Chloride 101 Carbon Dioxide 22 Anion Gap 3 L BUN 11 Creatinine 0.65 L Estim Creat Clear Calc 164 Estimated GFR > 60 Glucose 96 Calcium 8.0 L Total Bilirubin 1.1 AST 46 ALT 47 Alkaline Phosphatase 79 Total Protein 5.6 L Albumin 3.1 L
[2025-05-27] MEDS: AZELASTINE HCL NASAL 0.1% 137 MCG/SPR 30 ML BTL 2 SPRAY NASAL ×2 (13:15→22:01)
[2025-05-27] MEDS: LACTATED RINGERS 1,000 ML 150 ML IV CONT (13:51)
--- NOTE | 2025-05-27 14:17 | P.PNAN_ITS ---
Anes - Initial Pre Proc Eval Procedure: Operation Date: 05/27/25 15:45 Proposed Procedures p Flexible Bronchoscopy w Fluoro - Peter Krishna MD Date/Time: 05/27/25 14:17 Surgeon: Brigido Harmon MD Pre Op Diagnosis: HEMOPTYSIS/Lung Mass Patient Data Age: 65 Gender: M Height: 1.93 m Weight: 165.4 kg Last Vital Signs Temp 97.4 F L 05/27/25 13:53 Pulse 74 05/27/25 13:53 Resp 20 05/27/25 13:53 BP 130/66 05/27/25 13:53 Pulse Ox 97 05/27/25 13:53 O2 Del Method Room Air 05/27/25 13:53 Allergies Allergy/AdvReac Type Severity Reaction Status Date / Time No Known Allergies Allergy Verified 05/27/25 13:48 Home Medications ?Medication ?Instructions ?Recorded ?Confirmed ?Type Adults Multivitamin 1 tab-cap PO DAILY 03/16/22 05/23/25 History Glucosamine Chondroitin 2 tab-cap PO DAILY 03/16/22 05/23/25 History aspirin 81 mg tablet,delayed 81 mg PO DAILY 11/01/22 0 05/23/25 History release (Adult Low Dose Aspirin) amlodipine 10 mg-benazepril 20 mg 1 cap PO DAILY #90 c aps 08/27/24 05/23/25 Rx capsule (Lotrel) apixaban 5 mg tablet (Eliquis) 5 mg PO BID #180 tabs 1 05/23/25 Rx atorvastatin 40 mg tablet 40 mg PO HS #90 tabs 4 05/23/25 Rx hydralazine 50 mg tablet 50 mg PO TID #270 tabs 08/2705/23/25 Rx isosorbide mononitrate 30 mg 30 mg PO DAILY #90 tabs 1 05/23/25 Rx tablet,extended release 24 hr metoprolol succinate 200 mg 200 mg PO DAILY #90 tabs 1 05/23/25 Rx tablet,extended release 24 hr omeprazole 20 mg capsule,delayed 20 mg PO DAILY #90 ca ps 08/27/24 05/23/25 Rx release tamsulosin 0.4 mg capsule 0.4 mg PO BID #180 caps 07/3105/23/25 Rx halobetasol propionate 0.05 % 1 applic topical DAILY # 15 grams 11/27/24 05/23/25 Rx topical cream fluticasone 500 mcg-salmeterol 50 1 inh inhalation Q12 H #60 ea 05/07/25 05/23/25 Rx mcg/dose blistr powdr for inhalation (Advair Diskus) albuterol sulfate 90 mcg/actuation 1 inh inhalation Q4 H PRN shortness 05/19/25 05/23/25 Rx aerosol inhaler (Ventolin HFA) of breath or wheezing # 6.7 grams escitalopram oxalate 5 mg tablet 5 mg PO DAILY #30 tab s 05/22/25 05/23/25 Rx lorazepam 0.5 mg tablet 0.5 mg PO BID PRN anxiety #2 0 tabs 05/22/25 05/23/25 Rx roflumilast 250 mcg tablet 250 mcg PO DAILY 4 weeks #2 8 tabs 05/22/25 05/23/25 Rx Laboratory Tests 05/25/25 05/27/25 04:42 04:33 WBC 9.6 K/mm3 (4.5-10.0) RBC 4.92 M/mm3 (4.6-6.20) Hgb 15.1 g/dL (14.0-18.0) Hct 45.1 % (42.0-52.0) MCV 91.7 fl (80-100) MCH 30.7 pg (26-34) MCHC 33.5 g/dl (32-36) RDW 13.6 % (11.5-14.5) Plt Count 208 k/mm3 (150-375) MPV 9.5 fl (7.4-10.4) Immature Gran % (Auto) 2.1 H % (0-0.5) Neut % (Auto) 52.2 % (45.5-73.1) Lymph % (Auto) 32.3 % (18.3-44.2) [place] % (Auto) 12.4 H % (2.6-8.5) Eos % (Auto) 0.6 % (0-4.4) Baso % (Auto) 0.4 % (0.2-1.2) Lymph # (Auto) 3.10 K/mm3 (0.9-3.2) [place] # (Auto) 1.2 H K/mm3 (0.1-0.6) Eos # (Auto) 0.1 K/mm3 (0-0.3) Baso # (Auto) 0.0 K/mm3 (0.0-0.1) Abs Immat Gran (auto) 0.20 H K/mm3 (0.00-0.031) Absolute Neuts (auto) 5.0 K/mm3 (1.3-6.7) Absolute Nucleated RBC 0.000 K/mm3 (0.0-0.012) Nucleated RBC % 0.0 % (0.0-0.2) Sodium 126 L mmol/L (137-145) Potassium 3.4 mmol/L (3.4-5.0) Chloride 101 mmol/L (98-107) Carbon Dioxide 22 mmol/L (22-30) Anion Gap 3 L mmol/L (4-12) BUN 11 mg/dL (9-20) Creatinine 0.65 L mg/dL (0.7-1.3) Estim Creat Clear Calc 164 ml/min Estimated GFR > 60 (59 - ) Glucose 96 mg/dL (65-110) Calcium 8.0 L mg/dL (8.4-10.2) Total Bilirubin 1.1 mg/dL (0.2-1.3) AST 46 U/L (17-59) ALT 47 U/L (6-50) Alkaline Phosphatase 79 U/L (38-126) Total Protein 5.6 L g/dL (6.3-8.2) Albumin 3.1 L g/dL (3.5-5.1) M.pneumoniae IgM Titer <770 U/mL (0-769) Patient hx anesthesia problems: other (Pt reports 48 hours of muscle aches after GA in the past deemed due to succinylcholine. Pt reports no other high temps or prolonged intubation. ) Family hx anesthesia problems: none Results Review: All pre-operative results and documents have been reviewed as part of the pre- operative evaluation. [facility] Past Medical History Medical History Nicotine abuse Hyponatremia Smoking Left popliteal artery occlusion Morbid obesity with BMI of 40.0-44.9, adult BPH loc w urin obs/LUTS Chronic atrial fibrillation Essential hypertension Mixed hyperlipidemia Nonrheumatic aortic valve insufficiency LÓPEZ (obstructive sleep apnea) Surgical History Surgical History H/O varicose vein stripping right History of oral cancer Family History Family History Father Hypertension Malignant neoplasm of prostate Family history of lung cancer Mother Hypertension Sibling Malignant neoplasm of prostate Social History Social History Smoking packs per day: 1 Smoking cigarettes per day: 20.0 Years smoked: 40 Smoking pack-years: 40.00 Smoking status: Current every day smoker Tobacco type: cigarettes Smokeless tobacco user: other Second hand tobacco smoke exposure: No Alcohol intake: former Drinks per week: 0 Alcohol use details: rare Substance use: never Substance use type: does not use Do You Feel Safe in your Home?: Yes Lack of Transportation: YES Lack of Food: Never True Current Housing: I Have Housing Concerned About Future Housing: No Difficulty Paying Gas/Electric Bills: No Difficulty Paying for Meds: No Currently Unemployed: No Education: Bachelor's Degree Difficulty w/ Childcare or Family Care: No Living arrangements: alone Occupation/Education: retired Gender identity (if verbalized by the patient): Male Sexual Orientation (if Verbalized by the Patient): Straight or Heterosexual Spiritual care concerns: No Anes - Eval Final PreProcedure Day of Procedure 05/27/25 14:17 Patient weight: morbidly obese Lungs: normal air movement and decreased breath sounds Airway: Mallampati scale class III Neurological: alert and oriented Last oral intake: >/= 8 hours ASA classification: IV Emergent: no Anesthetic plan: proceed Anesthesia type and monitoring: general ETT and standard monitoring Results Review: All pre-operative results and documents have been reviewed as part of the pre- operative evaluation. Complicated pt noted w pulmon mass, now for bronch. HTN, hyperlipidemia, COPD noted, 40 plus pack year smoker, w LÓPEZ. Full discussion w pt and family member at bedside. I also discussed poss post op mechanical vent and ICU admission. They understand and wish to proceed. Informed Consent: The patient's anesthetic plan and its attendant risks and benefits were discussed with the patient/family/POA. Questions were solicited and answers provided to the satisfaction of the patient/family/POA.
[2025-05-27] MEDS: SODIUM CHLORIDE 0.9% IV 500 ML BAG 20 ML IRRIGATION (15:10)
[2025-05-27] MEDS: LIDOCAINE 2% LOCAL INJ 20 ML VIAL 4 ML INFILTRATE (15:12)
--- NOTE | 2025-05-27 15:26 | S_PTH ---
PATIENT: Devin Smith LOC: [id number] U#:[id number] AGE/SX: 65/M ROOM: 240 RE05/23/[address]: Dinesh Jose PA-C : 1960 BED: 01 DIS: 05/28/2025 SPEC #: [id number] RECD: 05/28/25 07:22 STATUS: JAM REEnedelia #: [id number] MILES: 05/27/25 15:[address]: Peter Krishna DEPT: [facility] Surgical RECD BY: Nancy Hernandez ENTERED: 05/28/25 07:23 SP TYPE: Surgical OTHR DR: MD Kb Mcclain MD Edmund R. Bruning, PA-C Christopher Farrar, MD Tissues: A - Lung Biopsy B - Bronchial Brushing C - Bronchial Washing D - Bronchial Brushing E - Bronchial Brushing Procedures: TTF Unstained Slides Hematoxylin and Eosin Stain Cell Block PAP Stain Gross and Microscopic Level 4 Synaptoshysin Chromogranin Stain Cytopathology Cytospin Mib
--- NOTE | 2025-05-27 19:15 | WPDONCCN ---
Assessment and Plan Assessment and plan (1) Lung mass: Code(s): R91.8 - Other nonspecific abnormal finding of lung field Status: Acute Assessment and Plan: This is a pleasant obese male with history of smoking came into the hospital with shortness of breath and hemoptysis getting worse since January of 2025. He denies any weight loss. CTA chest showed no evidence of pulmonary embolism. There is a large area of abnormal density in the left lower lobe which may reflect large infiltrate with associated lymphadenopathy. There was also possibility of endobronchial obstructing lesion. Patient had bronchoscopy done today and pathology reports pending. I have provided him my office information for follow-up and further workup for possible lung mass/malignancy. I have answered all the questions to patient's satisfaction. HPI Data of Consult Date/Time: 05/27/25 19:15 Requesting Physician: Brigido Harmon MD Primary Care Provider: Kb Elkins MD Consult Narrative Narrative: Devin Smith is a 65 year old male with history of smoking and continues to smoke almost a pack a day along with atrial fibrillation, BPH, hypertension, hyperlipidemia and obstructive sleep apnea came into the ER with shortness of breath and hemoptysis going on off and on since January of 2025. CTA chest was performed that showed no evidence of pulmonary embolism but there was enlarged abnormal density in the left lower lobe and bronchoscopy was suggested. Patient had bronchoscopy done today. Pathology report is pending. He has no previous history of malignancy. He denies any weight loss. He denies any other new complaints. Review of Systems Review of Systems: Twelve point review of system was reviewed [facility] Past Medical History Medical History Nicotine abuse Hyponatremia Smoking Left popliteal artery occlusion Morbid obesity with BMI of 40.0-44.9, adult BPH loc w urin obs/LUTS Chronic atrial fibrillation Essential hypertension Mixed hyperlipidemia Nonrheumatic aortic valve insufficiency LÓPEZ (obstructive sleep apnea) Surgical History Surgical History H/O varicose vein stripping right History of oral cancer Family History Family History Father Hypertension Malignant neoplasm of prostate Family history of lung cancer Mother Hypertension Sibling Malignant neoplasm of prostate Social History Social History Smoking packs per day: 1 Smoking cigarettes per day: 20.0 Years smoked: 40 Smoking pack-years: 40.00 Smoking status: Current every day smoker Tobacco type: cigarettes Smokeless tobacco user: other Second hand tobacco smoke exposure: No Alcohol intake: former Drinks per week: 0 Alcohol use details: rare Substance use: never Substance use type: does not use Do You Feel Safe in your Home?: Yes Lack of Transportation: YES Lack of Food: Never True Current Housing: I Have Housing Concerned About Future Housing: No Difficulty Paying Gas/Electric Bills: No Difficulty Paying for Meds: No Currently Unemployed: No Education: Bachelor's Degree Difficulty w/ Childcare or Family Care: No Living arrangements: alone Occupation/Education: retired Gender identity (if verbalized by the patient): Male Sexual Orientation (if Verbalized by the Patient): Straight or Heterosexual Spiritual care concerns: No Meds Home Medications and Allergies Home Medications ?Medication ?Instructions ?Recorded ?Confirmed ?Type Adults Multivitamin 1 tab-cap PO DAILY 03/16/22 05/23/25 History Glucosamine Chondroitin 2 tab-cap PO DAILY 03/16/22 05/23/25 History aspirin 81 mg tablet,delayed 81 mg PO DAILY 11/01/22 05/23/25 History release (Adult Low Dose Aspirin) amlodipine 10 mg-benazepril 20 mg 1 cap PO DAILY #90 caps 08/27/24 05/23/25 Rx capsule (Lotrel) apixaban 5 mg tablet (Eliquis) 5 mg PO BID #180 tabs 08/27/24 05/23/25 Rx atorvastatin 40 mg tablet 40 mg PO HS #90 tabs 08/27/24 05/23/25 Rx hydralazine 50 mg tablet 50 mg PO TID #270 tabs 08/27/24 05/23/25 Rx isosorbide mononitrate 30 mg 30 mg PO DAILY #90 tabs 08/27/24 05/23/25 Rx tablet,extended release 24 hr metoprolol succinate 200 mg 200 mg PO DAILY #90 tabs 08/27/24 05/23/25 Rx tablet,extended release 24 hr omeprazole 20 mg capsule,delayed 20 mg PO DAILY #90 caps 08/27/24 05/23/25 Rx release tamsulosin 0.4 mg capsule 0.4 mg PO BID #180 caps 08/27/24 05/23/25 Rx halobetasol propionate 0.05 % 1 applic topical DAILY #15 grams 11/27/24 05/23/25 Rx topical cream fluticasone 500 mcg-salmeterol 50 1 inh inhalation Q12H #60 ea 05/07/25 05/23/25 Rx mcg/dose blistr powdr for inhalation (Advair Diskus) albuterol sulfate 90 mcg/actuation 1 inh inhalation Q4H PRN shortness 05/19/25 05/23/25 Rx aerosol inhaler (Ventolin HFA) of breath or wheezing #6.7 grams escitalopram oxalate 5 mg tablet 5 mg PO DAILY #30 tabs 05/22/25 05/23/25 Rx lorazepam 0.5 mg tablet 0.5 mg PO BID PRN anxiety #20 tabs 05/22/25 05/23/25 Rx roflumilast 250 mcg tablet 250 mcg PO DAILY 4 weeks #28 tabs 05/22/25 05/23/25 Rx Allergies Allergy/AdvReac Type Severity Reaction Status Date / Time No Known Allergies Allergy Verified 05/27/25 13:48 Vital Signs Vital Signs - 24 hr 05/26/25 19:33 05/26/25 19:39 05/26/25 19:45 Temperature 36.5 C Pulse Rate 87 90 90 Respiratory Rate 20 16 16 Blood Pressure 126/74 Pulse Oximetry 95 Oxygen Delivery Oxygen Flow Rate 05/26/25 20:00 05/26/25 20:00 05/27/25 00:00 Temperature Pulse Rate 80 79 Respiratory Rate Blood Pressure Pulse Oximetry Oxygen Delivery Room Air Oxygen Flow Rate 05/27/25 02:00 05/27/25 02:57 05/27/25 04:00 Temperature 36.4 C Pulse Rate 67 66 Respiratory Rate 20 Blood Pressure 133/67 Pulse Oximetry 96 Oxygen Delivery CPAP Oxygen Flow Rate 05/27/25 07:41 05/27/25 07:47 05/27/25 08:00 Temperature Pulse Rate 79 82 Respiratory Rate 16 16 Blood Pressure Pulse Oximetry Oxygen Delivery Room Air Oxygen Flow Rate 05/27/25 08:00 05/27/25 09:57 05/27/25 12:00 Temperature Pulse Rate 89 80 59 L Respiratory Rate Blood Pressure Pulse Oximetry Oxygen Delivery Oxygen Flow Rate 05/27/25 13:02 05/27/25 13:06 05/27/25 13:07 Temperature 36.2 C L Pulse Rate 63 64 68 Respiratory Rate 16 18 16 Blood Pressure 124/71 Pulse Oximetry 100 Oxygen Delivery Oxygen Flow Rate 05/27/25 13:53 05/27/25 15:09 05/27/25 15:19 Temperature 36.3 C L 35.4 C L Pulse Rate 74 68 71 Respiratory Rate 20 26 H 32 H Blood Pressure 130/66 83/43 L 96/68 L Pulse Oximetry 97 95 97 Oxygen Delivery Room Air Simple Face Mask Simple Face Mask Oxygen Flow Rate 6 6 05/27/25 15:29 05/27/25 15:39 05/27/25 15:49 Temperature Pulse Rate 72 69 74 Respiratory Rate 25 H 20 16 Blood Pressure 93/48 L 95/48 L 97/49 L Pulse Oximetry 94 96 96 Oxygen Delivery Nasal Cannula Nasal Cannula Nasal Cannula Oxygen Flow Rate 6 6 4 05/27/25 15:59 05/27/25 16:30 05/27/25 16:50 Temperature 36.5 C 36.4 C L Pulse Rate 60 72 62 Respiratory Rate 26 H 20 16 Blood Pressure 90/52 L 117/53 L Pulse Oximetry 96 98 Oxygen Delivery Room Air Oxygen Flow Rate 05/27/25 16:56 Temperature Pulse Rate 63 Respiratory Rate 16 Blood Pressure Pulse Oximetry Oxygen Delivery Oxygen Flow Rate Exam Narrative: Lungs are clear to auscultation bilaterally Cardiovascular regular rate rhythm no murmurs Abdomen soft nontender nondistended Extremities no edema Results Labs 05/27/25 04:33 05/27/25 04:33 Labs: Short CBC 05/27/25 Range/Units 04:33 WBC 9.6 (4.5-10.0) K/mm3 Hgb 15.1 (14.0-18.0) g/dL Hct 45.1 (42.0-52.0) % Plt Count 208 (150-375) k/mm3 [facility] 05/27/25 04:33 Sodium 126 L Potassium 3.4 Chloride 101 Carbon Dioxide 22 BUN 11 Creatinine 0.65 L Glucose 96 Calcium 8.0 L Liver Function 05/27/25 Range/Units 04:33 Total Bilirubin 1.1 (0.2-1.3) mg/dL AST 46 (17-59) U/L ALT 47 (6-50) U/L Alkaline Phosphatase 79 (38-126) U/L Albumin 3.1 L (3.5-5.1) g/dL
[2025-05-27] MEDS: ATORVASTATIN 40 MG TABLET PO (21:25)
[2025-05-27] MEDS: ACETAMINOPHEN 500 MG TABLET PO (21:26)
[2025-05-27] MEDS: cefTRIAXone 1 GM in SODIUM CHLORIDE 0.9% IV 50 ML 100 ML IVPB (21:27)
[2025-05-27] MEDS: AZITHROMYCIN 500 MG TABLET PO (22:02)
[2025-05-28] VITALS (10 sets, daily range): BP systolic 136–142; BP diastolic 52–68; PULSE 58–89; RESP 16–18; TEMP 36.6; O2SAT 94–96
[2025-05-28] MEDS: ACETAMINOPHEN 500 MG TABLET PO ×2 (02:57→09:08)
[2025-05-28 05:25] LABS: Hematocrit 44.6 % (42.0-52.0); Hemoglobin 15.1 g/dL (14.0-18.0); Immature Granulocyte Percent A 1.7 % (0-0.5); Lymphocytes Absolute Auto 3.32 K/mm3 (0.9-3.2); Mean Corpuscular HGB Conc 33.9 g/dl (32-36); Mean Corpuscular Hemoglobin 30.8 pg (26-34); Mean Corpuscular Volume 91.0 fl (80-100); Nucleated Red Blood Cells Absolute Auto 0.000 K/mm3 (0.0-0.012); Nucleated Red Blood Cells Perc 0.0 % (0.0-0.2); Platelet Count Result 217 k/mm3 (150-375); Red Blood Count 4.90 M/mm3 (4.6-6.20); White Blood Count 10.1 K/mm3 (4.5-10.0)
[2025-05-28 05:40] LABS: Alanine Aminotransferase 66 U/L (6-50); Albumin Level 3.4 g/dL (3.5-5.1); Alkaline Phosphatase 75 U/L (38-126); Anion Gap 7 mmol/L (4-12); Aspartate Amino Transferase 51 U/L (17-59); Bilirubin,Total 1.1 mg/dL (0.2-1.3); Blood Urea Nitrogen 12 mg/dL (9-20); Calcium 8.3 mg/dL (8.4-10.2); Carbon Dioxide 23 mmol/L (22-30); Chloride 99 mmol/L (98-107); Estimated CRCL calculation 175 ml/min; Estimated Glomerular Filt Rate > 60; Glucose 99 mg/dL (65-110); Potassium 3.7 mmol/L (3.4-5.0); Sodium 129 mmol/L (137-145); Total Protein 5.8 g/dL (6.3-8.2)
[2025-05-28] MEDS: IPRATROPIUM 0.5 MG/ALBUTEROL SULFATE 2.5 MG AMPUL.NEB 3 ML INHALATION ×2 (07:04→11:08)
[2025-05-28] MEDS: ESCITALOPRAM OXALATE 5 MG TABLET PO (09:00)
[2025-05-28] MEDS: ASPIRIN 81 MG ENTERIC TABLET PO (09:00)
[2025-05-28] MEDS: METOPROLOL SUCCINATE EXT REL 100 MG TABCR 200 MG PO (09:01)
[2025-05-28] MEDS: ISOSORBIDE MONONITRATE 30 MG TAB.ER.24H PO (09:01)
[2025-05-28] MEDS: guaiFENesin 12 HR 600 MG TABCR 1200 MG PO (09:01)
[2025-05-28] MEDS: TAMSULOSIN HCL 0.4 MG CAPSULE PO (09:02)
[2025-05-28] MEDS: MULTIVITAMINS THERAPEUTIC TAB (*BKC) 1 TABLET PO (09:02)
[2025-05-28] MEDS: PANTOPRAZOLE 40 MG TABLET PO (09:02)
[2025-05-28] MEDS: NICOTINE (*PBKC) 21 MG PATCH 1 PATCH TRANSDERM (09:02)
[2025-05-28] MEDS: AZELASTINE HCL NASAL 0.1% 137 MCG/SPR 30 ML BTL 2 SPRAY NASAL (09:04)
--- NOTE | 2025-05-28 09:08 | P.PNPL_ITS ---
Progress Note: A&P Assessment and Plan (1) Lung mass: Code(s): R91.8 - Other nonspecific abnormal finding of lung field Status: Acute Assessment and Plan: Patient with 43 pack year tobacco use currently smoking 10 cigarettes a day, 20 lb weight loss since January of 2025, hemoptysis, left lung and hilar mass with collapse of the left lower lobe, presents with 1 day of hemoptysis. plan: Concern for lung cancer. I discussed and reviewed the CT scan of the chest with the radiologist and given the proximal nature of his mass best diagnostic procedure is bronchoscopy. Patient currently has mild wheezing and will treat for COPD and pneumonia over the next 48 hours. We will then reassess for bronchoscopy with possible Louise needle biopsy of subcarinal lymph nodes on 05/27/2025. 05/25/2025. Overall the patient tells me he is improved. His cough has decreased in frequency. There is less blood in his phlegm. His last hemoptysis was last night. He has no rest shortness of breath. His dyspnea on exertion is the same. He denies fever, chills, rigors and has made no phlegm this morning. He is on room air with saturations 96%. His white blood cell count is 11.7, his creatinine is 0.58. Yesterday he was positive 920 mL, cumulative he is positive 1.6 L since admission. His weight is 162.3 today. Plan: patient is improving and if he remains clinically stable will consider bronchoscopy on 05/27/2025. 05/26/25: overall the patient tells me he has improved. He is breathing normally at rest. His dyspnea on exertion is better. He overall he states he has 50-60% back to his normal. Patient is on room air with saturations 98%. White blood cell count 9.6, hemoglobin 15.6, creatinine 0.68. His weight today is 164. His chest x-ray shows retrocardiac consolidation with no change from 05/23/2025. Last night he wore his home CPAP on room air with a pressure of 11 and half that he increase to 12 after he got up and went to the bathroom. He said he slept well. Plan: Patient is clinically stable and will perform bronchoscopy on 05/27/2025. The patient tells me that he had general anesthesia and was concerned that succinylcholine caused him to have severe muscle aches after 48 hours. Will make anesthesia aware. 05/27/25: The patient tells me he is breathing better than he has since January of 2025. He still has a cough. He had 1 episode of sputum with dark red blood this morning. He denies fever chills. Yesterday afternoon he had a panic attack. Currently is on room air with saturations 98%. White blood cell count 9.6, creatinine 0.65, sodium 126. Weight today is 165.4. Chest x-ray shows left lower lobe consolidation with no change from 05/26/2025. Plan for bronchoscopy later today. Plan: will plan for bronchoscopy later this afternoon. I have informed anesthesia coordinator about his concerns with succinylcholine who will pass this on to anesthesia. Oncology has been consulted. If patient tolerates bronchoscopy well today and has no complications tomorrow will consider discharge home on 05/28/2025. Bronchoscopy later in the day demonstrated a fungating pearly white endobronchial mass occluding the left lower lobe. Biopsies brushings and when needle aspirate of subcarinal lymph node obtained. 05/28/2025: Patient said he had difficulty sleeping because he could wear his CPAP. No rest shortness of breath. Patient states he has increased phlegm and cough and had hemoptysis consisting of blood streaks in his phlegm. He denies fever, chills, rigors. His room air saturations are 96%. He is afebrile. White blood cell count 10.1, creatinine 0.61, sodium 129. Weight is 166 lb. He feels he can go home today. Plan: Patient with fungating pearly white endobronchial mass consistent with cancer. [facility], Dr. Monsalve, has consulted on the patient and given him his business card for follow-up as an outpatient if the patient chooses. Patient also wishes to get a 2nd opinion through [facility],jarek dean in [place], [place]. This will be arranged after his pathology is reported. I told the patient I would call him at [phone] with the pathology results. Discussed with Dr. Jose, will follow with you. (2) COPD (chronic obstructive pulmonary disease): Qualifiers: COPD type: unspecified COPD Qualified Code(s): J44.9 - Chronic obstructive pulmonary disease, unspecified Code(s): J44.9 - Chronic obstructive pulmonary disease, unspecified Status: Chronic Assessment and Plan: GOLD grade 2 group E COPD Regarding his COPD the patient was diagnosed within the last few months. He smoked tobacco from age 22 to current at 1 pack per day for total of 43 pack years. Currently smoking 10 cigarettes a day. His exposed to secondhand smoke from his father but none since. PFTs on 05/09/2025 demonstrate a moderate obstructive abnormality with a mild restrictive abnormality resulting in a moderately severe decrease in his FEV1 at 57%. FEV1: FVC ratio 60%, moderately decreased DLCO that corrects when adjusted for alveolar volume. He denies vaping or illicit drug use. 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 He denies sand blasting, welding, professional painting, coal mining, construction work. He noticed dyspnea on exertion 3-4 years ago that has gotten progressively worse. One year ago he could walk 3/4 of a block. Recently he can walk 1/2 a block. He had no chronic cough or phlegm production until he developed pneumonia in January of 2025. currently patient has increased phlegm production, mild wheezes, increased shortness of breath. Plan: I will treat him for COPD exacerbation. he has very faint expiratory wheezes and I will change his Solu-Medrol to prednisone 40 mg p.o. q.day, continue DuoNebs q.4 hours, I will discontinue Daliresp as only been on this 3 days. I will continue guaifenesin 1200 mg p.o. q.12 hours. I will treat for possible bacterial infection with ceftriaxone, azithromycin and Flagyl, all day 2. I will send a COVID, influenza, RSV RT PCR assay, respiratory pathogen panel, urine for Legionella antigen, urine for pneumococcal antigen and mycoplasma serum IgM. 05/25/25: Patient has no wheezes today. Patient says the DuoNeb during the middle the night through his machine aggravated his breathing. COVID influenza and RSV RT PCR assay negative. Plan: Prednisone 40 mg p.o. q.day, day 3 steroids. DuoNebs q.4 hours while awake. Guaifenesin 1200 p.o. q.12 hours. Continue ceftriaxone azithromycin and Flagyl all day 3. Respiratory pathogen panel, serum mycoplasma IgM, urine Legionella antigen and urine pneumococcal antigen pending. 05/26/2025: No wheezes today. Patient is stable on DuoNebs while awake. Respiratory pathogen panel negative. Plan: Continue prednisone 40 mg p.o. q.day, today is day 4 of steroids, DuoNebs Q 4 while awake and guaifenesin 1200 b.i.d.. Continue ceftriaxone, azithromycin and Flagyl all day 4. Respiratory pathogen panel negative and mycoplasma IgM, urine Legionella and urine pneumococcal pending. 05/27/2025: Focal wheezing in the left lower lobe. Patient states the DuoNebs to help him. Plan: Continue prednisone 40 mg p.o. q.day, today is day 5 of steroids, DuoNebs Q 4 while awake and guaifenesin 1200 b.i.d.. Continue ceftriaxone, azithromycin and Flagyl all day 5. Continue for now. Respiratory pathogen panel negative and mycoplasma IgM, urine Legionella and urine pneumococcal pending. 05/28/2025: No wheezing today. room air saturations 96%. Patient states the DuoNebs help him. Patient has tried and failed Advair, trelegy, breztri as an outpatient with no improvement as he says these only last a few hours. He says he does get good help form the DuoNebs and would prefer to be on DuoNebs at home. Patient has finished 6 days of prednisone 40 and will discontinue. Today is day 6 of a ceftriaxone and Flagyl he has completed 5 days of azithromycin Plan: From a pulmonary perspective he should be discharged on these pulmonary medicines: Augmentin 875-125 at 1 pill b.i.d. x1 day DuoNeb q.i.d.. Rescue albuterol 2 puffs q.4 hours p.r.n. shortness of breath or wheezing Patient will need a nebulizer at home. guaifenesin 1200 mg p.o. b.i.d. p.r.n. congestion Tobacco cessation is absolutely necessary Patient will follow-up with Oncology if his biopsies demonstrate cancer and follow-up with his PCP. Discussed with Dr. Jose, will sign off, call with questions. (3) Hemoptysis: Code(s): R04.2 - Hemoptysis Status: Acute Assessment and Plan: Patient with a history of peripheral arterial disease status post stent to the left lower extremity in 2022 on Eliquis 5 p.o. b.i.d., left lung and hilar mass with collapse of the left lower lobe, 43 pack year tobacco use currently smoking 10 cigarettes a day, presents with 1 day of hemoptysis. etiology of patient's hemoptysis includes lung cancer, pneumonia, tracheobronchitis. 05/24/25: plan: Eliquis currently on hold. Last dose given 01/20/2025 at 10:04 p.m.. Given his hemoptysis will need to hold anticoagulation at this time. Patient will need bronchoscopy with plan for 05/27/2025. Will also treat for pneumonia and currently on ceftriaxone, azithromycin, Flagyl all day 2. Will also treat for COPD exacerbation as below. 05/25/2025: The patient tells me that his hemoptysis decreased throughout the day yesterday but he still had flecks and streaks in his sputum last night. He has had no phlegm this morning. Plan: Once the patient is hemoptysis free for 24 hours will reassess for ant icoagulation prior to his bronchoscopy. 05/26/25: He has clear phlegm and last night had 1 episode of hemoptysis with a spot the size of his pinky tip. This morning he had dark red blood in the sputu m the same amount. Plan: Patient is still with hemoptysis and I will not initiate anticoagulation at this day. Of note when the patient had a previous colonoscopy is displayer said he could be off of Eliquis for 5 days. 05/27/2025: Patient with 1 episode of sputum with dark red blood this morning. There was no active bright red blood. Plan: Continue to hold anticoagulation at this time. 05/28/2025: Patient with continued hemoptysis. He has been off Eliquis. Plan: I have told the patient to remain off of Eliquis for 48 hours post bronchoscopy until 05/29/2025 at his p.m. dose. (4) LÓPEZ (obstructive sleep apnea): Code(s): G47.33 - Obstructive sleep apnea (adult) (pediatric) Status: Chronic Assessment and Plan: Patient diagnosed with obstructive sleep apnea with a CPAP titration on 06/06/2017 and a pressure of 11 with nasal pillows to control his apnea events and hypoxemia. One year ago he increased his machine to 11.5 and he increased his to machine to 12 in January of 2025 with his respiratory issues. 05/24/2025: Patient felt he was too unstable to use his home pulse CPAP 12 laast night. Plan: Patient with active hemoptysis, wheezing at this time will hold off on his home CPAP unit. When she is more stable we can initiate CPAP. 05/25/2025: Patient told me he tolerated his home CPAP with pressure of 11 but then increased to 11.5 and did well on these settings. Plan: Continue home CPAP pressure is 11.5. 05/26/2025: Patient slept with his home CPAP with a pressure of 11 and half that was he increased to 12 after he went to the restroom. 05/27/2025: Patient uses home CPAP last night. Plan: if biopsies are performed during bronchoscopy will hold CPAP for 3 days. 05/28/2025: Plan: I have told the patient he can initiate CPAP 72 hours from his bronchoscopy on 05/30/2025. (5) Smoking: Code(s): F17.200 - Nicotine dependence, unspecified, uncomplicated Status: Acute Assessment and Plan: Patient with a 43 pack year tobacco use currently smoking 10 cigarettes a day. 05/24/2025: We briefly talked about tobacco cessation and he understands the importance of tobacco cessation. 05/28/2025: I have explained to the patient that the cigarettes are actively killing him and that he must continue his cessation once he goes home. He has been on nicotine patch and we talked about nicotine supplements at home. He tells me he will give this a sincere try and hopefully he can quit. Subjective Date/time seen: 05/28/25 09:08 Interval history: 05/24/2025: This is a new pulmonary consult for hemoptysis with lung mass. 65-year-old with a history of hypertension, atrial fibrillation, peripheral arterial disease status post left mechanical thrombectomy and balloon Keenan GGO plasty and stenting to the left popliteal artery, left posterior tibial artery and left tibioperoneal trunk on 10/22/2022 on Eliquis 5 PO BID thereafter, morbid obesity with LÓPEZ on CPAP 11, tobacco use and GOLD grade 2 group E COPD. Regarding his COPD the patient was diagnosed within the last few months. He smoked tobacco from age 22 to current at 1 pack per day for total of 43 pack years. Currently smoking 10 cigarettes a day. His exposed to secondhand smoke from his father but none since. PFTs on 05/09/2025 demonstrate a moderate obstructive abnormality with a mild restrictive abnormality resulting in a moderately severe decrease in his FEV1 at 57%. FEV1: FVC ratio 60%, moderately decreased DLCO that corrects when adjusted for alveolar volume. He denies vaping or illicit drug use. 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 He denies sand blasting, welding, professional painting, coal mining, construction work. He noticed dyspnea on exertion 3-4 years ago that has gotten progressively worse. One year ago he could walk 3/4 of a block. Recently he can walk 1/2 a block. He had no chronic cough or phlegm production until he developed pneumonia in January of 2025. Regarding his obstructive sleep apnea he had a CPAP titration on 06/06/2017 with a pressure of 11 controlling his oxygen and obstructive events. He does not have a [facility] and purchased his machine. One year ago he increased his pressure to 11.5. Since January of 2025 he increased his pressure to 12. He does not routinely check his downloads. Patient had a history of atrial fibrillation but did not require Eliquis until he had a left lower leg arterial thrombus on 10/21/2022 and was started on Eliquis at that time. In January of 2025 the patient developed fever, cough, chills, sinus congestion, shortness of breath, increased phlegm production and wheezing. He saw his PCP who diagnosed him with a pneumonia and treated him with antibiotics and steroids for 7 days. He got better over the next week back to 50-60% of his baseline. Off of these medicines for 1 week he got worse and worse prescribed antibiotics and steroids and he says he got 30-40% better. Since then he has had good days and bad days. On a good day he feels the same as he did prior to his pneumonia in . On a bad day he produces thick white to clear phlegm 10-15 times a day has worsening shortness of breath. 05/14/2025: CT scan Report of the chest to evaluate his aorta which was dictated on 05/21/2025. No comparison. Left hilar mass with complete collapse of the left lower lobe shift to the mediastinum to the left, mild centrilobular emphysema, multiple enlarged mediastinal and hilar lymph nodes. 05/21/2025 the patient was at his baseline with average amount of phlegm production, shortness of breath and dyspnea on exertion. On 05/22/2025 the patient took a sleeping pill and was anxious because he was told that his CT scan of the chest had a lung mass. He slept well but when he woke up on 05/23/2025 he had coughing paroxysms and the phlegm had blood. The blood ranged from flex, to streaks, to what sounds like veda blood clots and he coughed up blood to 30 times. 05/23/25: Patient presented to the emergency department with blood pressure 95/58, heart rate 78, respirations 24, room air saturations 96%. He had mild inspiratory wheezes. His white blood cell count was 8.8, his creatinine was 0.65, eosinophils 1.2%. BNP 807, troponin negative, INR 1.2, CT angiogram of the chest showed no PE, left lower lobe mass with extension to hilum with collapse of the left lower lobe, and large mediastinal and hilar lymphadenopathy. I was contacted by the emergency department we discussed the case and I instructed them to discontinue his Eliquis, initiate ceftriaxone, azithromycin and Flagyl. Initiate Solu-Medrol 40 q.6 and DuoNebs q.4 hours and guaifenesin 1200 p.o. b.i.d.. Plan was to leave patient NPO to be evaluated on 05/24/2025. 05/24/2025: Overall the patient states that his breathing is improved. He denies fever, chills, rigors or diaphoresis. He thinks that his hemoptysis is better. I asked him to expectorate and he had phlegm with flex and 1 streak of blood. He is afebrile. Patient was on room air with saturations 96%. White blood cell count 6.2, creatinine 0.65. 05/25/2025. Overall the patient tells me he is improved. His cough has decreased in frequency. There is less blood in his phlegm. His last hemoptysis was last night. He has no rest shortness of breath. His dyspnea on exertion is the same. He denies fever, chills, rigors and has made no phlegm this morning. He is on room air with saturations 96%. His white blood cell count is 11.7, his creatinine is 0.58. Yesterday he was positive 920 mL, cumulative he is positive 1.6 L since admission. His weight is 162.3 today. 05/26/25: overall the patient tells me he has improved. He is breathing normally at rest. His dyspnea on exertion is better. He overall he states he has 50-60% back to his normal. He has clear phlegm and last night had 1 episode of hemoptysis with a spot the size of his pinky tip. This morning he had dark red blood in the sputum the same amount. Patient is on room air with saturations 98%. White blood cell count 9.6, hemoglobin 15.6, creatinine 0.68. His weight today is 164. His chest x-ray shows retrocardiac consolidation with no change from 05/23/2025. Last night he wore his home CPAP on room air with a pressure of 11 and half that he increase to 12 after he got up and went to the bathroom. He said he slept well. 05/27/25: The patient tells me he is breathing better than he has since January of 2025. He still has a cough. He had 1 episode of sputum with dark red blood this morning. He denies fever chills. Yesterday afternoon he had a panic attack. Currently is on room air with saturations 98%. White blood cell count 9.6, creatinine 0.65, sodium 126. Weight today is 165.4. Chest x-ray shows left lower lobe consolidation with no change from 05/26/2025. Plan for bronchoscopy later today. Bronchoscopy later in the day demonstrated a fungating pearly white endob ronchial mass occluding the left lower lobe. Biopsies brushings and when needle aspirate of subcarinal lymph node obtained. 05/28/2025: Patient said he had difficulty sleeping because he could wear his CPAP. No rest shortness of breath. Patient states he has increased phlegm and cough and had hemoptysis consisting of blood streaks in his phlegm. He denies fever, chills, rigors. His room air saturations are 96%. He is afebrile. White blood cell count 10.1, creatinine 0.61, sodium 129. Weight is 166 lb. He feels he can go home today. DATA: 05/23/25: EXAMINATION: CTA chest PE protocol, 05/23/2025 16:50 CDT HISTORY: hemoptysis COMPARISON: No comparisons available. FINDINGS: No significant coronary calcification is present ([id number]) LUNGS: The contrast bolus is adequate, there is no pulmonary embolism identified. No tracheomalacia. No bronchiectasis. There is a large focus of abnormal density in the left lower lobe with no significant air bronchograms appreciated and occlusion of the bronchus in this location. Minimal emphysematous changes. No bullous formation. Minimal pulmonary fibrotic changes. No significant honeycombing is identified. There is volume loss in the left lung with mediastinal shift to the left. Scattered bilateral punctate calcified granulomas. HEART AND PERICARDIUM: Mild cardiomegaly. Trace pericardial effusion. AORTA: Normal caliber aorta.. PULMONARY ARTERIES: No pulmonary embolism ADENOPATHY/MEDIASTINUM: There are multiple enlarged lymph nodes within the mediastinum and the kathia the largest in the subcarinal space measuring 4 x 3.5 cm. LIMITED VIEWS OF THE ABDOMEN: Partially imaged large bilateral renal cysts the largest on the right side 8 x 6 cm incompletely evaluated, renal ultrasound is suggested. Minimal cholelithiasis. OSSEOUS STRUCTURES: No sclerotic or lytic lesions. No acute rib fractures. OVERLYING SOFT TISSUES: Unremarkable. THYROID: There are large cystic appearing bilateral thyroid nodules incompletely evaluated the largest on the right side 5 x 6 cm, ultrasound is recommended. IMPRESSION: 1. Negative for pulmonary embolism. Large area of abnormal density within the left lower which may reflect a large infiltrate with associated lymphadenopathy however there are no significant air bronchograms and the possibility of an obstructing endobronchial lesion should be considered. Metastases are not excluded. Bronchoscopy is suggested 05/14/2025: Dictated report on 05/21/2025 ( No images): CTA chest with and without contrast. Clinical data concern for enlarged aorta. Findings: There are multiple enlarged mediastinal and bilateral hilar lymph nodes. The lung windows demonstrate complete collapse of the left lower lobe. There is right to left mediastinal shift. There appears to be a left hilar mass that may extend into the distal left mainstem bronchus. There is mild centrilobular emphysema there are no suspicious pulmonary nodules throughout the aerated portions of the lung. Impression: There appears to be left hilar mass that extends into the distal left mainstem bronchus. This is concerning for primary bronchogenic carcinoma. There is associated complete collapse of the left lower lobe. Recommend further evaluation with bronchoscopy. 2. There are multiple enlarged mediastinal bilateral hilar lymph nodes, likely representing metastatic lymphadenopathy. PET-CT scan may provide additional information. 3. Diffuse enlargement of the thyroid gland. Recommend further evaluation with dedicated thyroid sonogram. 4. Mild cardiomegaly. There is diffuse coronary Atherosclerotic disease. 05/09/2025: This is a pulmonary function test with spirometry, plethysm ography and diffusing capacity. The test was performed and results interpreted in accordance with the 2019 and 2005 ATS/ERS Task Force guidelines respectively using the Global Lung Function Initiative-2012 reference equations. Patient demonstrated good effort and cooperation. Reproducibility criteria were met. The quality of the spirometry maneuver was Grade A. Findings: Spirometry: There is decreased maximal expiratory airflow at all lung volumes with a concave expiratory flow tracing. The contour the inspiratory flow tracing is normal. The FVC is 3.83 L, 72% predicted. The FEV1 is 2.31 L, 57% predicted. The FEV1: FVC ratio is 60%. Plethysmography: The total lung capacity is 5.77 L, 72% predicted. The functional residual capacity is 3.26 L, 76% predicted. The residual volume is 1.70 L, 65% predicted. Diffusing capacity: The diffusing capacity unadjusted for hemoglobin and carboxyhemoglobin is 17.3, 59% predicted. The diffusing capacity adjusted for alveolar volume is 3.80, 99% predicted. Impression: There is a combined obstructive and restrictive ventilatory abnormality. There are no guidelines to assign the severity of obstruction and restriction with a combined abnormality. In my opinion, given the moderately concave expiratory flow tracing, mildly decreased FEV1: FVC ratio and mild restrictive abnormality I would state there is a moderate obstructive abnormality and a mild restrictive abnormality resulting in a moderately severe decrease in the FEV1. The diffusing capacity unadjusted for hemoglobin and carboxyhemoglobin is moderately decreased and normalizes when adjusted for alveolar volume. There are no prior studies for comparison 04/25/2025: Echocardiogram report from [facility]: Conclusions: 1. Mild concentric hypertrophy with normal LV size and low normal function with EF 50-55%. RV appears to have good function from subcostal view. Both atria are dilated. Mild degenerative alveolar changes. Mitral valve: Posterior calcification, valve opens well. I disagree with mean gradient measurement. Aortic valve is trileaflet with sclerosis and mildly elevated peak velocity. There is mild to moderate AI. Aortic root is 4.2 cm. Ascending aorta 4.0 cm. Tricuspid valve: The estimated RVSP is 23. 03/05/2025: Clinical Indication: Pneumonia PA and lateral views of the chest: Comparison: 05/25/2017 Findings: There is central congestive change and possible minimal bibasilar pulmonary edema. Cardiomediastinal silhouette is within normal limits. Bones and soft tissues are unremarkable. Impression: Central congestive change and possible minimal bibasilar pulmonary edema. 06/02/2017: CPAP titration: DATE OF STUDY: June 02, 2017. The patient is a 57-year-old man, 76 inches in height, weighing 340 pounds with a body mass index of 41.4. His last polysomnogram that I have here was dated August 05, 2003, and it was a split night polysomnogram then. The patient was titrated with CPAP from 5 to 10 cm of water and appeared to have optimum level achieved at 9 cm of water. The patient is now back for CPAP retitration. DIAGNOSTIC IMPRESSION: Adequate titration of CPAP to a final pressure of 11 cm of water was noted with correction of respiratory events. Oxygen saturations also stabilized. Sleep efficiency was very good at that level of CPAP. The patient spent the entire time in the supine position at that level of CPAP. We will recommend CPAP at 11 cm of water with a heated humidifier for added comfort. The patient was titrated with his own medium Breeze nasal pillow mask Review of Systems Constitutional: Constitutional: Reports no additional constitutional complaints Eyes: Eyes: Reports no additional eye complaints ENT: Reports system reviewed and no additional complaints, except as documented Cardiovascular: Cardiovascular: Reports no additional cardiovascular complaints Respiratory: Respiratory: Reports no additional respiratory complaints Gastrointestinal: Gastrointestinal: Reports no additional gastrointestinal complaints Musculoskeletal: Musculoskeletal: Reports no additional musculoskeletal complaints Neurologic: Reports system reviewed and no additional complaints, except as documented Psychiatric: Psychiatric: Reports no additional psychiatric complaints Endocrine: Endocrine: Reports no additional endocrine complaints Hematologic/Lymphatic: Hematologic/Lymphatic: Reports no additional hematologic/lymphatic complaints Allergic/Immunologic: Allergic/Immunologic: Reports no additional allergic/immunologic complaints Exam Const: General: cooperative and comfortable Orientation/consciousness: oriented to person, oriented to place and oriented to time Other: obese in distress on room air HENMT: Head: normal to inspection Ears: hearing grossly normal bilaterally Eyes: General: appearance normal, both eyes and all related structures Neck: Neck: normal visual inspection Chest: Chest palpation & inspection: normal inspection of the chest Resp: Effort & Inspection: normal respiratory effort and able to speak in complete sentences Auscultation: no crackles, no rales, no rhonchi, no wheezes and diminished lung sounds Other: No wheezes. diminished sounds left lung base Cardio: Jugular venous distension: no JVD GI: Inspection: normal to inspection Skin: General skin exam: normal color Neuro: General: oriented to person, oriented to place and oriented to time Extrem: General: normal to inspection and no edema Psych: Appearance: grossly normal Objective Data Vital Signs Vital Signs: Vital Signs - 24 hr 05/27/25 09:57 05/27/25 12:00 05/27/25 13:02 Temperature Pulse Rate 80 59 L 63 Respiratory Rate 16 Blood Pressure Pulse Oximetry Oxygen Delivery Oxygen Flow Rate 05/27/25 13:06 05/27/25 13:07 05/27/25 13:53 Temperature 36.2 C L 36.3 C L Pulse Rate 64 68 74 Respiratory Rate 18 16 20 Blood Pressure 124/71 130/66 Pulse Oximetry 100 97 Oxygen Delivery Room Air Oxygen Flow Rate 05/27/25 15:09 05/27/25 15:19 05/27/25 15:29 Temperature 35.4 C L Pulse Rate 68 71 72 Respiratory Rate 26 H 32 H 25 H Blood Pressure 83/43 L 96/68 L 93/48 L Pulse Oximetry 95 97 94 Oxygen Delivery Simple Face Mask Simple Face Mask Nasal Cannula Oxygen Flow Rate 6 6 6 05/27/25 15:39 05/27/25 15:49 05/27/25 15:59 Temperature 36.5 C Pulse Rate 69 74 60 Respiratory Rate 20 16 26 H Blood Pressure 95/48 L 97/49 L 90/52 L Pulse Oximetry 96 96 96 Oxygen Delivery Nasal Cannula Nasal Cannula Room Air Oxygen Flow Rate 6 4 05/27/25 16:30 05/27/25 16:50 05/27/25 16:56 Temperature 36.4 C L Pulse Rate 72 62 63 Respiratory Rate 20 16 16 Blood Pressure 117/53 L Pulse Oximetry 98 Oxygen Delivery Oxygen Flow Rate 05/27/25 19:46 05/27/25 19:46 05/27/25 19:46 Temperature Pulse Rate 84 84 84 Respiratory Rate 16 18 Blood Pressure Pulse Oximetry 94 94 Oxygen Delivery Room Air Oxygen Flow Rate 05/27/25 20:00 05/27/25 20:00 05/27/25 20:12 Temperature 36.6 C Pulse Rate 92 79 Respiratory Rate 16 Blood Pressure 113/65 Pulse Oximetry 97 Oxygen Delivery Room Air Oxygen Flow Rate 05/28/25 00:00 05/28/25 03:39 05/28/25 04:00 Temperature 36.6 C Pulse Rate 73 72 58 L Respiratory Rate 18 Blood Pressure 136/68 Pulse Oximetry 96 Oxygen Delivery Oxygen Flow Rate 05/28/25 07:06 05/28/25 07:07 05/28/25 08:57 Temperature Pulse Rate 64 64 89 Respiratory Rate 16 16 Blood Pressure 142/52 H Pulse Oximetry 94 95 Oxygen Delivery Nasal Cannula Oxygen Flow Rate 2 05/28/25 09:01 Temperature Pulse Rate 89 Respiratory Rate Blood Pressure Pulse Oximetry Oxygen Delivery Oxygen Flow Rate Intake/Output Intake/Output: Intake & Output 05/25/25 05/26/25 05/27/25 05/28/25 23:59 23:59 23:59 23:59 Intake Total 2060 2230 830 900 Output Total 175 2 Balance 1885 2230 830 898 Meds/Results Medications: Active Medications Generic Name Dose Route Start Last Admin Trade Name Freq PRN Reason Stop Dose Admin Acetaminophen 500 mg 05/24/25 08:49 05/28/25 02:57 Acetaminophen 500 Mg Tablet PO 500 mg Q4H PRN Administration Mild Pain (1-3) or Fever Albuterol 1 puff 05/27/25 16:06 Albuterol Sulfate (*Sp) Aerosol 1 Puff INHALATION Q4HRT PRN Shortness Of Breath Or Wheezing Albuterol/Ipratropium 3 ml 05/24/25 08:55 05/27/25 13:02 Ipratropium 0.5 Mg/Albuterol Sulfate 2.5 Mg Ampul.Neb 3 Ml INHALATION 3 ml Q6HR PRN Administration Shortness Of Breath Albuterol/Ipratropium 3 ml 05/25/25 16:00 05/28/25 07:04 Ipratropium 0.5 Mg/Albuterol Sulfate 2.5 Mg Ampul.Neb 3 Ml INHALATION 3 ml Q5URTIB SONYA Administration Amlodipine Besylate 10 mg 05/24/25 09:00 05/28/25 09:00 Amlodipine Besylate 10 Mg Tablet PO 10 mg DAILY SONYA Administration Aspirin 81 mg 05/28/25 09:00 05/28/25 09:00 Aspirin 81 Mg Enteric Tablet PO 81 mg DAILY SONYA Administration Atorvastatin Calcium 40 mg 05/23/25 21:45 05/27/25 21:25 Atorvastatin 40 Mg Tablet PO 40 mg HS SONYA Administration Azelastine HCl 2 spray 05/27/25 10:30 05/28/25 09:04 Azelastine Hcl Nasal 0.1% 137 Mcg/Spr 30 Ml Btl NASAL 2 spray Q12HR SONYA Administration Escitalopram Oxalate 5 mg 05/24/25 09:00 05/28/25 09:00 Escitalopram Oxalate 5 Mg Tablet PO 5 mg DAILY SONYA Administration Guaifenesin 1,200 mg 05/23/25 21:00 05/28/25 09:01 Guaifenesin 12 Hr 600 Mg Tabcr PO 1,200 mg Q12HR SONYA Administration Halobetasol Propionate 1 applic 05/28/25 09:00 05/28/25 09:04 Halobetasol Propionate 0.05% Cream 15 Gm TOPICAL Not Given QAM SONYA Hydralazine HCl 50 mg 05/23/25 22:00 05/28/25 05:56 Hydralazine Hcl 50 Mg Tablet PO 50 mg Q8HR SONYA Administration Ceftriaxone Sodium 1 gm/ 50 mls @ 100 mls/hr 05/24/25 21:00 05/27/25 21:27 Sodium Chloride IVPB 100 mls/hr Q24H SONYA Administration Isosorbide Mononitrate 30 mg 05/24/25 09:00 05/28/25 09:01 Isosorbide Mononitrate 30 Mg Tab.Er.24h PO 30 mg DAILY SONYA Administration Lisinopril 20 mg 05/24/25 09:00 05/28/25 09:01 Lisinopril 20 Mg Tablet PO 20 mg QAM SONYA Administration Lorazepam 0.5 mg 05/23/25 21:35 05/27/25 21:27 Lorazepam (*Crx) 0.5 Mg Tablet PO 0.5 mg BID PRN Administration Anxiety Metoprolol Succinate 200 mg 05/24/25 09:00 05/28/25 09:01 Metoprolol Succinate Ext Rel 100 Mg Tabcr PO 200 mg DAILY SONYA Administration Metronidazole 500 mg 05/27/25 22:00 05/28/25 05:56 Metronidazole 500 Mg Tablet PO 500 mg Q8HR SONYA Administration Miscellaneous Information 1 each 05/27/25 00:01 Halobetasol Propionate 0.05% Cream 15 Gm XX 06/26/25 00:00 CLARIFY SONYA Multivitamins Therapeutic 1 tablet 05/24/25 09:00 05/28/25 09:02 Multivitamins Therapeutic Tab (*Bkc) PO 1 tablet QAM [facility] Administration Nicotine 1 patch 05/23/25 20:55 05/28/25 09:02 Nicotine (*Pbkc) 21 Mg Patch TRANSDERM 1 patch DAILY [facility] Administration Nonformulary Drug ( 1 each 05/27/25 16:10 Glucosamine XX 05/28/25 16:09 Chondroitin 2 Tab- PRN PRN Cap) PROTOCOL Oxymetazoline HCl 1 spray 05/23/25 22:53 05/23/25 23:42 Oxymetazoline Hcl 0.05% Jewel 15 Ml Btl (*Bkc) NASAL 1 spray Q12HR PRN Administration Congestion Pantoprazole Sodium 40 mg 05/24/25 09:00 05/28/25 09:02 Pantoprazole 40 Mg Tablet PO 40 mg QAM SONYA Administration Prednisone 40 mg 05/24/25 11:55 05/28/25 09:00 Prednisone 20 Mg Tablet PO 40 mg DAILY@0800 SONYA Administration Sodium Chloride 1 spray 05/23/25 21:38 05/23/25 22:24 Saline 0.65% Jewel Soln 44 Ml Btl NASAL 1 spray Q6HR PRN Administration Congestion Tamsulosin HCl 0.4 mg 05/23/25 21:50 05/28/25 09:02 Tamsulosin Hcl 0.4 Mg Capsule PO 0.4 mg Q12HR SONYA Administration Radiology Results: ITS Impressions Chest CTA 05/23/25 17:05 IMPRESSION: 1. Negative for pulmonary embolism. Large area of abnormal density within the left lower which may reflect a large infiltrate with associated lymphadenopathy however there are no significant air bronchograms and the possibility of an obstructing endobronchial lesion should be considered. Metastases are not excluded. Bronchoscopy is suggested Thyroid Ultrasound 05/24/25 12:29 IMPRESSION: 1. There is a 3.1 cm nodule in the left mid thyroid lobe. A fine needle aspiration is recommended. 2. There is a 5.6 cm mildly complicated cyst in the right thyroid lobe. 3. There is a 3 cm cyst in the left thyroid lobe. Chest X-Ray 05/27/25 15:55 Impression: CHF. No pneumothorax Labs Labs: Laboratory Results - last 24 hr 05/25/25 05/28/25 05/28/25 04:42 04:40 08:10 WBC 10.1 H RBC 4.90 Hgb 15.1 Hct 44.6 MCV 91.0 MCH 30.8 MCHC 33.9 RDW 13.5 Plt Count 217 MPV 9.5 Immature Gran % (Auto) 1.7 H Neut % (Auto) 53.1 Lymph % (Auto) 32.7 [place] % (Auto) 10.9 H Eos % (Auto) 1.0 Baso % (Auto) 0.6 Lymph # (Auto) 3.32 H [place] # (Auto) 1.1 H Eos # (Auto) 0.1 Baso # (Auto) 0.1 Abs Immat Gran (auto) 0.17 H Absolute Neuts (auto) 5.4 Absolute Nucleated RBC 0.000 Nucleated RBC % 0.0 Sodium 129 L Potassium 3.7 Chloride 99 Carbon Dioxide 23 Anion Gap 7 BUN 12 Creatinine 0.61 L Estim Creat Clear Calc 175 Estimated GFR > 60 Glucose 99 POC Capillary Glucose 115 H Calcium 8.3 L Total Bilirubin 1.1 AST 51 ALT 66 H Alkaline Phosphatase 75 Total Protein 5.8 L Albumin 3.4 L M.pneumoniae IgM Titer <770
--- NOTE | 2025-05-28 11:33 | P.DS_ITS ---
DS: Admitting Diagnosis Discharge Date 05/28/2025 Admitting Diagnosis Lung mass, hemoptysis DS: Discharge Diagnosis Discharge Diagnosis (1) Lung mass: Code(s): R91.8 - Other nonspecific abnormal finding of lung field Status: Acute Assessment and Plan: * Chest CTA: Negative for pulmonary embolism. Large area of abnormal density within the left lower which may reflect a large infiltrate with associated lymphadenopathy however there are no significant air bronchograms and the possibility of an obstructing endobronchial lesion should be considered. Metastases are not excluded. Bronchoscopy is suggested * Mass present in [place] * NPO at CT. * Trend labs and VS. * Orders per Dr. Krishna include: Continue Eliquis, Solumedrol 40 mg Q6 hrs, Duoneb Q4 hrs prn, Rocephin 1G daily, Azithromycin 500 mg IVPB Q24 hrs, Flagyl 500 mg IVPB Q8 hrs, and Guaifenesin BID. * Heme/onc consult - appreciate further recommendations * Consult Pulmonology * Potential Bronchoscopy w/Bx this afternoon (2) Hemoptysis: Code(s): R04.2 - Hemoptysis Status: Acute Assessment and Plan: * See above * History of chronic Eliquis use given peripheral artery disease status post stent to left lower extremity in 2022 * 43 pack year tobacco use, current cigarette smoker * Hold anticoagulation (3) COPD (chronic obstructive pulmonary disease): Qualifiers: COPD type: unspecified COPD Qualified Code(s): J44.9 - Chronic obstructive pulmonary disease, unspecified Code(s): J44.9 - Chronic obstructive pulmonary disease, unspecified Status: Chronic Assessment and Plan: * See #1 * Supplemental oxygen as needed. (4) Hyponatremia: Code(s): E87.1 - Hypo-osmolality and hyponatremia Status: Acute Assessment and Plan: * Uncertain etiology. Possible causes SIADH, Electrolyte shift from Lung mass, Dehydration * Collect urine and serum osmolalities, urine sodium * Normal renal function. * Normal saline at 100 ml/hr ordered. * Trend labs * 05/28: Na 125 -> 130 -> 126 ->129. Asymptomatic, continue to IVF rehydration (5) Thyroid nodule: Code(s): E04.1 - Nontoxic single thyroid nodule Status: Acute Assessment and Plan: * Chest CTA: There are large cystic appearing bilateral thyroid nodules incompletely evaluated the largest on the right side 5 x 6 cm, ultrasound is recommended. * Thyroid US: * There is a 3.1 cm nodule in the left mid thyroid lobe. A fine needle aspiration is recommended. * There is a 5.6 cm mildly complicated cyst in the right thyroid lobe. * There is a 3 cm cyst in the left thyroid lobe. * TSH wnl * Heme/onc consult given possible need for FNA - would need to wait until after bronchoscopy for this (6) Chronic atrial fibrillation: Code(s): I48.20 - Chronic atrial fibrillation, unspecified Status: Chronic Assessment and Plan: * Continue Eliquis therapy * Telemetry (7) Mixed hyperlipidemia: Code(s): E78.2 - Mixed hyperlipidemia Status: Chronic Assessment and Plan: * Heart Healthy diet w/NPO at CT. * Continue statin once confirmed. (8) Essential hypertension: Code(s): I10 - Essential (primary) hypertension Status: Chronic Assessment and Plan: * BP currently stable w/SBP running low 100s-110/Diastolics of 60s * Monitor and trend. * Reorder home meds once they are confirmed and reviewed. * 133/67 (9) LÓPEZ (obstructive sleep apnea): Code(s): G47.33 - Obstructive sleep apnea (adult) (pediatric) Status: Chronic Assessment and Plan: * Home CPAP therapy. (10) Nicotine abuse: Code(s): Z72.0 - Tobacco use Status: Chronic Assessment and Plan: * 40+ Pack year smoker * Nicotine patch daily. * Counseled for the importance of smoking cessation in the current setting. DS: Summary Hospital Course Reason for hospitalization: SOB and Hemoptysis Hospital Course: For HPI: This is a 65 year old male pt with hx of care home smoking, A-fib on Eliquis, BPH, Obesity, HTN, HLD, Left popliteal artery occlusion, LÓPEZ and aortic valve insufficiency comes to the ER with complaints of having persistent SOB and today hemoptysis. Pt has a recent health hx of PNA in January of this year and it was persistent and would not resolve prompting PFT's performed last month and dx of COPD. The COPD has been treated with inhalers and despite the treatment the pt's symptoms persisted so his Camera Repair Technician ordered a CT Scan yesterday that showed a concern for left upper lobe lung cancer. Patient's primary care provider was in the process of getting PET scan in follow-up scheduled as well as biopsy, but today he had Hemoptysis, worsening dyspnea and felt as though he could not catch his breath. It was made worse by laying down and with any exertion. He does not follow with a [employer] regularly. He is a 40+ year pack smoker. In the ER the pt was evaluated and EKG showed A-fib 94 bpm, stable VS, and normal hemoglobin and hematocrit 16.0/47.3. No leukocytosis with white count 8.8. Platelets 245. Metabolic panel significant for the sodium of 127. This is a decrease compared to previous labs that were normal. He has normal troponin, actually elevated bilirubin at 1.5 and BNP of 807. Chest x-ray was performed that showed mild interstitial edema and CTA PE protocol shows no pulmonary embolism however there is enlarged abnormal density in the left lower lobe and bronchoscopy is suggested. ER pr spoke with pulmonology, Dr. Medina who agrees to follow and cover. Potential for bronchoscopy tomorrow after he evaluates the patient. He advised patient to continue Eliquis tonight, start Solu-Medrol 40 mg every 6 hours, DuoNeb q.4 hours p.r.n., give Rocephin and Flagyl and guaifenesin b.i.d.. Patient is being admitted in the current setting and will be evaluated by pulmonology tomorrow with potential for bronchoscopy with biopsy. Pulmonology consulted for lung mass concerning for lung cancer. Agree that best diagnostic procedure at this time would be a bronchoscopy which was scheduled for 05/28. This was performed without any complications and on report had a fungating pearly white endobronchial mass consistent with cancer. Dr. Monsalve of Oncology was also consulted and given his business card for follow-up as an outpatient. It will be several days until until results of the bronchoscopy will come back and Dr. Krishna of pulmonology will call the patient regarding these results. Chest CTA was ordered on 05/23 which showed large cystic appearing bilateral thyroid nodules incompletely evaluated the largest on the right side measuring 5 x 6 cm, recommending ultrasound. Thyroid ultrasound was obtained which showed 3.1 cm nodule in the left mid thyroid, recommend fine- needle aspiration. Also 5.6 cm mildly complicated cyst in the right thyroid lobe and 3 cm cyst in the left thyroid lobe. Patient will be recommended to follow up with primary care physician regarding possible fine-needle aspiration. Dr. Krishna of pulmonology recommends continued antibiotic coverage with Augmentin for the next day. Also recommends continuing rescue albuterol, and ordering DuoNebs with nebulizer. Also stressed the importance of tobacco cessation. Upon admission, sodium was low at 127 and decreased down to 124. He was placed on a fluid restriction and sodium subsequently increased to 130. Likely some component of over hydration as patient continually drinks water as his mouth is ?dry all the time. Patient is asymptomatic and would encourage him to limit excessive oral intake. Patient is otherwise hemodynamically stable for discharge at this time. He will be instructed to hold off on Eliquis for 48 hours post bronchoscopy until 05/29. Plan for discharge home. Status at Discharge Functional status at discharge: independent ambulation Overall status at discharge: patient is progressing back to baseline Time Spent with Patient Time attestation: Total time spent providing and/or coordinating discharge services: 36 Exam Const: General: uncomfortable Other: Obese male pt sitting on stretcher at this time. He appears overall comfortable. HENMT: Mouth: Yes moist mucous membranes Eyes: General: appearance normal, both eyes and all related structures Neck: Neck: supple and no JVD Carotids: no bruits Lymphatic: lymphadenopathy not noted Chest: Other: Not tender to palpation Resp: Effort & Inspection: normal respiratory effort (Increased effort) Auscultation: clear to auscultation bilaterally, no crackles, no rales, no rhonchi, no wheezes and lung sounds not diminished Cardio: Rate: regular rate Rhythm: abnormal rhythm regularly irregular (Hx. A-fib) Heart sounds: no gallops, Murmur heart sound present and no rubs GI: Inspection: non-distended Auscultation: normal bowel sounds Skin: General skin exam: normal color, no rashes or lesions noted and no erythema Wounds: no wounds Neuro: Speech: normal speech Motor exam (neuro): 5/5 motor strength present throughout and Normal motor muscle tone present throughout Sensory Exam: normal sensation Extrem: General: normal to inspection, edema (trace BLE) and no pedal edema Psych: Mental Status: mental status grossly normal Affect: Anxious affect present DS: Data Data Completed and Pending Pending studies at discharge: Pending at discharge 05/27/25 15:26 Surgical [PTH] Routine Surgical [PTH] Routine Labs on day of discharge: Labs from last 24 hours 05/28/25 05/28/25 05/25/25 08:10 04:40 04:42 WBC 10.1 H RBC 4.90 Hgb 15.1 Hct 44.6 MCV 91.0 MCH 30.8 MCHC 33.9 RDW 13.5 Plt Count 217 MPV 9.5 Immature Gran % (Auto) 1.7 H Neut % (Auto) 53.1 Lymph % (Auto) 32.7 [place] % (Auto) 10.9 H Eos % (Auto) 1.0 Baso % (Auto) 0.6 Lymph # (Auto) 3.32 H [place] # (Auto) 1.1 H Eos # (Auto) 0.1 Baso # (Auto) 0.1 Abs Immat Gran (auto) 0.17 H Absolute Neuts (auto) 5.4 Absolute Nucleated RBC 0.000 Nucleated RBC % 0.0 Sodium 129 L Potassium 3.7 Chloride 99 Carbon Dioxide 23 Anion Gap 7 BUN 12 Creatinine 0.61 L Estim Creat Clear Calc 175 Estimated GFR > 60 Glucose 99 POC Capillary Glucose 115 H Calcium 8.3 L Total Bilirubin 1.1 AST 51 ALT 66 H Alkaline Phosphatase 75 Total Protein 5.8 L Albumin 3.4 L M.pneumoniae IgM Titer <770 Preliminary micro results at discharge 05/23/25 18:55 Blood Culture - Preliminary Blood 05/23/25 19:09 Blood Culture - Preliminary Blood Discharge Plan Discharge Attending physician on discharge: Silvia Vergara Consulting providers: Dinesh Jose; Vikas Monsalve Discharging Clinician: Dinesh Jose Anticipated Discharge Date/Time: 05/28/25 10:57 Patient Disposition: Home Activity: no straining and as tolerated Diet: regular Discharge Instructions: Discharge disposition: Home Take medications as prescribed. You will be prescribed Augmentin to be taken twice daily through tomorrow. You will also be prescribed a DuoNeb with rescue albuterol inhaler as well as a nebulizer. Recommend continuing guaifenesin 1200 mg to be taken orally twice daily as needed. Monitor blood pressures Take caution while standing, rising, or moving Change positions slowly taking a break between each position change If you standing feel dizzy sit back down and take a break Encouraged to continue with yearly vaccinations Return to the emergency department if he developed sudden shortness of breath, chest pain, nausea, vomiting, upset stomach or intractable diarrhea Return to the emergency department if you develop fever greater than 101.5 Follow-up with the primary care physician within 1-2 weeks Thank you for choosing [facility] for your healthcare needs Patient Instructions: Antibiotic Form, Apixaban (By mouth), How to Stop Smoking (DC), Safe Use of Anticoagulants (GEN), Blood Thinners (GEN) Patient Language: Moh[place] Stand Alone Forms: General Discharge Information Follow-up/Referrals: Kb Elkins MD [Primary Care Provider, Family Practice] Peter Krishna MD [Physician, Pulmonology] Discharge Medications: New ipratropium-albuterol 0.5 mg-3 mg(2.5 mg base)/3 mL solution for nebulization 3 ml inhalation QID PRN (Reason: shortness of breath) Qty: 180 0RF (DME) nebulizer and compressor Device See Rx Instructions .Route Qty: 1 0RF Rx Instructions: As directed amoxicillin-pot clavulanate 875-125 mg tablet 1 tablet PO Q12H Qty: 4 0RF Continued aspirin [Adult Low Dose Aspirin] 81 mg tablet,delayed release (DR/EC) 81 mg PO DAILY roflumilast 250 mcg tablet 250 mcg PO DAILY 28 Days Qty: 28 0RF escitalopram oxalate 5 mg tablet 5 mg PO DAILY Qty: 30 2RF lorazepam 0.5 mg tablet 0.5 mg PO BID PRN (Reason: anxiety) Qty: 20 0RF Adults Multivitamin 1 tab-cap PO DAILY Glucosamine Chondroitin 2 tab-cap PO DAILY Eliquis 5 mg tablet 5 mg PO BID Qty: 180 3RF atorvastatin 40 mg tablet 40 mg PO HS Qty: 90 3RF hydralazine 50 mg tablet 50 mg PO TID Qty: 270 3RF omeprazole 20 mg capsule,delayed release(DR/EC) 20 mg PO DAILY Qty: 90 3RF metoprolol succinate 200 mg tablet extended release 24 hr 200 mg PO DAILY Qty: 90 3RF tamsulosin 0.4 mg capsule 0.4 mg PO BID Qty: 180 3RF isosorbide mononitrate 30 mg tablet extended release 24 hr 30 mg PO DAILY Qty: 90 3RF amlodipine-benazepril [Lotrel] 10-20 mg capsule 1 cap PO DAILY Qty: 90 3RF halobetasol propionate 0.05 % cream 1 applic topical DAILY Qty: 15 1RF fluticasone propion-salmeterol [Advair Diskus] 500-50 mcg/dose blister with device 1 inh inhalation Q12H Qty: 60 0RF albuterol sulfate [Ventolin HFA] 90 mcg/actuation HFA aerosol inhaler 1 inh inhalation Q4H PRN (Reason: shortness of breath or wheezing) Qty: 6.7 0RF Date of admission: 05/23/25 17:59 Primary Care Provider: Kb Elkins Admitting Provider: Magdiel Harmon Attending physician on admission: Magdiel Harmon Condition: Stable Quality VTE Prophylaxis VTE prophylaxis: pharmacologic ordered
[2025-05-30 23:07] LABS: Osmolality, Urine 263 mOsmol/kg (.)
[2025-05-31 02:07] LABS: Osmolality, Serum 259 mOsmol/kg (280-301)
== END 2025-05-28 12:45 | disposition home or self-care (01) | DRG 181 ==
LOC: ANHED 16:10 → ANH2MED 18:59
PROVIDERS: Emergency Medicine; Internal Medicine Pulmonary Disease; Nurse Practitioner Adult Health; Admitting Provider Internal Medicine; Emergency Provider Nurse Practitioner Family; PCP Family Medicine; Visit Provider Physician Assistant
PROC: BB1DZZZ Fluoroscopy of Upper Airways (ICD-10-PCS; CPT 31624; principal; 2025-05-27 15:30)
DX: C34.32 Malignant neoplasm of lower lobe, left bronchus or lung (principal); E87.1 Hypo-osmolality and hyponatremia; R04.2 Hemoptysis; Z68.41 Body mass index [BMI] 40.0-44.9, adult; I48.20 Chronic atrial fibrillation, unspecified; J44.1 Chronic obstructive pulmonary disease with (acute) exacerbation; E04.1 Nontoxic single thyroid nodule; E66.01 Morbid (severe) obesity due to excess calories; E66.9 Obesity, unspecified; E78.5 Hyperlipidemia, unspecified; E78.2 Mixed hyperlipidemia; F17.210 Nicotine dependence, cigarettes, uncomplicated; G47.33 Obstructive sleep apnea (adult) (pediatric); I73.9 Peripheral vascular disease, unspecified; I35.1 Nonrheumatic aortic (valve) insufficiency; I10 Essential (primary) hypertension; I48.91 Unspecified atrial fibrillation; J40 Bronchitis, not specified as acute or chronic; J44.9 Chronic obstructive pulmonary disease, unspecified; N40.0 Benign prostatic hyperplasia without lower urinary tract symptoms; Z79.01 Long term (current) use of anticoagulants; Z85.819 Personal history of malignant neoplasm of unspecified site of lip, oral cavity, and pharynx; Z20.822 Contact with and (suspected) exposure to COVID-19; Z79.82 Long term (current) use of aspirin; Z95.828 Presence of other vascular implants and grafts; Z99.89 Dependence on other enabling machines and devices
CPT/HCPCS: 36415; 71045; 71275; 76536; 80053; 82103; 82104; 82948; 83735; 83880; 83930; 83935; 84145; 84300; 84443; 84484; 85025; 85610; 85730; 86140; 86738; 87040; 87449; 87637; 87899; 88108; 88160; 88305; 88342; 93005; 94640; 99285; A9270; J0456; J0696; J1836; J2003; J2004; J2704; J2919; J3360; J7030; J7040; J7050; J7120; J7512; Q9967